=== PATIENT | female | born 1960 | race American Indian/Alaskan Native ===

== ENCOUNTER 2016-10-19 20:00 | Inpatient (IN) | payer MEDICAID ==
[2016-10-19 21:12] LABS: Hematocrit 32.4 % (30.3-42.9); Hemoglobin 10.6 gm/dl (10.1-14.3); Mean Corpuscular HGB Conc 33 % (30-34); Mean Corpuscular Hemoglobin 28 pg (28-32); Mean Corpuscular Volume 87 fl (79-97); Platelet Count 406 K/mm3 (140-440); Red Blood Count 3.72 M/mm3 (3.65-5.03); Red Cell Distribution Width 14.2 % (13.2-15.2)
[2016-10-19] MEDS ORDERED: ZOFRAN IV ONE (21:32)
[2016-10-19] MEDS ORDERED: NACL 0.9% 1000 ML 1,000 ML IV ONE (21:32)
[2016-10-19] MEDS ORDERED: TYLENOL PO ONE (21:32)
[2016-10-19 21:33] LABS: BUN/Creatinine Ratio 19.05; Calcium 9.1 mg/dL (8.4-10.2); Chloride 86.2 mmol/L (98-107); Potassium 3.5 mmol/L (3.6-5.0)
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
[2016-10-19 21:34] LABS: White Blood Count 26.1 K/mm3 (4.5-11.0)
[2016-10-19 22:26] LABS: Basophils % (Manual) 0 % (0.0-1.8); Blastocytes % (Manual) 0 %; Eosinophils % (Manual) 0 % (0.0-4.3)
[2016-10-19 22:27] LABS: Anisocytosis 1+; Hypochromasia 1+; Platelet Estimate Consistent w Auto; Poikilocytosis Few
[2016-10-19 22:28] LABS: Diff Status Complete; Giant Platelets Few
[2016-10-19] MEDS ORDERED: TYLENOL ONE (22:41)
[2016-10-19 23:11] LABS: Albumin 3.4 g/dL (3.9-5); Albumin/Globulin Ratio 0.7 %; Bilirubin,Direct 0.4 mg/dL (0-0.2); Bilirubin,Indirect 0.5 mg/dL; Bilirubin,Total 0.9 mg/dL (0.1-1.2); Total Protein 8.3 g/dL (6.3-8.2)
[2016-10-20] MEDS ORDERED: LASIX IV ONE (01:15)
[2016-10-20] MEDS ORDERED: DILAUDID IV ONE (01:15)
[2016-10-20] MEDS ORDERED: NACL 0.9% 1000 ML 1,000 ML IV ONE (01:15)
[2016-10-20] MEDS ORDERED: ZOFRAN IV ONE (01:15)
[2016-10-20 02:23] LABS: Bilirubin,Urine NEG (Negative); Blood,Urine NEG (Negative); Granular Casts,Urine 5 /LPF; Ketones,Urine NEG (Negative); Leukocyte Esterase,Urine NEG (Negative); Mucus,Urine FEW /HPF; Nitrite,Urine NEG (Negative); Urobilinogen,Urine < 2.0 mg/dL (<2.0); WBC,Urine < 1.0 /HPF (0.0-6.0)
[2016-10-20] MEDS ORDERED: TYLENOL PO PRN (03:11)
--- NOTE | 2016-10-20 03:19 | History and Physical Report ---
History of Present Illness Date of examination: 10/20/16 Chief complaint: Weakness History of present illness: Patient is a 56-year-old woman with a history of major depressive disorder, hepatitis C with cirrhosis and pancreatitis who presents with worsening constant fatigue x 2 weeks history of productive cough, body aches runny nose decrease appetite nausea without vomiting and abdominal discomfort. There is no aggravating or relieving factors. Chest x-ray is pending Medications and Allergies Allergies Allergy/AdvReac Type Severity Reaction Status Date / Time No Known Allergies Allergy Unverified 10/19/16 20:26 Home Medications Medication Instructions Recorded Confirmed Last Taken Type SEROquel 100 mg PO DAILY 10/19/16 10/19/16 Unknown History Seroquel 200 mg PO HS 10/19/16 10/19/16 Unknown History Zoloft 50 mg PO DAILY 10/19/16 10/19/16 Unknown History Active Meds: Active Medications Acetaminophen (Tylenol) 325 mg PO Q6H PRN PRN Reason: Pain, Mild (1-3) Heparin Sodium (Porcine) (Heparin) 5,000 unit SUB-Q Q12HR [facility] Sodium Chloride (Nacl 0.9% 1000 Ml) 1,000 mls @ 100 mls/hr IV DIRECT [facility] Lactulose (Cephulac) 20 gm PO Q6HR [facility] Miscellaneous Medication (Seroquel) 100 mg PO DAILY [facility] Miscellaneous Medication (Seroquel) 200 mg PO HS [facility] Miscellaneous Medication (Zoloft) 50 mg PO DAILY [facility] Ondansetron HCl (Zofran) 4 mg IV Q4H PRN PRN Reason: Nausea And Vomiting Pantoprazole Sodium (Protonix) 40 mg IV QDAY [facility] Review of Systems All systems: negative (as HPI and all other ROS reviewed and negative.) Exam - Physical Exam Narrative exam: GEN: Thin frail cachectic sick, NAD, AWAKE, ALERT, ORIENTATED 3 HEENT: NCAT, PERRL, EOMI, OP CLEAR NECK: SUPPLE, NO THYROMEGALY, NO JVD, NO LAD CVS: Tachycardia, NORMAL S1S2 LUNGS/CHEST: CTA B, NORMAL CHEST EXPANSION B, GOOD AIR ENTRY B ABD: SOFT, DISTENDED, NONTENDER GBS, NO REBOUND OR GUARDING EXT/SKIN: Bilateral SIGNIFICANT EDEMA MSK: FROM X 4 EXTREMITIES NEURO: CN 2-12 GROSSLY INTACT, NO new FOCAL DEFICITS PSY: CALM - Constitutional Vitals: Temp Pulse Resp BP Pulse Ox 98.7 F 99 H 20 106/86 99 10/19/16 20:15 10/19/16 20:15 10/19/16 20:37 10/19/16 20:15 10/19/16 20:37 Results - Labs CBC & Chem 7: 10/19/16 20:51 10/19/16 20:51 Labs: Abnormal lab results 10/19/16 10/19/16 10/19/16 Range/Units 20:51 20:51 20:51 WBC 26.1 H (4.5-11.0) K/mm3 Lymphocytes % (Manual) 6.5 L (13.4-35.0) % Monocytes % (Manual) 12.0 H (0.0-7.3) % Seg Neutrophils # Man 17.2 H (1.8-7.7) K/mm3 Monocytes # (Manual) 3.1 H (0.0-0.8) K/mm3 Sodium 126 L (137-145) mmol/L Potassium 3.5 L (3.6-5.0) mmol/L Chloride 86.2 L (98-107) mmol/L Carbon Dioxide 16 L (22-30) mmol/L BUN 101 H (7-17) mg/dL Creatinine 5.3 H (0.7-1.2) mg/dL Glucose 115 H (65-100) mg/dL Direct Bilirubin 0.4 H (0-0.2) mg/dL Ammonia (25-60) umol/L NT-Pro-B Natriuret Pep (0-900) pg/mL Total Protein 8.3 H (6.3-8.2) g/dL Albumin 3.4 L (3.9-5) g/dL 10/19/16 10/20/16 Range/Units 20:51 01:28 WBC (4.5-11.0) K/mm3 Lymphocytes % (Manual) (13.4-35.0) % Monocytes % (Manual) (0.0-7.3) % Seg Neutrophils # Man (1.8-7.7) K/mm3 Monocytes # (Manual) (0.0-0.8) K/mm3 Sodium (137-145) mmol/L Potassium (3.6-5.0) mmol/L Chloride (98-107) mmol/L Carbon Dioxide (22-30) mmol/L BUN (7-17) mg/dL Creatinine (0.7-1.2) mg/dL Glucose (65-100) mg/dL Direct Bilirubin (0-0.2) mg/dL Ammonia 68.0 H (25-60) umol/L NT-Pro-B Natriuret Pep 965.1 H (0-900) pg/mL Total Protein (6.3-8.2) g/dL Albumin (3.9-5) g/dL Assessment and Plan Patient is a 56-year-old woman with a history of major depressive disorder, hepatitis C with cirrhosis and pancreatitis who presents with worsening constant fatigue with a 2 weeks history of productive cough, body aches, runny nose, decrease appetite, nausea without vomiting and generalized abdominal discomfort. There is no aggravating or relieving factors. Chest x-ray is pending. -Acute renal failure, etiology to be evaluated: Get renal ultrasound & consult nephrology -Hyponatremia history of cirrhosis -Hypokalemia: Replace -Hyperammonemia: Treated with lactulose -Hepatorenal syndrome: Consult GI -SIRS: Get blood cultures and empirically treated with Rocephin -DVT prophylaxis: Subcutaneous heparin -Upper respiratory infection: Treat symptomatically
--- NOTE | 2016-10-20 04:33 | Ultrasound Report ---
FINAL REPORT EXAM: US RENAL BILAT HISTORY: ARF TECHNIQUE: Renal ultrasound PRIORS: None. FINDINGS: The kidneys are normal in size, contour and echogenicity. The right kidney measures 10.6 x 4.4 x 5.1 centimeter. Renal cortex measures 1.1 centimeter. There an extrarenal pelvis. The left kidney measures 11.1 x 5.8 x 5 centimeter. The renal cortex measures 1.5 centimeter. There is no evidence of hydronephrosis or nephrolithiasis. Luu catheter balloon is seen in the bladder. IMPRESSION: No hydronephrosis.
[2016-10-20] MEDS: CEPHULAC PO SCH ×3 (05:23→17:08)
[2016-10-20] MEDS: NACL 0.9% 1000 ML 1,000 ML IV SCH ×2 (05:46→17:08)
[2016-10-20] MEDS: PROTONIX IV SCH (09:31)
[2016-10-20] MEDS: ROCEPHIN/NS 1 GM/50 ML 1 GM/50 ML BAG IV SCH (09:31)
[2016-10-20] MEDS: ZOLOFT PO SCH (09:32)
--- NOTE | 2016-10-20 09:55 | XRay Report ---
AP CHEST: HISTORY: chest pain AP view of the chest demonstrates a normal mediastinal and cardiac contour with clear lungs and normal bony and soft tissue structures. Mild chronic interstitial changes are noted in the lower lung zones. IMPRESSION: No acute cardiopulmonary process.
[2016-10-20] MEDS: HEPARIN SUB-Q SCH ×2 (10:04→22:11)
[2016-10-20 10:41] LABS: Mean Corpuscular HGB Conc 32 % (30-34); Mean Corpuscular Hemoglobin 28 pg (28-32); Mean Corpuscular Volume 88 fl (79-97); Platelet Count 375 K/mm3 (140-440); Red Blood Count 3.19 M/mm3 (3.65-5.03); Red Cell Distribution Width 14.2 % (13.2-15.2)
[2016-10-20 10:42] LABS: White Blood Count 23.2 K/mm3 (4.5-11.0)
[2016-10-20 10:51] LABS: BUN/Creatinine Ratio 20.47; Calcium 8.4 mg/dL (8.4-10.2); Potassium 3.1 mmol/L (3.6-5.0)
[2016-10-20 11:18] LABS: Anisocytosis 1+; Basophils % (Manual) 0 % (0.0-1.8); Blastocytes % (Manual) 0 %; Eosinophils % (Manual) 0 % (0.0-4.3); Poikilocytosis Few
[2016-10-20 11:19] LABS: Diff Status Complete; Hypochromasia Few
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
[2016-10-20] MEDS ORDERED: K-DUR PO ONE (16:10)
--- NOTE | 2016-10-20 16:10 | Event Note ---
Date: 10/20/16 Patient seen and examined. Admitted this morning with acute renal failure. We' ll continue current management and plan as dictated in the HPI. -Acute renal failure, etiology to be evaluated: Get renal ultrasound & pending nephrology consult -Hyponatremia likely due to hepatitic cirrhosis -Hypokalemia: Continue to Replace -Hyperammonemia: Treated with lactulose -Hepatorenal syndrome: Consulted GI -SIRS: Get blood cultures and empirically treated with Rocephin -DVT prophylaxis: Subcutaneous heparin -Upper respiratory infection: Treat symptomatically and continue Rocephin
[2016-10-21] MEDS: CEPHULAC PO SCH ×4 (00:05→18:37)
[2016-10-21] MEDS: NACL 0.9% 1000 ML 1,000 ML IV SCH ×2 (02:17→13:12)
[2016-10-21 05:40] LABS: Hematocrit 26.2 % (30.3-42.9); Hemoglobin 8.6 gm/dl (10.1-14.3); Mean Corpuscular HGB Conc 33 % (30-34); Mean Corpuscular Hemoglobin 29 pg (28-32); Mean Corpuscular Volume 89 fl (79-97); Platelet Count 371 K/mm3 (140-440); Red Blood Count 2.94 M/mm3 (3.65-5.03); Red Cell Distribution Width 14.3 % (13.2-15.2)
[2016-10-21 05:42] LABS: White Blood Count 24.3 K/mm3 (4.5-11.0)
[2016-10-21 06:50] LABS: Albumin 2.4 g/dL (3.9-5); Albumin/Globulin Ratio 0.6 %; BUN/Creatinine Ratio 28.26; Bilirubin,Total 0.5 mg/dL (0.1-1.2); Chloride 110.2 mmol/L (98-107); Potassium 3.4 mmol/L (3.6-5.0); Total Protein 6.6 g/dL (6.3-8.2)
--- NOTE | 2016-10-21 09:22 | Progress Note ---
Assessment and Plan 1. NAI likely 2/2 prerenal azotemia UA + for protein suggesting Underlying CKD. No baseline CR available Renal U/S reviewed. No hydronephrosis seen. She has well preserved cortex. Her symptoms could be 2/2 uremia 2. Uremic symptoms 3. Hepatitis C infection-untreated 4. Liver cirrhosis 5. Hypovomeic hyponatremia 6. Hypokalemia 7. AG metabolic acidosis 2/2 likley uremia 8. Anemia, unspecified cause likely multifactorial including CKD 9. Leukocytosis Plan: -BUN/CR improving, f/u on urine studies-urine P/C, lytes -Work up for NAI/proteinuria including YURI panel, complements, ANCAs, U-lytes, SPEP -Continue D5W with sodium bicarb -Replete potassium, K improving -Check magnesium -Strict I/Os -Will consider renal replacement therapy if renal function remains same -Obtain records from [facility] ? baseline CR, GI notes etc.. -Has significant leukocytes. Infectious work up in progress Subjective Date of service: 10/21/16 Interval history: No new changes, No SOB/CP Objective - Vital Signs Vital signs: Vital Signs - 12hr 10/21/16 10/21/16 10/21/16 00:00 04:15 07:00 Temperature 98.1 F 98.2 F 982 F H Pulse Rate [ 88 84 81 Left] Respiratory 20 20 18 Rate Blood Pressure 112/78 110/70 113/75 [Left Arm] O2 Sat by Pulse 92 95 95 Oximetry - General Appearance General appearance: well-developed, well-nourished, appears stated age, fatigue , frail EENT: PERRL, mucous membranes moist Neck: no JVD, no thyromegaly, no carotid bruit, supple Respiratory: Present: Clear to Ascultation, Other (a) Cardiology: regular, normal heart rate, S1S2, no murmurs Gastrointestinal: normoactive bowel sounds, no tenderness Integumentary: no rash, warm and dry Neurologic: no focal deficit, alert and oriented x3, reflexes 2+ and symmetric, gait normal, strength 5/5 Musculoskeletal: no deformities, no erythema, no cyanosis, no clubbing Psychiatric: mood/affect appropriate, cooperative - Lab 10/21/16 04:59 10/21/16 04:59 Most recent lab results Calcium 8.0 mg/dL (8.4-10.2) L 10/21/16 04:59
[2016-10-21] MEDS: ROCEPHIN/NS 1 GM/50 ML 1 GM/50 ML BAG IV SCH (09:43)
[2016-10-21] MEDS: HEPARIN SUB-Q SCH ×2 (09:44→22:09)
[2016-10-21] MEDS: ZOLOFT PO SCH (09:45)
[2016-10-21] MEDS: PROTONIX IV SCH (09:45)
--- NOTE | 2016-10-21 15:03 | Progress Note ---
Assessment and Plan Assessment and plan: Patient is a 56-year-old woman with a history of major depressive disorder, hepatitis C with cirrhosis and pancreatitis who presents with worsening constant fatigue x 2 weeks, body aches, decrease appetite nausea without vomiting and abdominal discomfort. She also complained of upper respiratory symptoms. In the ER she had have white count of 26.1, sodium 126 and creatinine 5.3. Acute renal failure, - etiology to be evaluated: -renal ultrasound showed medical renal disease -Nephrology following Pulmonary edema -Likely from IV fluid hydration and hypoalbuminemia -We will reduce the rate of IV fluid, will get chest x-ray Hyponatremia likely due to hepatitic cirrhosis - Improved Hypokalemia: Continue to Replace Hyperammonemia: Treated with lactulose Hepatorenal syndrome: Consulted GI, will follow the recommendation SIRS: Follow blood cultures and empirically treated with Rocephin Upper respiratory infection: Treat symptomatically and continue Rocephin DVT prophylaxis: Subcutaneous heparin History Interval history: Patient seen and examined. Medical records and medication list reviewed. No acute event overnight noted by the RN. Patient complains of cough and exertional dyspnea. Discussed plan of care at bedside with patient and her family members. Hospitalist Physical - Physical exam Narrative exam: GENERAL: -[place] female Malnourished appearing older than her stated age, lying on bed appeared to be in no discomfort. HEENT: Normocephalic. Atraumatic. No conjunctival congestion or icterus. Patient has moist mucous membranes. NECK: Supple. Trachea midline. CHEST/LUNGS: Coarse breath sounds auscultated bilaterally, breathing nonlabored. No wheezes crackles or rhonchi. HEART/CARDIOVASCULAR: Regular in rate and rhythm. S1 and S2 positive. ABDOMEN: Abdomen is soft, nontender. Patient has normal bowel sounds. SKIN: There is no rash. Warm and dry. NEURO: No focal motor deficit. Follows command. MUSCULOSKELETAL: No joint effusion or tenderness. EXTRIMITY: No edema, no cyanosis or clubbing. PSYCH: Cooperative. - Constitutional Vitals: Temp Pulse Resp BP Pulse Ox 982 F H 81 18 113/75 95 10/21/16 07:00 10/21/16 07:00 10/21/16 07:00 10/21/16 07:00 10/21/16 07:00 Results - Labs CBC & Chem 7: 10/22/16 04:59 10/22/16 04:59 Labs: Laboratory Last Values WBC 24.3 K/mm3 (4.5-11.0) H 10/21/16 04:59 RBC 2.94 M/mm3 (3.65-5.03) L 10/21/16 04:59 Hgb 8.6 gm/dl (10.1-14.3) L 10/21/16 04:59 Hct 26.2 % (30.3-42.9) L 10/21/16 04:59 MCV 89 fl (79-97) 10/21/16 04:59 MCH 29 pg (28-32) 10/21/16 04:59 MCHC 33 % (30-34) 10/21/16 04:59 RDW 14.3 % (13.2-15.2) 10/21/16 04:59 Plt Count 371 K/mm3 (140-440) 10/21/16 04:59 Add Manual Diff Complete 10/20/16 10:00 Total Counted 100 10/20/16 10:00 Seg Neuts % (Manual) 77.0 % (40.0-70.0) H 10/20/16 10:00 Band Neutrophils % 7.0 % 10/20/16 10:00 Lymphocytes % (Manual) 8.0 % (13.4-35.0) L 10/20/16 10:00 Reactive Lymphs % (Man) 0 % 10/20/16 10:00 Monocytes % (Manual) 8.0 % (0.0-7.3) H 10/20/16 10:00 Eosinophils % (Manual) 0 % (0.0-4.3) 10/20/16 10:00 Basophils % (Manual) 0 % (0.0-1.8) 10/20/16 10:00 Metamyelocytes % 0 % 10/20/16 10:00 Myelocytes % 0 % 10/20/16 10:00 Promyelocytes % 0 % 10/20/16 10:00 Blast Cells % 0 % 10/20/16 10:00 Nucleated RBC % Not Reportable 10/20/16 10:00 Seg Neutrophils # Man 17.9 K/mm3 (1.8-7.7) H 10/20/16 10:00 Band Neutrophils # 1.6 K/mm3 10/20/16 10:00 Lymphocytes # (Manual) 1.9 K/mm3 (1.2-5.4) 10/20/16 10:00 Abs React Lymphs (Man) 0.0 K/mm3 10/20/16 10:00 Monocytes # (Manual) 1.9 K/mm3 (0.0-0.8) H 10/20/16 10:00 Eosinophils # (Manual) 0.0 K/mm3 (0.0-0.4) 10/20/16 10:00 Basophils # (Manual) 0.0 K/mm3 (0.0-0.1) 10/20/16 10:00 Metamyelocytes # 0.0 K/mm3 10/20/16 10:00 Myelocytes # 0.0 K/mm3 10/20/16 10:00 Promyelocytes # 0.0 K/mm3 10/20/16 10:00 Blast Cells # 0.0 K/mm3 10/20/16 10:00 WBC Morphology Not Reportable 10/20/16 10:00 Hypersegmented Neuts Not Reportable 10/20/16 10:00 Hyposegmented Neuts Not Reportable 10/20/16 10:00 Hypogranular Neuts Not Reportable 10/20/16 10:00 Smudge Cells Not Reportable 10/20/16 10:00 Toxic Granulation Not Reportable 10/20/16 10:00 Toxic Vacuolation Not Reportable 10/20/16 10:00 Dohle Bodies Not Reportable 10/20/16 10:00 Pelger-Huet Anomaly Not Reportable 10/20/16 10:00 Mariana Rods Not Reportable 10/20/16 10:00 Platelet Estimate Not Reportable 10/20/16 10:00 Clumped Platelets Not Reportable 10/20/16 10:00 Plt Clumps, EDTA Not Reportable 10/20/16 10:00 Large Platelets Not Reportable 10/20/16 10:00 Giant Platelets Not Reportable 10/20/16 10:00 Platelet Satelliting Not Reportable 10/20/16 10:00 Plt Morphology Comment Not Reportable 10/20/16 10:00 RBC Morphology Not Reportable 10/20/16 10:00 Dimorphic RBCs Not Reportable 10/20/16 10:00 Polychromasia Not Reportable 10/20/16 10:00 Hypochromasia Few 10/20/16 10:00 Poikilocytosis Few 10/20/16 10:00 Anisocytosis 1+ 10/20/16 10:00 Microcytosis Not Reportable 10/20/16 10:00 Macrocytosis Not Reportable 10/20/16 10:00 Spherocytes Not Reportable 10/20/16 10:00 Pappenheimer Bodies Not Reportable 10/20/16 10:00 Sickle Cells Not Reportable 10/20/16 10:00 Target Cells Not Reportable 10/20/16 10:00 Tear Drop Cells Not Reportable 10/20/16 10:00 Ovalocytes Not Reportable 10/20/16 10:00 Helmet Cells Not Reportable 10/20/16 10:00 [place] Bodies Not Reportable 10/20/16 10:00 [place] Rings Not Reportable 10/20/16 10:00 [place] Cells Not Reportable 10/20/16 10:00 Bite Cells Not Reportable 10/20/16 10:00 Crenated Cell Not Reportable 10/20/16 10:00 Elliptocytes Not Reportable 10/20/16 10:00 Acanthocytes (Spur) Not Reportable 10/20/16 10:00 Rouleaux Not Reportable 10/20/16 10:00 Hemoglobin C Crystals Not Reportable 10/20/16 10:00 Schistocytes Not Reportable 10/20/16 10:00 Malaria parasites Not Reportable 10/20/16 10:00 [place] Bodies Not Reportable 10/20/16 10:00 Hem Pathologist Commnt No 10/20/16 10:00 Sodium 140 mmol/L (137-145) D 10/21/16 04:59 Potassium 3.4 mmol/L (3.6-5.0) L 10/21/16 04:59 Chloride 110.2 mmol/L (98-107) H 10/21/16 04:59 Carbon Dioxide 16 mmol/L (22-30) L 10/21/16 04:59 Anion Gap 17 mmol/L 10/21/16 04:59 BUN 65 mg/dL (7-17) H 10/21/16 04:59 Creatinine 2.3 mg/dL (0.7-1.2) H 10/21/16 04:59 Estimated GFR 26 ml/min 10/21/16 04:59 BUN/Creatinine Ratio 28.26 % 10/21/16 04:59 Glucose 92 mg/dL (65-100) 10/21/16 04:59 Calcium 8.0 mg/dL (8.4-10.2) L 10/21/16 04:59 Total Bilirubin 0.5 mg/dL (0.1-1.2) 10/21/16 04:59 Direct Bilirubin 0.4 mg/dL (0-0.2) H 10/19/16 20:51 Indirect Bilirubin 0.5 mg/dL 10/19/16 20:51 AST 21 units/L (5-40) 10/21/16 04:59 ALT 7 units/L (7-56) 10/21/16 04:59 Alkaline Phosphatase 85 units/L (35-129) 10/21/16 04:59 Ammonia 68.0 umol/L (25-60) H 10/20/16 01:28 NT-Pro-B Natriuret Pep 965.1 pg/mL (0-900) H 10/19/16 20:51 Total Protein 6.6 g/dL (6.3-8.2) D 10/21/16 04:59 Albumin 2.4 g/dL (3.9-5) L 10/21/16 04:59 Albumin/Globulin Ratio 0.6 % 10/21/16 04:59 Lipase 37 units/L (13-60) 10/19/16 20:51 Urine Color Yellow (Yellow) 10/20/16 01:18 Urine Turbidity Clear (Clear) 10/20/16 01:18 Urine pH 5.0 (5.0-7.0) 10/20/16 01:18 Ur Specific [place] 1.017 (1.003-1.030) 10/20/16 01:18 Urine Protein 30 mg/dl mg/dL (Negative) 10/20/16 01:18 Urine Glucose (UA) Neg mg/dL (Negative) 10/20/16 01:18 Urine Ketones Neg mg/dL (Negative) 10/20/16 01:18 Urine Blood Neg (Negative) 10/20/16 01:18 Urine Nitrite Neg (Negative) 10/20/16 01:18 Urine Bilirubin Neg (Negative) 10/20/16 01:18 Urine Urobilinogen < 2.0 mg/dL (<2.0) 10/20/16 01:18 Ur Leukocyte Esterase Neg (Negative) 10/20/16 01:18 Urine WBC (Auto) < 1.0 /HPF (0.0-6.0) 10/20/16 01:18 Urine RBC (Auto) 4.0 /HPF (0.0-6.0) 10/20/16 01:18 U Epithel Cells (Auto) 1.0 /HPF (0-13.0) 10/20/16 01:18 Amorphous Crystals 2+ 10/20/16 01:18 Hyaline Casts 3 /LPF 10/20/16 01:18 Granular Casts 5 /LPF 10/20/16 01:18 Urine Mucus Few /HPF 10/20/16 01:18 Urine Osmolality 462 Mosm/kg 10/21/16 07:50 Hepatitis A IgM Ab Non-reactive (NonReactive) 10/20/16 21:48 Hep Bs Antigen Non-reactive (Negative) 10/20/16 21:48 Hep B Core IgM Ab Non-reactive (NonReactive) 10/20/16 21:48 Hepatitis C Antibody Reactive (NonReactive) 10/20/16 21:48 - Imaging and Cardiology Chest x-ray: report reviewed
--- NOTE | 2016-10-21 16:11 | Gastroenterology Consultation ---
History of Present Illness - Reason for Consult Consult date: 10/21/16 cirrhosis, hepatitis C Requesting physician: SCOTTIE BRADLEY - History of Present Illness The patient is a 56 year old female followed normally at [facility] for cirrhosis and hepatitis C now brought to the hospital by her family for progressive weakness. She was found to be in renal failure with electrolyte derrangements. She is a poor historian, but also report being treated for psychotic depression. The patient has known of her hepatitis C for several years and there has been apparent discussion of therapy. She is actively drinking 4 large beers ("tall boys") on a daily basis. She has had ascites in the past according to the family but no episodes of GI bleeding. Past History Past Medical History: other (hepatitis C, liver cirrhosis, kidney disease ) Past Surgical History: No surgical history Social history: denies: smoking, alcohol abuse, IV drug use Family history: other (No FH Kidney disease ) Medications and Allergies Allergies Allergy/AdvReac Type Severity Reaction Status Date / Time No Known Allergies Allergy Unverified 10/19/16 20:26 Home Medications Medication Instructions Recorded Confirmed Last Taken Type SEROquel 100 mg PO DAILY 10/19/16 10/19/16 Unknown History Seroquel 200 mg PO HS 10/19/16 10/19/16 Unknown History Zoloft 50 mg PO DAILY 10/19/16 10/19/16 Unknown History Active Meds: Active Medications Acetaminophen (Tylenol) 325 mg PO Q6H PRN PRN Reason: Pain, Mild (1-3) Last Admin: 10/21/16 09:45 Dose: 325 mg Albuterol/Ipratropium (Duoneb 0.5 Mg-3 Mg/3 Ml Soln) 1 ampul IH Q6HRT [facility] Heparin Sodium (Porcine) (Heparin) 5,000 unit SUB-Q Q12HR AMELIA Last Admin: 10/21/16 09:44 Dose: 5,000 unit Sodium Chloride (Nacl 0.9% 1000 Ml) 1,000 mls @ 50 mls/hr IV DIRECT AMELIA Last Admin: 10/21/16 13:12 Dose: 100 mls/hr Ceftriaxone Sodium (Rocephin/Ns 1 Gm/50 Ml) 1 gm in 50 mls @ 100 mls/hr IV Q24HR AMELIA PRN Reason: Protocol Last Admin: 10/21/16 09:43 Dose: 100 mls/hr Sodium Bicarbonate 150 meq/ (Dextrose) 1,150 mls @ 125 mls/hr IV DIRECT [facility] Lactulose (Cephulac) 20 gm PO Q6HR [facility] Last Admin: 10/21/16 12:32 Dose: 20 gm Ondansetron HCl (Zofran) 4 mg IV Q4H PRN PRN Reason: Nausea And Vomiting Pantoprazole Sodium (Protonix) 40 mg PO DAILY [facility] Quetiapine Fumarate (Seroquel) 100 mg PO DAILY [facility] Last Admin: 10/21/16 09:45 Dose: 100 mg Quetiapine Fumarate (Seroquel) 200 mg PO HS [facility] Last Admin: 10/20/16 22:10 Dose: 200 mg Sertraline HCl (Zoloft) 50 mg PO DAILY [facility] Last Admin: 10/21/16 09:45 Dose: 50 mg Review of Systems - Review of Systems Constitutional: no weight loss, no weight gain Eyes: no change in vision Ears, Nose, Throat: no decreased hearing, no difficulty swallowing, no epistaxis Breasts: deferred Cardiovascular: no chest pain, no shortness of breath Respiratory: no cough, no shortness of breath, no wheezing Gastrointestinal: no abdominal pain, no nausea, no vomiting, no diarrhea, no constipation, no change in bowel habits, no hematemesis, no coffee ground emesis Rectal: no pain Female Genitourinary: deferred Musculoskeletal: no gait dysfunction Integumentary: no rash, no pruritis, no jaundice Neurological: weakness, memory loss, no head injury, no paralysis Psychiatric: memory loss, no anxiety Endocrine: no cold intolerance, no heat intolerance Hematologic/Lymphatic: no easy bruising, no easy bleeding Allergic/Immunologic: no wheezing Exam - Constitutional Vital Signs: Temp Pulse Resp BP Pulse Ox 982 F H 81 18 113/75 95 10/21/16 07:00 10/21/16 07:00 10/21/16 07:00 10/21/16 07:00 10/21/16 07:00 General appearance: no acute distress, well-nourished, disheveled - EENT Eyes: PERRL ENT: hearing intact, clear oral mucosa, poor dentition - Neck Neck: supple, normal ROM, no masses or JVD - Respiratory Respiratory effort: normal Respiratory: bilateral: CTA - Breasts Breasts: deferred - Cardiovascular Rhythm: regular Heart Sounds: Present: S1 & S2. Absent: gallop, rub Extremities: pulses intact, No edema, normal color, Full ROM - Gastrointestinal General gastrointestinal: Present: soft, non-tender, non-distended, normal bowel sounds. Absent: hepatomegaly, splenomegaly, mass Rectal Exam: deferred - Genitourinary Female Genitourinary: deferred - Integumentary Integumentary: Present: clear, warm, dry - Neurologic Neurological: oriented to person, oriented to time, strength equal bilaterally, other (knows the president, year, but not the month) - Psychiatric Psychiatric: appropriate mood/affect, no intact judgment & insight, memory intact - Labs CBC & Chem 7: 10/21/16 04:59 10/21/16 04:59 Lab Results: Laboratory Results - last 24 hr 10/20/16 10/21/16 10/21/16 21:48 04:59 04:59 WBC 24.3 H RBC 2.94 L Hgb 8.6 L Hct 26.2 L MCV 89 MCH 29 MCHC 33 RDW 14.3 Plt Count 371 Sodium 140 D Potassium 3.4 L Chloride 110.2 H Carbon Dioxide 16 L Anion Gap 17 BUN 65 H Creatinine 2.3 H Estimated GFR 26 BUN/Creatinine Ratio 28.26 Glucose 92 Calcium 8.0 L Total Bilirubin 0.5 AST 21 ALT 7 Alkaline Phosphatase 85 Total Protein 6.6 D Albumin 2.4 L Albumin/Globulin Ratio 0.6 Urine Osmolality Hepatitis A IgM Ab Non-reactive Hep Bs Antigen Non-reactive Hep B Core IgM Ab Non-reactive Hepatitis C Antibody Reactive 10/21/16 07:50 WBC RBC Hgb Hct MCV MCH MCHC RDW Plt Count Sodium Potassium Chloride Carbon Dioxide Anion Gap BUN Creatinine Estimated GFR BUN/Creatinine Ratio Glucose Calcium Total Bilirubin AST ALT Alkaline Phosphatase Total Protein Albumin Albumin/Globulin Ratio Urine Osmolality 462 Hepatitis A IgM Ab Hep Bs Antigen Hep B Core IgM Ab Hepatitis C Antibody Assessment and Plan - Patient Problems (1) Cirrhosis Current Visit: Yes Status: Acute Qualifiers: Hepatic cirrhosis type: H Ascites presence: A Plan to address problem: Stable. Will order u/s of abdomen to assess for focal hepatic lesions, ascites. (2) Hepatitis C Current Visit: Yes Status: Acute Qualifiers: Viral hepatitis chronicity: V Hepatic coma status: H Plan to address problem: Stable hepatitis C. Not an ideal candidate presently for therapy due to alcoholism and potential compliance issues. She will continue f/u at [facility] on discharge for this. (3) Leukocytosis Current Visit: Yes Status: Acute Qualifiers: Leukocytosis type: L Plan to address problem: Uncertain origin
[2016-10-21] MEDS: DUONEB 0.5 MG-3 MG/3 ML SOLN IH SCH ×2 (16:40→20:45)
[2016-10-22] MEDS: CEPHULAC PO SCH ×5 (01:17→18:59)
[2016-10-22] MEDS: NACL 0.9% 1000 ML 1,000 ML IV SCH (01:58)
[2016-10-22] MEDS: DUONEB 0.5 MG-3 MG/3 ML SOLN IH SCH ×4 (02:42→19:37)
[2016-10-22 05:39] LABS: Hematocrit 23.8 % (30.3-42.9); Hemoglobin 7.4 gm/dl (10.1-14.3); Mean Corpuscular HGB Conc 31 % (30-34); Mean Corpuscular Hemoglobin 28 pg (28-32); Mean Corpuscular Volume 90 fl (79-97); Platelet Count 395 K/mm3 (140-440); Red Blood Count 2.64 M/mm3 (3.65-5.03); Red Cell Distribution Width 14.8 % (13.2-15.2)
[2016-10-22 05:51] LABS: White Blood Count 25.8 K/mm3 (4.5-11.0)
[2016-10-22 06:16] LABS: BUN/Creatinine Ratio 26.92; Calcium 7.3 mg/dL (8.4-10.2); Chloride 116.3 mmol/L (98-107)
[2016-10-22 06:40] LABS: Potassium 2.9 mmol/L (3.6-5.0)
[2016-10-22] MEDS ORDERED: K-DUR PO ONE ×2 (06:44→09:00)
--- NOTE | 2016-10-22 07:39 | XRay Report ---
AP CHEST: HISTORY: Short of breath AP view of the chest demonstrates a normal mediastinal and cardiac contour with clear lungs and normal bony and soft tissue structures. IMPRESSION: No acute cardiopulmonary process is appreciated. No significant change since 10/19/16.
--- NOTE | 2016-10-22 07:59 | Admit Criteria Form ---
Admission Criteria Documentation: RENAL FAILURE, ACUTE Clinical Indications for Admission to Inpatient Care ( Place 'X' for any and all applicable criteria): Admission is indicated for ALL (if I & II) or III of the following [A](2)(3)(4)( 5)(6)(7): [X]I. Acute renal failure as indicated by ANY ONE of the following: [X]a) A 3-fold rise in serum creatinine from baseline [X]b) Serum creatinine greater than 4 mg/dL (354 micromoles/L) with an acute rise greater than 0.5 mg/dL (44.2 micromoles/L) [ ]c) Reduction of more than 75% in estimated glomerular filtration rate from baseline [ ]d) Estimated glomerular filtration rate less than 35 mL/min/1.73m2 (0.59mL/sec/1.73m2)in a child up to 18 years of age [ ]e) Anuria indicated by ALL of the following: [ ]i) Adequate volume status [ ]ii) Cessation of urine output indicated by ANY ONE of the following: [ ]1) Urine output less than 0.3 mL/kg/hr for 24 hours [ ]2) Anuria (urine output less than 0.1 mL/kg/ hr) for 12 hours [ ] II. Renal failure cannot be managed in an outpatient setting or observational care setting as indicating by ANY ONE of the following: [ ]a) Altered mental status that is severe or persistent [ ]b) Volume overload or Respiratory distress (eg, clinically significant pulmonary edema) that is severe or persistent [ ]c) Cardiac arrhythmias of immediate concern [ ]d) Hemodynamic instability [ ]e) Clinically significant electrolyte abnormality that requires inpatient care (eg, hyperkalemia with severe ECG findings)[B] [ ]f) Clinically significant metabolic abnormality (eg, acidosis) that is severe or persistent [ ]g) Acute treatment of renal failure (eg, renal replacement therapy) not feasible or appropriate in observational care setting [ ]h) Clinical situation too unstable or uncertain (eg, inadequate urine output, ongoing decline in renal function, etiology unclear) [ ]i) Necessary support and caregiver ability to comply with outpatient treatment cannot be arranged in observation care timeframe (eg, within 24 hours) [ ]j) Other significant finding or clinical condition judged not to be within scope of observation care [ ]III.General contraindications and/or Inappropriate clinical situations for Observational Care in patients with Acute Renal Failure, when ANY ONE of the following is required: [ ]a) Prediction of prolongation of LOS based on ANY ONE of the following may be considered as a contraindication for observational care 2, 3, 4, 5, 6, 7, 8 , 9, 10, 11 [ ]i) Age > 65 yrs. [ ]ii) Patient arriving by ambulance [ ]iii) Patient with high acuity [ ]iv) Patient requiring vital sign monitoring [ ]v) Patient on IV medication [ ]b) Systolic blood pressures 180mmHg 3,12 [ ]c) Patient with altered mental status including delirium and other alteration of consciousness, (3) [ ]d) Patient whose discharge disposition will be to a intermediate home or rehabilitation home should not be managed in Emergency Department Observation Unit. CMS rule requires 3 days hospital stay before such placement.3,13 [ ]e) Patient with failure to thrive due to broad array of etiologies 3, 16,17 [ ]f) Inability to ambulate 3,14 Extended stay beyond goal length of stay may be needed for(13) [ ]a) Continuing uremic complications [ ]b) Care for comorbidities [ ]c) acute renal failure [ ]d) Need for dialysis The original [email or web address] content created by [email or web address] has been revised. The portions of the content which have been revised are identified through the use of italic text or in bold, and [facility] has neither reviewed nor approved the modified material. All other unmodified content is copyright [email or web address]. Please see references footnoted in the original [email or web address] edition 2016 Admission Criteria Met: Yes
[2016-10-22 08:50] LABS: Basophils % (Manual) 0 % (0.0-1.8); Blastocytes % (Manual) 0 %; Eosinophils % (Manual) 0 % (0.0-4.3)
[2016-10-22 08:51] LABS: Anisocytosis 1+; Diff Status Complete; Poikilocytosis 1+
--- NOTE | 2016-10-22 09:40 | Ultrasound Report ---
ULTRASOUND ABDOMEN COMPLETE: Technique: Transabdominal ultrasound with color Doppler interrogation. History: Cirrhosis, ascites, hepatoma. Findings: The liver is normal size, contour and echotexture. There are no convincing cirrhotic changes in the liver on ultrasound. No liver mass is identified. The gallbladder dimensions are within normal limits without intraluminal stone, wall thickening, or pericholecystic fluid. The CBD is normal caliber. The visualized portions of the pancreas including the head and proximal body are within normal limits. The kidneys demonstrate no hydronephrosis or mass. The renal parenchyma is slightly echogenic consistent with renal parenchymal disease. The spleen and aorta are within normal limits. No aneurysmal dilatation is noted. No ascites. IMPRESSION: Slightly echogenic kidneys consistent with mild renal parenchymal disease. Otherwise, unremarkable exam of the abdomen.
--- NOTE | 2016-10-22 09:45 | Progress Note ---
Assessment and Plan 1. NAI likely 2/2 prerenal azotemia 2. Uremic symptoms 3. Hepatitis C infection-untreated 4. Liver cirrhosis 5. Hypovomeic hyponatremia 6. Hypokalemia 7. AG metabolic acidosis 2/2 likley uremia 8. Anemia, unspecified cause likely multifactorial including CKD 9. Leukocytosis Plan: -BUN/CR significantly improved from her admission( 103/5.4 to the current level of 35/1.3) - UA + for protein suggesting Underlying CKD. No baseline CR available Renal U/S reviewed. No hydronephrosis seen. She has well preserved cortex. -Follow up on the remaining work up for proteinuria -Hyponatremia resolved -She has worsening acidosis despite bicarb drip. Obtain lactic acid level, ketones, ABG for further evaluation. She has tachypenia likley to compensate for her metabolic acidosis. CxR with no acute findings. -Replete potassium IV/PO.Check magesium level -F/u on work up for leukocytes Subjective Date of service: 10/22/16 Interval history: No new changes. SOB improving Objective - Vital Signs Vital signs: Vital Signs - 12hr 10/22/16 10/22/16 10/22/16 00:05 02:35 02:47 Temperature 99.2 F Pulse Rate [ 99 H 101 H Anterior Bilateral Throughout] Pulse Rate [ 121 H Left] Respiratory 20 Rate Respiratory 16 10 L Rate [Anterior Bilateral Throughout] Blood Pressure 131/81 [Left Arm] O2 Sat by Pulse 98 Oximetry 10/22/16 10/22/16 04:30 07:00 Temperature 99.0 F 97.1 F L Pulse Rate [ Anterior Bilateral Throughout] Pulse Rate [ 116 H 113 H Left] Respiratory 20 20 Rate Respiratory Rate [Anterior Bilateral Throughout] Blood Pressure 131/80 119/82 [Left Arm] O2 Sat by Pulse 97 97 Oximetry - General Appearance General appearance: well-developed, well-nourished, appears stated age, fatigue , frail EENT: PERRL, mucous membranes moist Neck: no JVD, no thyromegaly, no carotid bruit, supple Respiratory: Present: Clear to Ascultation, Other (no wheezing ) Cardiology: regular, normal heart rate, S1S2, no murmurs Gastrointestinal: normoactive bowel sounds, no tenderness Integumentary: no rash, warm and dry Neurologic: no focal deficit, alert and oriented x3, reflexes 2+ and symmetric, gait normal, strength 5/5 Musculoskeletal: no deformities, no erythema, no cyanosis, no clubbing Psychiatric: mood/affect appropriate, cooperative - Lab 10/22/16 04:59 10/22/16 04:59 Most recent lab results Calcium 7.3 mg/dL (8.4-10.2) L 10/22/16 04:59 Urine Creatinine 105.8 mg/dL (0.1-20.0) H 10/21/16 07:50 Urine Sodium 19 mEq/L 10/21/16 07:50
--- NOTE | 2016-10-22 10:57 | Gastroenterology Progress Note ---
Assessment and Plan - Patient Problems (1) Cirrhosis Current Visit: Yes Status: Acute Qualifiers: Hepatic cirrhosis type: H Ascites presence: A Plan to address problem: Probable cirrhosis, but no convincing evidence on u/s. No focal hepatic lesions or ascites on u/s. Stable GI isabel. OK to send home when renal ftn stabilizes. She does not have HRS. Patient has been followed at [facility]. (2) Hepatitis C Current Visit: Yes Status: Acute Qualifiers: Viral hepatitis chronicity: V Hepatic coma status: H (3) Leukocytosis Current Visit: Yes Status: Acute Qualifiers: Leukocytosis type: L Subjective Date of service: 10/22/16 Principal diagnosis: Cirrhosis Interval history: The patient reports feeling well today. No discomfort Objective - Constitutional Vitals: Temp Pulse Resp BP Pulse Ox 97.1 F L 113 H 20 119/82 97 10/22/16 07:00 10/22/16 07:00 10/22/16 07:00 10/22/16 07:00 10/22/16 07:00 General appearance: no acute distress - EENT ENT: hearing intact, clear oral mucosa, dentition normal - Respiratory Respiratory effort: normal Respiratory: bilateral: CTA - Cardiovascular Rhythm: regular - Gastrointestinal General gastrointestinal: Present: soft, non-tender, non-distended, normal bowel sounds - Neurologic Neurological: alert and oriented x3 - Labs CBC & Chem 7: 10/22/16 04:59 10/22/16 04:59 Labs: Laboratory Results - last 24 hr 10/21/16 10/22/16 10/22/16 07:50 04:59 04:59 WBC 25.8 H RBC 2.64 L Hgb 7.4 L Hct 23.8 L MCV 90 MCH 28 MCHC 31 RDW 14.8 Plt Count 395 Add Manual Diff Complete Total Counted 100 Seg Neuts % (Manual) 79.0 H Band Neutrophils % 6.0 Lymphocytes % (Manual) 6.0 L Reactive Lymphs % (Man) 0 Monocytes % (Manual) 9.0 H Eosinophils % (Manual) 0 Basophils % (Manual) 0 Metamyelocytes % 0 Myelocytes % 0 Promyelocytes % 0 Blast Cells % 0 Nucleated RBC % Not Reportable Seg Neutrophils # Man 20.4 H Band Neutrophils # 1.5 Lymphocytes # (Manual) 1.5 Abs React Lymphs (Man) 0.0 Monocytes # (Manual) 2.3 H Eosinophils # (Manual) 0.0 Basophils # (Manual) 0.0 Metamyelocytes # 0.0 Myelocytes # 0.0 Promyelocytes # 0.0 Blast Cells # 0.0 WBC Morphology Not Reportable Hypersegmented Neuts Not Reportable Hyposegmented Neuts Not Reportable Hypogranular Neuts Not Reportable Smudge Cells Not Reportable Toxic Granulation Not Reportable Toxic Vacuolation Not Reportable Dohle Bodies Not Reportable Pelger-Huet Anomaly Not Reportable Mariana Rods Not Reportable Platelet Estimate Not Reportable Clumped Platelets Not Reportable Plt Clumps, EDTA Not Reportable Large Platelets Not Reportable Giant Platelets Not Reportable Platelet Satelliting Not Reportable Plt Morphology Comment Not Reportable RBC Morphology Not Reportable Dimorphic RBCs Not Reportable Polychromasia Not Reportable Hypochromasia Not Reportable Poikilocytosis 1+ Anisocytosis 1+ Microcytosis Not Reportable Macrocytosis Not Reportable Spherocytes Not Reportable Pappenheimer Bodies Not Reportable Sickle Cells Not Reportable Target Cells Not Reportable Tear Drop Cells Not Reportable Ovalocytes Not Reportable Helmet Cells Not Reportable Steen-[place] Bodies Not Reportable [place] Rings Not Reportable [place] Cells Not Reportable Bite Cells Not Reportable Crenated Cell Not Reportable Elliptocytes Not Reportable Acanthocytes (Spur) Not Reportable Rouleaux Not Reportable Hemoglobin C Crystals Not Reportable Schistocytes Not Reportable Malaria parasites Not Reportable Hakan Bodies Not Reportable Hem Pathologist Commnt No Sodium 145 Potassium 2.9 L* Chloride 116.3 H Carbon Dioxide 12 L Anion Gap 20 BUN 35 H Creatinine 1.3 H Estimated GFR 51 BUN/Creatinine Ratio 26.92 Glucose 100 Calcium 7.3 L Urine Creatinine 105.8 H Urine Sodium 19 Urine Chloride 39.4 L
[2016-10-22] MEDS: PROTONIX PO SCH (11:37)
[2016-10-22] MEDS: ZOLOFT PO SCH (11:37)
[2016-10-22] MEDS: SODIUM BICARBONATE 150 MEQ in D5W 1,000 ML IV SCH (11:38)
[2016-10-22] MEDS: HEPARIN SUB-Q SCH (11:40)
[2016-10-22] MEDS ORDERED: NORMODYNE IV PRN (11:52)
[2016-10-22] MEDS ORDERED: LASIX IV ONE (11:56)
[2016-10-22] MEDS: ROCEPHIN/NS 1 GM/50 ML 1 GM/50 ML BAG IV SCH (12:06)
[2016-10-22 12:34] LABS: ISTAT Base Excess -15; ISTAT DEVICE 0; ISTAT HCO3 11.7; ISTAT PCO2 24.1 (35-45); ISTAT PH 7.294 (7.35-7.45); ISTAT PO2 36 (80-105); ISTAT SO2 65; ISTAT TCO2 12
[2016-10-22 12:34] LABS: ISTAT Base Excess -14; ISTAT DEVICE 0; ISTAT HCO3 11.5; ISTAT PCO2 21.8 (35-45); ISTAT PO2 48 (80-105); ISTAT SO2 82; ISTAT TCO2 12
[2016-10-22] MEDS: SODIUM BICARBONATE PO SCH ×3 (13:21→21:21)
[2016-10-22] MEDS: KCL 10MEQ/100ML 10 MEQ/100 ML BAG IV SCH ×3 (13:22→19:00)
[2016-10-22] MEDS: MORPHINE IV PRN ×2 (13:33→17:47)
[2016-10-22] MEDS ORDERED: DUONEB 0.5 MG-3 MG/3 ML SOLN IH SCH (14:00)
[2016-10-22] MEDS ORDERED: PROVENTIL IH PRN (14:13)
--- NOTE | 2016-10-22 15:17 | Nuclear Medicine Report ---
LUNG SCAN, VENTILATION AND PERFUSION: History: Shortness of breath. Technique: 5mci of Tc99m MAA was infused for the perfusion images. 15mci XE 133 gas was inhaled for the ventilatory images. Correlation is made with a chest x-ray dated 10/22/16. Findings: Inhalation of Xenon gas demonstrates a normal distribution of the activity throughout both lungs. The wash out phases show no focal retention of activity. After injection of Technetium 99m macroaggregated albumin gamma camera imaging of the lungs in multiple projections demonstrates normal pulmonary contours with a homogeneous distribution of activity. No focal areas of perfusion deficiency are identified. IMPRESSION: Low probability for pulmonary embolus.
--- NOTE | 2016-10-22 15:26 | Progress Note ---
Assessment and Plan Assessment and plan: Patient is a 56-year-old woman with a history of major depressive disorder, hepatitis C with cirrhosis and pancreatitis who presents with worsening constant fatigue x 2 weeks, body aches, decrease appetite nausea without vomiting and abdominal discomfort. She also complained of upper respiratory symptoms. In the ER she had have white count of 26.1, sodium 126 and creatinine 5.3. Acute renal failure, (ATN vs vasomotor nephropathy) -renal ultrasound showed medical renal disease -Nephrology following - renal function significantly improved with IV fluid - avoid nephrotoxins Acute hypoxi respiratory failure - suspected Pulmonary edema, CXR clear, VQ scan did not show any PE -Likely from IV fluid hydration and hypoalbuminemia -We will reduce the rate of IV fluid - cont supplimental O2 and nebulizer breathing treatment Hyponatremia likely due to dehydration - Improved Hypokalemia: Continue to Replace, ckeck Mg level (if low, will replace) Metabolic acidosis; - likely from renal failure, on NaHCO3 fluid Hyperammonemia: Treated with lactulose, cont to trend h/o Hepatitis C: GI following, abdominal US did not show any sign of cirrhosis Alcohol abuse: will place her on CIWA protocol SIRS: blood cultures negative and empirically treat with Rocephin, will consult ID Upper respiratory infection: Treat symptomatically and continue Rocephin Anemia, Normocytic ; likely due to chronic disease, will check for occult blood in stool, iron pannel, B12, folate Moderate to severe malnutrition; dietary consult DVT prophylaxis: will place on SCD, no heparin as H and H dropping History Interval history: Patient seen and examined. Medical records and medication list reviewed. No acute event overnight noted by the RN. Patient cont to complains of cough and exertional dyspnea. ABG showed PO2 of 48, placed on supplimental O2 Discussed plan of care at bedside with patient Hospitalist Physical - Physical exam Narrative exam: GENERAL: -[place] female Malnourished appearing older than her stated age, lying on bed appeared to be in mild discomfort. HEENT: Normocephalic. Atraumatic. No conjunctival congestion or icterus. Patient has moist mucous membranes. NECK: Supple. Trachea midline. CHEST/LUNGS: Coarse breath sounds auscultated bilaterally, breathing nonlabored. No wheezes crackles or rhonchi. HEART/CARDIOVASCULAR: Regular in rate and rhythm. S1 and S2 positive. ABDOMEN: Abdomen is soft, nontender. Patient has normal bowel sounds. SKIN: There is no rash. Warm and dry. NEURO: No focal motor deficit. Follows command. MUSCULOSKELETAL: No joint effusion or tenderness. EXTRIMITY: No edema, no cyanosis or clubbing. PSYCH: Cooperative. - Constitutional Vitals: Temp Pulse Resp BP Pulse Ox 98.9 F 92 H 16 184/109 100 10/22/16 11:35 10/22/16 13:25 10/22/16 13:25 10/22/16 11:35 10/22/16 13:28 Results - Labs CBC & Chem 7: 10/22/16 04:59 10/22/16 04:59 Labs: Laboratory Last Values WBC 25.8 K/mm3 (4.5-11.0) H 10/22/16 04:59 RBC 2.64 M/mm3 (3.65-5.03) L 10/22/16 04:59 Hgb 7.4 gm/dl (10.1-14.3) L 10/22/16 04:59 Hct 23.8 % (30.3-42.9) L 10/22/16 04:59 MCV 90 fl (79-97) 10/22/16 04:59 MCH 28 pg (28-32) 10/22/16 04:59 MCHC 31 % (30-34) 10/22/16 04:59 RDW 14.8 % (13.2-15.2) 10/22/16 04:59 Plt Count 395 K/mm3 (140-440) 10/22/16 04:59 Add Manual Diff Complete 10/22/16 04:59 Total Counted 100 10/22/16 04:59 Seg Neuts % (Manual) 79.0 % (40.0-70.0) H 10/22/16 04:59 Band Neutrophils % 6.0 % 10/22/16 04:59 Lymphocytes % (Manual) 6.0 % (13.4-35.0) L 10/22/16 04:59 Reactive Lymphs % (Man) 0 % 10/22/16 04:59 Monocytes % (Manual) 9.0 % (0.0-7.3) H 10/22/16 04:59 Eosinophils % (Manual) 0 % (0.0-4.3) 10/22/16 04:59 Basophils % (Manual) 0 % (0.0-1.8) 10/22/16 04:59 Metamyelocytes % 0 % 10/22/16 04:59 Myelocytes % 0 % 10/22/16 04:59 Promyelocytes % 0 % 10/22/16 04:59 Blast Cells % 0 % 10/22/16 04:59 Nucleated RBC % Not Reportable 10/22/16 04:59 Seg Neutrophils # Man 20.4 K/mm3 (1.8-7.7) H 10/22/16 04:59 Band Neutrophils # 1.5 K/mm3 10/22/16 04:59 Lymphocytes # (Manual) 1.5 K/mm3 (1.2-5.4) 10/22/16 04:59 Abs React Lymphs (Man) 0.0 K/mm3 10/22/16 04:59 Monocytes # (Manual) 2.3 K/mm3 (0.0-0.8) H 10/22/16 04:59 Eosinophils # (Manual) 0.0 K/mm3 (0.0-0.4) 10/22/16 04:59 Basophils # (Manual) 0.0 K/mm3 (0.0-0.1) 10/22/16 04:59 Metamyelocytes # 0.0 K/mm3 10/22/16 04:59 Myelocytes # 0.0 K/mm3 10/22/16 04:59 Promyelocytes # 0.0 K/mm3 10/22/16 04:59 Blast Cells # 0.0 K/mm3 10/22/16 04:59 WBC Morphology Not Reportable 10/22/16 04:59 Hypersegmented Neuts Not Reportable 10/22/16 04:59 Hyposegmented Neuts Not Reportable 10/22/16 04:59 Hypogranular Neuts Not Reportable 10/22/16 04:59 Smudge Cells Not Reportable 10/22/16 04:59 Toxic Granulation Not Reportable 10/22/16 04:59 Toxic Vacuolation Not Reportable 10/22/16 04:59 Dohle Bodies Not Reportable 10/22/16 04:59 Pelger-Huet Anomaly Not Reportable 10/22/16 04:59 Mariana Rods Not Reportable 10/22/16 04:59 Platelet Estimate Not Reportable 10/22/16 04:59 Clumped Platelets Not Reportable 10/22/16 04:59 Plt Clumps, EDTA Not Reportable 10/22/16 04:59 Large Platelets Not Reportable 10/22/16 04:59 Giant Platelets Not Reportable 10/22/16 04:59 Platelet Satelliting Not Reportable 10/22/16 04:59 Plt Morphology Comment Not Reportable 10/22/16 04:59 RBC Morphology Not Reportable 10/22/16 04:59 Dimorphic RBCs Not Reportable 10/22/16 04:59 Polychromasia Not Reportable 10/22/16 04:59 Hypochromasia Not Reportable 10/22/16 04:59 Poikilocytosis 1+ 10/22/16 04:59 Anisocytosis 1+ 10/22/16 04:59 Microcytosis Not Reportable 10/22/16 04:59 Macrocytosis Not Reportable 10/22/16 04:59 Spherocytes Not Reportable 10/22/16 04:59 Pappenheimer Bodies Not Reportable 10/22/16 04:59 Sickle Cells Not Reportable 10/22/16 04:59 Target Cells Not Reportable 10/22/16 04:59 Tear Drop Cells Not Reportable 10/22/16 04:59 Ovalocytes Not Reportable 10/22/16 04:59 Helmet Cells Not Reportable 10/22/16 04:59 Steen-[place] Bodies Not Reportable 10/22/16 04:59 [place] Rings Not Reportable 10/22/16 04:59 Radha Cells Not Reportable 10/22/16 04:59 Bite Cells Not Reportable 10/22/16 04:59 Crenated Cell Not Reportable 10/22/16 04:59 Elliptocytes Not Reportable 10/22/16 04:59 Acanthocytes (Spur) Not Reportable 10/22/16 04:59 Rouleaux Not Reportable 10/22/16 04:59 Hemoglobin C Crystals Not Reportable 10/22/16 04:59 Schistocytes Not Reportable 10/22/16 04:59 Malaria parasites Not Reportable 10/22/16 04:59 [place]akan Bodies Not Reportable 10/22/16 04:59 Hem Pathologist Commnt No 10/22/16 04:59 POC ABG pH 7.330 (7.35-7.45) L 10/22/16 12:24 POC ABG pCO2 21.8 (35-45) L 10/22/16 12:24 POC ABG pO2 48 (80-105) L 10/22/16 12:24 POC ABG HCO3 11.5 10/22/16 12:24 POC ABG Total CO2 12 10/22/16 12:24 POC ABG O2 Sat 82 10/22/16 12:24 POC ABG Base Excess -14 10/22/16 12:24 FiO2 21 % 10/22/16 12:24 Sodium 145 mmol/L (137-145) 10/22/16 04:59 Potassium 2.9 mmol/L (3.6-5.0) L* 10/22/16 04:59 Chloride 116.3 mmol/L (98-107) H 10/22/16 04:59 Carbon Dioxide 12 mmol/L (22-30) L 10/22/16 04:59 Anion Gap 20 mmol/L 10/22/16 04:59 BUN 35 mg/dL (7-17) H 10/22/16 04:59 Creatinine 1.3 mg/dL (0.7-1.2) H 10/22/16 04:59 Estimated GFR 51 ml/min 10/22/16 04:59 BUN/Creatinine Ratio 26.92 % 10/22/16 04:59 Glucose 100 mg/dL (65-100) 10/22/16 04:59 Lactic Acid 2.6 mmol/L (0.7-2.0) H* 10/22/16 10:39 Calcium 7.3 mg/dL (8.4-10.2) L 10/22/16 04:59 Magnesium 1.0 mg/dL (1.7-2.3) L 10/22/16 10:39 Total Bilirubin 0.5 mg/dL (0.1-1.2) 10/21/16 04:59 Direct Bilirubin 0.4 mg/dL (0-0.2) H 10/19/16 20:51 Indirect Bilirubin 0.5 mg/dL 10/19/16 20:51 AST 21 units/L (5-40) 10/21/16 04:59 ALT 7 units/L (7-56) 10/21/16 04:59 Alkaline Phosphatase 85 units/L (35-129) 10/21/16 04:59 Ammonia 68.0 umol/L (25-60) H 10/20/16 01:28 NT-Pro-B Natriuret Pep 965.1 pg/mL (0-900) H 10/19/16 20:51 Total Protein 6.6 g/dL (6.3-8.2) D 10/21/16 04:59 Albumin 2.4 g/dL (3.9-5) L 10/21/16 04:59 Albumin/Globulin Ratio 0.6 % 10/21/16 04:59 Lipase 37 units/L (13-60) 10/19/16 20:51 Urine Color Yellow (Yellow) 10/20/16 01:18 Urine Turbidity Clear (Clear) 10/20/16 01:18 Urine pH 5.0 (5.0-7.0) 10/20/16 01:18 Ur Specific [place] 1.017 (1.003-1.030) 10/20/16 01:18 Urine Protein 30 mg/dl mg/dL (Negative) 10/20/16 01:18 Urine Glucose (UA) Neg mg/dL (Negative) 10/20/16 01:18 Urine Ketones Neg mg/dL (Negative) 10/20/16 01:18 Urine Blood Neg (Negative) 10/20/16 01:18 Urine Nitrite Neg (Negative) 10/20/16 01:18 Urine Bilirubin Neg (Negative) 10/20/16 01:18 Urine Urobilinogen < 2.0 mg/dL (<2.0) 10/20/16 01:18 Ur Leukocyte Esterase Neg (Negative) 10/20/16 01:18 Urine WBC (Auto) < 1.0 /HPF (0.0-6.0) 10/20/16 01:18 Urine RBC (Auto) 4.0 /HPF (0.0-6.0) 10/20/16 01:18 U Epithel Cells (Auto) 1.0 /HPF (0-13.0) 10/20/16 01:18 Amorphous Crystals 2+ 10/20/16 01:18 Hyaline Casts 3 /LPF 10/20/16 01:18 Granular Casts 5 /LPF 10/20/16 01:18 Urine Mucus Few /HPF 10/20/16 01:18 Urine Osmolality 462 Mosm/kg 10/21/16 07:50 Urine Creatinine 105.8 mg/dL (0.1-20.0) H 10/21/16 07:50 Protein/Creatinin Ratio 0.46 10/21/16 07:50 Urine Sodium 19 mEq/L 10/21/16 07:50 Urine Chloride 39.4 mEq/L (110-250) L 10/21/16 07:50 Urine Total Protein 48 mg/dL (5-11.8) H 10/21/16 07:50 Hepatitis A IgM Ab Non-reactive (NonReactive) 10/20/16 21:48 Hep Bs Antigen Non-reactive (Negative) 10/20/16 21:48 Hep B Core IgM Ab Non-reactive (NonReactive) 10/20/16 21:48 Hepatitis C Antibody Reactive (NonReactive) 10/20/16 21:48 - Imaging and Cardiology Chest x-ray: report reviewed US - abdomen: report reviewed
[2016-10-22 17:25] LABS: Iron 19 ug/dL (37-170); Total Iron Binding Capacity 119 mcg/dL (250-450)
[2016-10-22] MEDS ORDERED: MAGNESIUM SULFATE IV ONE (20:54)
[2016-10-22] MEDS ORDERED: HALDOL IV PRN (20:59)
[2016-10-22] MEDS ORDERED: ATIVAN IV PRN ×2 (20:59)
[2016-10-22] MEDS ORDERED: MAGNESIUM SULFATE 1 GM in NACL 0.9% 50 ML IV ONE (22:30)
[2016-10-23] MEDS: CEPHULAC PO SCH ×4 (00:01→17:01)
[2016-10-23 05:39] LABS: Hematocrit 25.6 % (30.3-42.9); Hemoglobin 8.4 gm/dl (10.1-14.3); Mean Corpuscular HGB Conc 33 % (30-34); Mean Corpuscular Hemoglobin 28 pg (28-32); Platelet Count 457 K/mm3 (140-440); Red Blood Count 2.95 M/mm3 (3.65-5.03); Red Cell Distribution Width 14.5 % (13.2-15.2)
[2016-10-23 05:54] LABS: Blood Urea Nitrogen 21 mg/dL (7-17); Calcium 7.2 mg/dL (8.4-10.2); Carbon Dioxide 22 mmol/L (22-30); Chloride 100.6 mmol/L (98-107); Glucose 122 mg/dL (65-100); Sodium 138 mmol/L (137-145)
[2016-10-23 05:59] LABS: Anion Gap 18 mmol/L; Potassium 2.9 mmol/L (3.6-5.0)
[2016-10-23 06:07] LABS: Mean Corpuscular Volume 88 fl (79-97); White Blood Count 25.2 K/mm3 (4.5-11.0)
[2016-10-23] MEDS ORDERED: K-DUR PO ONE ×2 (06:30→08:00)
[2016-10-23] MEDS: DUONEB 0.5 MG-3 MG/3 ML SOLN IH SCH ×3 (08:05→20:04)
[2016-10-23 08:50] LABS: Anisocytosis 1+; Blastocytes % (Manual) 0 %
[2016-10-23 08:51] LABS: Diff Status Complete; Poikilocytosis Few
[2016-10-23] MEDS: SODIUM BICARBONATE PO SCH ×3 (09:10→21:00)
[2016-10-23] MEDS: PROTONIX PO SCH (09:10)
[2016-10-23] MEDS: MORPHINE IV PRN ×2 (09:11→21:52)
[2016-10-23] MEDS: ROCEPHIN/NS 1 GM/50 ML 1 GM/50 ML BAG IV SCH (09:11)
[2016-10-23] MEDS: ZOLOFT PO SCH (09:11)
[2016-10-23] MEDS: SODIUM BICARBONATE 150 MEQ in D5W 1,000 ML IV SCH (09:12)
--- NOTE | 2016-10-23 11:22 | Gastroenterology Progress Note ---
Assessment and Plan (1) Cirrhosis : ? cirrhosis,unclear if the patient has definite cirrhosis. U/S not c/w cirrhotic picture, Platelets are not decreased. No focal hepatic lesions or ascites on u/s. Stable GI isabel. AST/ALT WNL. OK to send home when renal ftn stabilizes. She does not have HRS. Patient has been followed at [facility] and will need to follow up at discharge with [facility]- D/W pateint regarding follow up. (2) Hepatitis C (3) Leukocytosis -unclear etiology, per primary. Subjective Date of service: 10/23/16 Principal diagnosis: Cirrhosis Interval history: No acute changes overnight. Objective - Constitutional Vitals: Temp Pulse Resp BP Pulse Ox 97.4 F L 103 H 18 97/74 98 10/23/16 08:00 10/23/16 08:15 10/23/16 08:15 10/23/16 08:00 10/23/16 08:05 General appearance: no acute distress - EENT Eyes: EOM intact ENT: hearing intact - Neck Neck: supple - Respiratory Respiratory: bilateral: CTA - Cardiovascular Rhythm: regular Heart Sounds: Present: S1 & S2 - Gastrointestinal General gastrointestinal: Present: soft, non-tender, normal bowel sounds - Neurologic Neurological: alert and oriented x3 - Labs CBC & Chem 7: 10/23/16 05:18 10/23/16 05:18 Labs: Laboratory Results - last 24 hr 10/21/16 10/22/16 10/22/16 07:50 10:39 12:09 WBC RBC Hgb Hct MCV MCH MCHC RDW Plt Count Add Manual Diff Total Counted Seg Neuts % (Manual) Band Neutrophils % Lymphocytes % (Manual) Reactive Lymphs % (Man) Monocytes % (Manual) Metamyelocytes % Myelocytes % Promyelocytes % Blast Cells % Nucleated RBC % Seg Neutrophils # Man Band Neutrophils # Lymphocytes # (Manual) Abs React Lymphs (Man) Monocytes # (Manual) Eosinophils # (Manual) Basophils # (Manual) Metamyelocytes # Myelocytes # Promyelocytes # Blast Cells # WBC Morphology Hypersegmented Neuts Hyposegmented Neuts Hypogranular Neuts Smudge Cells Toxic Granulation Toxic Vacuolation Dohle Bodies Pelger-Huet Anomaly Mar[place] Rods Platelet Estimate Clumped Platelets Plt Clumps, EDTA Large Platelets Giant Platelets Platelet Satelliting Plt Morphology Comment RBC Morphology Dimorphic RBCs Polychromasia Hypochromasia Poikilocytosis Anisocytosis Microcytosis Macrocytosis Spherocytes Pappenheimer Bodies Sickle Cells Target Cells Tear Drop Cells Ovalocytes Helmet Cells Steen-[place] Bodies Ruth Rings Radha Cells Bite Cells Crenated Cell Elliptocytes Acanthocytes (Spur) Rouleaux Hemoglobin C Crystals Schistocytes Malaria parasites [place] Bodies Hem Pathologist Commnt POC ABG pH 7.294 L POC ABG pCO2 24.1 L POC ABG pO2 36 L POC ABG HCO3 11.7 POC ABG Total CO2 12 POC ABG O2 Sat 65 POC ABG Base Excess -15 FiO2 21 Sodium Potassium Chloride Carbon Dioxide Anion Gap BUN Creatinine Estimated GFR BUN/Creatinine Ratio Glucose Lactic Acid 2.6 H* Calcium Magnesium Iron TIBC Ferritin Ammonia Vitamin B12 Protein/Creatinin Ratio 0.46 Urine Total Protein 48 H 10/22/16 10/22/16 10/22/16 12:24 16:37 16:37 WBC RBC Hgb Hct MCV MCH MCHC RDW Plt Count Add Manual Diff Total Counted Seg Neuts % (Manual) Band Neutrophils % Lymphocytes % (Manual) Reactive Lymphs % (Man) Monocytes % (Manual) Metamyelocytes % Myelocytes % Promyelocytes % Blast Cells % Nucleated RBC % Seg Neutrophils # Man Band Neutrophils # Lymphocytes # (Manual) Abs React Lymphs (Man) Monocytes # (Manual) Eosinophils # (Manual) Basophils # (Manual) Metamyelocytes # Myelocytes # Promyelocytes # Blast Cells # WBC Morphology Hypersegmented Neuts Hyposegmented Neuts Hypogranular Neuts Smudge Cells Toxic Granulation Toxic Vacuolation Dohle Bodies Pelger-Huet Anomaly Mariana Rods Platelet Estimate Clumped Platelets Plt Clumps, EDTA Large Platelets Giant Platelets Platelet Satelliting Plt Morphology Comment RBC Morphology Dimorphic RBCs Polychromasia Hypochromasia Poikilocytosis Anisocytosis Microcytosis Macrocytosis Spherocytes Pappenheimer Bodies Sickle Cells Target Cells Tear Drop Cells Ovalocytes Helmet Cells Ste[place] Bodies Ruth Rings Radha Cells Bite Cells Crenated Cell Elliptocytes Acanthocytes (Spur) Rouleaux Hemoglobin C Crystals Schistocytes Malaria parasites [place] Bodies Hem Pathologist Commnt POC ABG pH 7.330 L POC ABG pCO2 21.8 L POC ABG pO2 48 L POC ABG HCO3 11.5 POC ABG Total CO2 12 POC ABG O2 Sat 82 POC ABG Base Excess -14 FiO2 21 Sodium Potassium Chloride Carbon Dioxide Anion Gap BUN Creatinine Estimated GFR BUN/Creatinine Ratio Glucose Lactic Acid Calcium Magnesium Iron 19 L TIBC 119 L Ferritin 664.4 H Ammonia Vitamin B12 Protein/Creatinin Ratio Urine Total Protein 10/22/16 10/22/16 10/23/16 16:37 21:10 05:18 WBC 25.2 H RBC 2.95 L Hgb 8.4 L Hct 25.6 L MCV 88 MCH 28 MCHC 33 RDW 14.5 Plt Count 457 H Add Manual Diff Complete Total Counted 100 Seg Neuts % (Manual) 76.0 H Band Neutrophils % 3.0 Lymphocytes % (Manual) 15.0 Reactive Lymphs % (Man) 0 Monocytes % (Manual) 6.0 Metamyelocytes % 0 Myelocytes % 0 Promyelocytes % 0 Blast Cells % 0 Nucleated RBC % Not Reportable Seg Neutrophils # Man 19.2 H Band Neutrophils # 0.8 Lymphocytes # (Manual) 3.8 Abs React Lymphs (Man) 0.0 Monocytes # (Manual) 1.5 H Eosinophils # (Manual) 0.0 Basophils # (Manual) 0.0 Metamyelocytes # 0.0 Myelocytes # 0.0 Promyelocytes # 0.0 Blast Cells # 0.0 WBC Morphology Not Reportable Hypersegmented Neuts Not Reportable Hyposegmented Neuts Not Reportable Hypogranular Neuts Not Reportable Smudge Cells Not Reportable Toxic Granulation Not Reportable Toxic Vacuolation Not Reportable Dohle Bodies Not Reportable Pelger-Huet Anomaly Not Reportable Mariana Rods Not Reportable Platelet Estimate Not Reportable Clumped Platelets Not Reportable Plt Clumps, EDTA Not Reportable Large Platelets Not Reportable Giant Platelets Not Reportable Platelet Satelliting Not Reportable Plt Morphology Comment Not Reportable RBC Morphology Not Reportable Dimorphic RBCs Not Reportable Polychromasia Not Reportable Hypochromasia Not Reportable Poikilocytosis Few Anisocytosis 1+ Microcytosis Not Reportable Macrocytosis Not Reportable Spherocytes Not Reportable Pappenheimer Bodies Not Reportable Sickle Cells Not Reportable Target Cells Not Reportable Tear Drop Cells Not Reportable Ovalocytes Not Reportable Helmet Cells Not Reportable Ste[place] Bodies Not Reportable [place] Rings Not Reportable Radha Cells Not Reportable Bite Cells Not Reportable Crenated Cell Not Reportable Elliptocytes Not Reportable Acanthocytes (Spur) Not Reportable Rouleaux Not Reportable Hemoglobin C Crystals Not Reportable Schistocytes Not Reportable Malaria parasites Not Reportable [place] Bodies Not Reportable Hem Pathologist Commnt No POC ABG pH POC ABG pCO2 POC ABG pO2 POC ABG HCO3 POC ABG Total CO2 POC ABG O2 Sat POC ABG Base Excess FiO2 Sodium Potassium Chloride Carbon Dioxide Anion Gap BUN Creatinine Estimated GFR BUN/Creatinine Ratio Glucose Lactic Acid Calcium Magnesium Iron TIBC Ferritin Ammonia 46.0 Vitamin B12 941.5 H Protein/Creatinin Ratio Urine Total Protein 10/23/16 05:18 WBC RBC Hgb Hct MCV MCH MCHC RDW Plt Count Add Manual Diff Total Counted Seg Neuts % (Manual) Band Neutrophils % Lymphocytes % (Manual) Reactive Lymphs % (Man) Monocytes % (Manual) Metamyelocytes % Myelocytes % Promyelocytes % Blast Cells % Nucleated RBC % Seg Neutrophils # Man Band Neutrophils # Lymphocytes # (Manual) Abs React Lymphs (Man) Monocytes # (Manual) Eosinophils # (Manual) Basophils # (Manual) Metamyelocytes # Myelocytes # Promyelocytes # Blast Cells # WBC Morphology Hypersegmented Neuts Hyposegmented Neuts Hypogranular Neuts Smudge Cells Toxic Granulation Toxic Vacuolation Dohle Bodies Pelger-Huet Anomaly [place] Rods Platelet Estimate Clumped Platelets Plt Clumps, EDTA Large Platelets Giant Platelets Platelet Satelliting Plt Morphology Comment RBC Morphology Dimorphic RBCs Polychromasia Hypochromasia Poikilocytosis Anisocytosis Microcytosis Macrocytosis Spherocytes Pappenheimer Bodies Sickle Cells Target Cells Tear Drop Cells Ovalocytes Helmet Cells Steen-[place] Bodies Ruth Rings Radha Cells Bite Cells Crenated Cell Elliptocytes Acanthocytes (Spur) Rouleaux Hemoglobin C Crystals Schistocytes Malaria parasites [place] Bodies Hem Pathologist Commnt POC ABG pH POC ABG pCO2 POC ABG pO2 POC ABG HCO3 POC ABG Total CO2 POC ABG O2 Sat POC ABG Base Excess FiO2 Sodium 138 Potassium 2.9 L* Chloride 100.6 Carbon Dioxide 22 D Anion Gap 18 BUN 21 H Creatinine 1.0 Estimated GFR > 60 BUN/Creatinine Ratio 21.00 Glucose 122 H Lactic Acid Calcium 7.2 L Magnesium 1.0 L Iron TIBC Ferritin Ammonia Vitamin B12 Protein/Creatinin Ratio Urine Total Protein
--- NOTE | 2016-10-23 13:26 | Progress Note ---
Assessment and Plan 1. NAI likely 2/2 prerenal azotemia 2. Uremic symptoms 3. Hepatitis C infection-untreated 4. Liver cirrhosis 5. Hypovomeic hyponatremia 6. Hypokalemia 7. AG metabolic acidosis 2/2 likley uremia 8. Anemia, unspecified cause likely multifactorial including CKD 9. Leukocytosis Plan: -BUN/CR back doen to normal from a peak of 103/5.4 on admission - UA + for protein suggesting Underlying CKD. No baseline CR available Renal U/S reviewed. No hydronephrosis seen. She has well preserved cortex. -D/c IVF -D/c Luu catheter -Hyponatremia resolved -Potassium level remained very low. Replete potassium IV/PO.Check magnesium level Subjective Date of service: 10/23/16 Principal diagnosis: Cirrhosis Interval history: Feels better. No N/V/ SOB improved. Objective - Vital Signs Vital signs: Vital Signs - 12hr 10/23/16 10/23/16 10/23/16 01:29 02:51 04:00 Temperature 98.4 F Pulse Rate 100 H Pulse Rate [ Anterior Bilateral Throughout] Pulse Rate [ 88 Left Radial] Pulse Rate [ 101 H Radial] Respiratory 22 20 Rate Respiratory Rate [Anterior Bilateral Throughout] Blood Pressure 147/101 Blood Pressure 130/92 [Left Arm] O2 Sat by Pulse 100 Oximetry 10/23/16 10/23/16 10/23/16 08:00 08:05 08:15 Temperature 97.4 F L Pulse Rate Pulse Rate [ 85 103 H Anterior Bilateral Throughout] Pulse Rate [ 98 H Left Radial] Pulse Rate [ Radial] Respiratory 20 Rate Respiratory 18 18 Rate [Anterior Bilateral Throughout] Blood Pressure Blood Pressure 97/74 [Left Arm] O2 Sat by Pulse 96 98 Oximetry 10/23/16 11:00 Temperature 98 F Pulse Rate Pulse Rate [ Anterior Bilateral Throughout] Pulse Rate [ 90 Left Radial] Pulse Rate [ Radial] Respiratory 16 Rate Respiratory Rate [Anterior Bilateral Throughout] Blood Pressure Blood Pressure 111/82 [Left Arm] O2 Sat by Pulse Oximetry - General Appearance General appearance: well-developed, well-nourished, appears stated age, frail EENT: PERRL, mucous membranes moist Neck: no JVD, no thyromegaly, no carotid bruit, supple Respiratory: Present: Clear to Ascultation Cardiology: regular, normal heart rate, S1S2, no murmurs Gastrointestinal: normoactive bowel sounds, no tenderness Integumentary: no rash, warm and dry Neurologic: no focal deficit, alert and oriented x3, reflexes 2+ and symmetric, gait normal, strength 5/5 Musculoskeletal: no deformities, no erythema, no cyanosis, no clubbing Psychiatric: mood/affect appropriate, cooperative - Lab 10/23/16 05:18 10/23/16 05:18 Most recent lab results Calcium 7.2 mg/dL (8.4-10.2) L 10/23/16 05:18 Magnesium 1.0 mg/dL (1.7-2.3) L 10/23/16 05:18 Urine Creatinine 105.8 mg/dL (0.1-20.0) H 10/21/16 07:50 Urine Sodium 19 mEq/L 10/21/16 07:50 Urine Total Protein 48 mg/dL (5-11.8) H 10/21/16 07:50
[2016-10-23 16:36] LABS: Myeloperoxidase Antibody <1.0 AI (<1.0)
--- NOTE | 2016-10-23 16:37 | Consultation ---
History of Present Illness - Reason for Consult Consult date: 10/23/16 leukocytosis Requesting physician: SCOTTIE BRADLEY - History of Present Illness Patient is a 56-year-old woman with a history of major depressive disorder, hepatitis C with cirrhosis and pancreatitis who presents with worsening constant fatigue x 2 weeks history of productive cough, body aches runny nose decrease appetite nausea without vomiting and abdominal discomfort. There is no aggravating or relieving factors. Chest x-ray showed no infilterates. Patient has been treated with ceftriaxone but continues to have leukocytosis hence infectious disease consult. Patient seen at bedside. She could not provide further history. PHYSICAL EXAM VS - Afebrile chest - good air entry cvs - s1s2 abd - bs + LABS - Reviewed. See lab section ASSESSMENT 1. Leukocytosis 2. hepatitis c 3. hypokalemia 4. acute kidney failure. RECOMMENDATION 1.CT CHEST AND ABDOMEN/PELVIS 2. ESR/CRP. 3. REPEAT BCX2 Past History Past Medical History: other (hepatitis C, liver cirrhosis, kidney disease ) Past Surgical History: No surgical history Social history: denies: smoking, alcohol abuse, IV drug use Family history: other (No FH Kidney disease ) Medications and Allergies Allergies Allergy/AdvReac Type Severity Reaction Status Date / Time No Known Allergies Allergy Unverified 10/19/16 20:26 Home Medications Medication Instructions Recorded Confirmed Last Taken Type SEROquel 100 mg PO DAILY 10/19/16 10/19/16 Unknown History Seroquel 200 mg PO HS 10/19/16 10/19/16 Unknown History Zoloft 50 mg PO DAILY 10/19/16 10/19/16 Unknown History Active Meds: Active Medications Acetaminophen (Tylenol) 325 mg PO Q6H PRN PRN Reason: Pain, Mild (1-3) Last Admin: 10/21/16 09:45 Dose: 325 mg Albuterol (Proventil) 2.5 mg IH Q4HRT PRN PRN Reason: Shortness Of Breath Albuterol/Ipratropium (Duoneb 0.5 Mg-3 Mg/3 Ml Soln) 1 ampul IH TIDRT AMELIA Last Admin: 10/23/16 13:50 Dose: 1 ampul Haloperidol Lactate (Haldol) 5 mg IV Q1HR PRN PRN Reason: Unrespon. to mult. doses BZD's Ceftriaxone Sodium (Rocephin/Ns 1 Gm/50 Ml) 1 gm in 50 mls @ 100 mls/hr IV Q24HR AMELIA PRN Reason: Protocol Last Admin: 10/23/16 09:11 Dose: 100 mls/hr Labetalol HCl (Normodyne) 10 mg IV PRN PRN PRN Reason: Hypertension Last Admin: 10/23/16 01:29 Dose: 10 mg Lactulose (Cephulac) 20 gm PO Q6HR [facility] [place] Last Admin: 10/23/16 13:22 Dose: Not Given Lorazepam (Ativan) 2 mg IV Q1HR PRN PRN Reason: CIWA-Ar 8-15 Lorazepam (Ativan) 4 mg IV Q1HR PRN PRN Reason: CIWA-Ar 16-25 Lorazepam (Ativan) 4 mg IV Q15MIN PRN PRN Reason: CIWA-Ar >25 Morphine Sulfate (Morphine) 1 mg IV Q4H PRN PRN Reason: Pain, Moderate (4-6) Last Admin: 10/23/16 09:11 Dose: 1 mg Ondansetron HCl (Zofran) 4 mg IV Q4H PRN PRN Reason: Nausea And Vomiting Pantoprazole Sodium (Protonix) 40 mg PO DAILY [facility] [place] Last Admin: 10/23/16 09:10 Dose: 40 mg Quetiapine Fumarate (Seroquel) 100 mg PO DAILY [facility] [place] Last Admin: 10/23/16 09:10 Dose: 100 mg Quetiapine Fumarate (Seroquel) 200 mg PO HS [facility] [place] Last Admin: 10/22/16 21:24 Dose: 200 mg Sertraline HCl (Zoloft) 50 mg PO DAILY [facility] [place] Last Admin: 10/23/16 09:11 Dose: 50 mg Sodium Bicarbonate (Sodium Bicarbonate) 650 mg PO TID [facility] [place] Last Admin: 10/23/16 09:10 Dose: 650 mg Physical Examination - Constitutional Vitals: Vital Signs Temp Pulse Resp BP Pulse Ox 98 F 93 H 18 111/82 98 10/23/16 11:00 10/23/16 14:00 10/23/16 14:00 10/23/16 11:00 10/23/16 08:05 Temperature -Last 24 Hours Temperature 98 F Temperature 97.4 F Temperature 98.4 F Temperature 98.6 F Temperature 97.9 F Results - Labs CBC & Chem 7: 10/23/16 05:18 10/23/16 05:18 Labs: Abnormal lab results 10/22/16 10/22/16 10/22/16 Range/Units 16:37 16:37 16:37 WBC (4.5-11.0) K/mm3 RBC (3.65-5.03) M/mm3 Hgb (10.1-14.3) gm/dl Hct (30.3-42.9) % Plt Count (140-440) K/mm3 Seg Neuts % (Manual) (40.0-70.0) % Seg Neutrophils # Man (1.8-7.7) K/mm3 Monocytes # (Manual) (0.0-0.8) K/mm3 Potassium (3.6-5.0) mmol/L BUN (7-17) mg/dL Glucose (65-100) mg/dL Calcium (8.4-10.2) mg/dL Magnesium (1.7-2.3) mg/dL Iron 19 L (37-170) ug/dL TIBC 119 L (250-450) mcg/dL Ferritin 664.4 H (13.0-400.0) ng/mL Vitamin B12 941.5 H (211-911) pg/mL 10/23/16 10/23/16 Range/Units 05:18 05:18 WBC 25.2 H (4.5-11.0) K/mm3 RBC 2.95 L (3.65-5.03) M/mm3 Hgb 8.4 L (10.1-14.3) gm/dl Hct 25.6 L (30.3-42.9) % Plt Count 457 H (140-440) K/mm3 Seg Neuts % (Manual) 76.0 H (40.0-70.0) % Seg Neutrophils # Man 19.2 H (1.8-7.7) K/mm3 Monocytes # (Manual) 1.5 H (0.0-0.8) K/mm3 Potassium 2.9 L* (3.6-5.0) mmol/L BUN 21 H (7-17) mg/dL Glucose 122 H (65-100) mg/dL Calcium 7.2 L (8.4-10.2) mg/dL Magnesium 1.0 L (1.7-2.3) mg/dL Iron (37-170) ug/dL TIBC (250-450) mcg/dL Ferritin (13.0-400.0) ng/mL Vitamin B12 (211-911) pg/mL
--- NOTE | 2016-10-23 20:58 | Cat Scan Report ---
FINAL REPORT EXAM: CT CHEST WO CON HISTORY: leukocytosis TECHNIQUE: CT imaging obtained through the chest without contrast. Transaxial, Coronal and sagittal reformats are provided. PRIORS: None. FINDINGS: Coronary artery disease. Mediastinum is otherwise within normal limits for noncontrast technique. Thoracic aorta is normal in course and caliber. Bilateral pleural effusions are small with associated compressive atelectasis. Diffuse patchy areas of subpleural sub-solid nodularity and airspace disease. Lower lung predominant tree-in-bud nodularity is suggested. Centrilobular emphysema. Additional small cystic lung disease is present in the perihilar regions of the upper lungs best demonstrated on axial series 3, image 52. Please see CT abdomen and pelvis of the same date. The superficial soft tissues are remarkable for asymmetric skin thickening within the left breast. There is left upper chest subcutaneous emphysema. No acute bony abnormality or worrisome osseous lesions identified. IMPRESSION: Patchy nodularity throughout the lungs is suggestive of atypical infectious or inflammatory etiology. There is suggested upper lung predominant perihilar cystic disease. Lipoid pneumonia, lymphocytic interstitial pneumonitis and sequela of smoking are all differential considerations. Pneumocystis pneumonia could also appear similar. Correlation with history and immune status is requested. Pulmonology consultation is recommended. Centrilobular emphysema. Asymmetric skin thickening within the left breast. Correlation with mammography is requested. Subcutaneous emphysema in the left upper chest wall is likely secondary to vascular access attempt.
--- NOTE | 2016-10-23 21:33 | Cat Scan Report ---
FINAL REPORT EXAM: CT ABDOMEN PELVIS WO CON HISTORY: leukocytosis TECHNIQUE: Standard unenhanced CT of the abdomen and pelvis. Coronal and sagittal reconstruction was also performed. Contrast: 450 cc Readi-Cat given as oral. PRIORS: None. FINDINGS: There is mild generalized wall thickening of the distal duodenum and proximal jejunum without surrounding inflammatory change. Findings can be seen with mild duodenitis/jejunitis or viral enteritis. Given the length of segment involve, small-bowel lymphoma is felt to be unlikely. Within the abdomen, the liver, spleen, pancreas, gallbladder, adrenal glands, and kidneys are unremarkable. No evidence for retroperitoneal or pelvic lymphadenopathy is seen. The small bowel loops have normal caliber. No fluid collection, inflammatory change, or free air is seen within the abdomen or pelvis. The appendix is normal. A few diverticuli are seen in the descending colon without active diverticulitis. Within the pelvis, the bladder is unremarkable. The uterus is normal. No evidence for mass or lymphadenopathy is seen in the pelvis. Images through the upper abdomen include the lung bases which demonstrates bibasilar consolidation posteriorly. Centrilobular emphysema is noted. Patchy alveolar airspace disease is noted in each lung base. Bony structures show no focal abnormalities and are intact. IMPRESSION: 1. mild concentric wall thickening of the distal duodenum and proximal jejunum. These findings are most likely associated with viral enteritis or jejunitis/duodenitis. 2. Mild diverticulosis
[2016-10-23] MEDS: ATIVAN IV PRN (21:52)
--- NOTE | 2016-10-23 22:14 | Progress Note ---
Assessment and Plan Assessment and plan: Assessment and plan: 56-year-old woman with hepatitis C with cirrhosis and pancreatitis, major depressive disorder, presenting with worsening fatigue, body aches, decrease appetite, nausea without vomiting and abdominal discomfort, found to have acute renal failure 1. Acute renal failure Likely due to ATN versus vasomotor nephropathy Renal ultrasound showing medical disease Renal function significantly improved with IV fluids Avoiding nephrotoxins and medications renally dosed Nephrology following 2. Metabolic acidosis Due to renal failure On bicarbonate drip Nephrology following 3. Electrolyte abnormalities Hyponatremia - NaHCO3; improving Hypokalemia - replete and recheck Hypomagnesemia - replete and recheck 4. Acute respiratory failure Likely secondary to fluid overload secondary to renal failure/hypoalbuminemia/ IV hydration Chest x-ray clear, VQ scan with low probability for PE, CT chest pending Improving On supplemental oxygen as needed 5. Upper respiratory infection Symptomatic treatment 6. SIRS Started on Rocephin empirically ID consulted Workup negative to date 7. Acute toxic metabolic encephalopathy Multifactorial - uemia/hyperammonemia/electrolytes abnormalities/? infection Treat underlying condition 8. Hyperammonemia Treated with lactulose, resolved 9. Hepatitis C/cirrhosis Per GI unclear if she has definitive cirrhosis (labs/imaging tests not consistent with cirrhosis) Followed at [place] 10. Alcohol abuse Placed on CIWA protocol 11. Normocytic anemia Likely secondary to combination of anemia of chronic disease and iron efficiency ; stool occult blood negative B12 and folate within normal limits Even though stool occult blood negative, she may benefit from outpatient GI evaluation with possible EGD/colonoscopy given her status and age 12. Malnutrition Diet supplementation per lead javascript engineer 13. DVT/GI prophylaxis History Interval history: no specific complaints Hospitalist Physical - Constitutional Vitals: Temp Pulse Resp BP Pulse Ox 98 F 87 20 107/70 98 10/23/16 15:00 10/23/16 20:00 10/23/16 20:00 10/23/16 15:00 10/23/16 08:05 General appearance: Present: no acute distress - EENT Eyes: Present: PERRL, EOM intact. Absent: scleral icterus, conjunctival injection - Neck Neck: Present: supple, normal ROM. Absent: masses or JVD - Respiratory Respiratory effort: normal Respiratory: bilateral: CTA, negative: rales, rhonchi, wheezing - Cardiovascular Rhythm: regular Heart Sounds: Present: S1 & S2. Absent: systolic murmur - Extremities Extremities: no ischemia - Abdominal General gastrointestinal: soft, non-tender, non-distended, normal bowel sounds - Psychiatric Psychiatric: cooperative - Neurologic Neurologic: CNII-XII intact, no focal deficits Results - Labs CBC & Chem 7: 10/26/16 06:40 10/25/16 05:18 Labs: Laboratory Last Values WBC 25.2 K/mm3 (4.5-11.0) H 10/23/16 05:18 RBC 2.95 M/mm3 (3.65-5.03) L 10/23/16 05:18 Hgb 8.4 gm/dl (10.1-14.3) L 10/23/16 05:18 Hct 25.6 % (30.3-42.9) L 10/23/16 05:18 MCV 88 fl (79-97) 10/23/16 05:18 MCH 28 pg (28-32) 10/23/16 05:18 MCHC 33 % (30-34) 10/23/16 05:18 RDW 14.5 % (13.2-15.2) 10/23/16 05:18 Plt Count 457 K/mm3 (140-440) H 10/23/16 05:18 Add Manual Diff Complete 10/23/16 05:18 Total Counted 100 10/23/16 05:18 Seg Neuts % (Manual) 76.0 % (40.0-70.0) H 10/23/16 05:18 Band Neutrophils % 3.0 % 10/23/16 05:18 Lymphocytes % (Manual) 15.0 % (13.4-35.0) 10/23/16 05:18 Reactive Lymphs % (Man) 0 % 10/23/16 05:18 Monocytes % (Manual) 6.0 % (0.0-7.3) 10/23/16 05:18 Eosinophils % (Manual) 0 % (0.0-4.3) 10/22/16 04:59 Basophils % (Manual) 0 % (0.0-1.8) 10/22/16 04:59 Metamyelocytes % 0 % 10/23/16 05:18 Myelocytes % 0 % 10/23/16 05:18 Promyelocytes % 0 % 10/23/16 05:18 Blast Cells % 0 % 10/23/16 05:18 Nucleated RBC % Not Reportable 10/23/16 05:18 Seg Neutrophils # Man 19.2 K/mm3 (1.8-7.7) H 10/23/16 05:18 Band Neutrophils # 0.8 K/mm3 10/23/16 05:18 Lymphocytes # (Manual) 3.8 K/mm3 (1.2-5.4) 10/23/16 05:18 Abs React Lymphs (Man) 0.0 K/mm3 10/23/16 05:18 Monocytes # (Manual) 1.5 K/mm3 (0.0-0.8) H 10/23/16 05:18 Eosinophils # (Manual) 0.0 K/mm3 (0.0-0.4) 10/23/16 05:18 Basophils # (Manual) 0.0 K/mm3 (0.0-0.1) 10/23/16 05:18 Metamyelocytes # 0.0 K/mm3 10/23/16 05:18 Myelocytes # 0.0 K/mm3 10/23/16 05:18 Promyelocytes # 0.0 K/mm3 10/23/16 05:18 Blast Cells # 0.0 K/mm3 10/23/16 05:18 WBC Morphology Not Reportable 10/23/16 05:18 Hypersegmented Neuts Not Reportable 10/23/16 05:18 Hyposegmented Neuts Not Reportable 10/23/16 05:18 Hypogranular Neuts Not Reportable 10/23/16 05:18 Smudge Cells Not Reportable 10/23/16 05:18 Toxic Granulation Not Reportable 10/23/16 05:18 Toxic Vacuolation Not Reportable 10/23/16 05:18 Dohle Bodies Not Reportable 10/23/16 05:18 Pelger-Huet Anomaly Not Reportable 10/23/16 05:18 Mariana Rods Not Reportable 10/23/16 05:18 Platelet Estimate Not Reportable 10/23/16 05:18 Clumped Platelets Not Reportable 10/23/16 05:18 Plt Clumps, EDTA Not Reportable 10/23/16 05:18 Large Platelets Not Reportable 10/23/16 05:18 Giant Platelets Not Reportable 10/23/16 05:18 Platelet Satelliting Not Reportable 10/23/16 05:18 Plt Morphology Comment Not Reportable 10/23/16 05:18 RBC Morphology Not Reportable 10/23/16 05:18 Dimorphic RBCs Not Reportable 10/23/16 05:18 Polychromasia Not Reportable 10/23/16 05:18 Hypochromasia Not Reportable 10/23/16 05:18 Poikilocytosis Few 10/23/16 05:18 Anisocytosis 1+ 10/23/16 05:18 Microcytosis Not Reportable 10/23/16 05:18 Macrocytosis Not Reportable 10/23/16 05:18 Spherocytes Not Reportable 10/23/16 05:18 Pappenheimer Bodies Not Reportable 10/23/16 05:18 Sickle Cells Not Reportable 10/23/16 05:18 Target Cells Not Reportable 10/23/16 05:18 Tear Drop Cells Not Reportable 10/23/16 05:18 Ovalocytes Not Reportable 10/23/16 05:18 Helmet Cells Not Reportable 10/23/16 05:18 Steen-Clementon Bodies Not Reportable 10/23/16 05:18 Rohwer Rings Not Reportable 10/23/16 05:18 Radha Cells Not Reportable 10/23/16 05:18 Bite Cells Not Reportable 10/23/16 05:18 Crenated Cell Not Reportable 10/23/16 05:18 Elliptocytes Not Reportable 10/23/16 05:18 Acanthocytes (Spur) Not Reportable 10/23/16 05:18 Rouleaux Not Reportable 10/23/16 05:18 Hemoglobin C Crystals Not Reportable 10/23/16 05:18 Schistocytes Not Reportable 10/23/16 05:18 Malaria parasites Not Reportable 10/23/16 05:18 ESR > 140.0 mm/Hr (0-20) 10/23/16 16:55 Hakan Bodies Not Reportable 10/23/16 05:18 Hem Pathologist Commnt No 10/23/16 05:18 POC ABG pH 7.330 (7.35-7.45) L 10/22/16 12:24 POC ABG pCO2 21.8 (35-45) L 10/22/16 12:24 POC ABG pO2 48 (80-105) L 10/22/16 12:24 POC ABG HCO3 11.5 10/22/16 12:24 POC ABG Total CO2 12 10/22/16 12:24 POC ABG O2 Sat 82 10/22/16 12:24 POC ABG Base Excess -14 10/22/16 12:24 FiO2 21 % 10/22/16 12:24 Sodium 138 mmol/L (137-145) 10/23/16 05:18 Potassium 2.9 mmol/L (3.6-5.0) L* 10/23/16 05:18 Chloride 100.6 mmol/L (98-107) 10/23/16 05:18 Carbon Dioxide 22 mmol/L (22-30) D 10/23/16 05:18 Anion Gap 18 mmol/L 10/23/16 05:18 BUN 21 mg/dL (7-17) H 10/23/16 05:18 Creatinine 1.0 mg/dL (0.7-1.2) 10/23/16 05:18 Estimated GFR > 60 ml/min 10/23/16 05:18 BUN/Creatinine Ratio 21.00 % 10/23/16 05:18 Glucose 122 mg/dL (65-100) H 10/23/16 05:18 Lactic Acid 2.6 mmol/L (0.7-2.0) H* 10/22/16 10:39 Calcium 7.2 mg/dL (8.4-10.2) L 10/23/16 05:18 Magnesium 1.0 mg/dL (1.7-2.3) L 10/23/16 05:18 Iron 19 ug/dL (37-170) L 10/22/16 16:37 TIBC 119 mcg/dL (250-450) L 10/22/16 16:37 Ferritin 664.4 ng/mL (13.0-400.0) H 10/22/16 16:37 Total Bilirubin 0.5 mg/dL (0.1-1.2) 10/21/16 04:59 Direct Bilirubin 0.4 mg/dL (0-0.2) H 10/19/16 20:51 Indirect Bilirubin 0.5 mg/dL 10/19/16 20:51 AST 21 units/L (5-40) 10/21/16 04:59 ALT 7 units/L (7-56) 10/21/16 04:59 Alkaline Phosphatase 85 units/L (35-129) 10/21/16 04:59 Ammonia 46.0 umol/L (25-60) 10/22/16 21:10 C-Reactive Protein 20.20 mg/dL (0.00-1.30) H 10/23/16 16:55 NT-Pro-B Natriuret Pep 965.1 pg/mL (0-900) H 10/19/16 20:51 Total Protein 6.6 g/dL (6.3-8.2) D 10/21/16 04:59 Albumin 2.4 g/dL (3.9-5) L 10/21/16 04:59 Albumin/Globulin Ratio 0.6 % 10/21/16 04:59 Lipase 37 units/L (13-60) 10/19/16 20:51 Vitamin B12 941.5 pg/mL (211-911) H 10/22/16 16:37 Urine Color Yellow (Yellow) 10/20/16 01:18 Urine Turbidity Clear (Clear) 10/20/16 01:18 Urine pH 5.0 (5.0-7.0) 10/20/16 01:18 Ur Specific [place] 1.017 (1.003-1.030) 10/20/16 01:18 Urine Protein 30 mg/dl mg/dL (Negative) 10/20/16 01:18 Urine Glucose (UA) Neg mg/dL (Negative) 10/20/16 01:18 Urine Ketones Neg mg/dL (Negative) 10/20/16 01:18 Urine Blood Neg (Negative) 10/20/16 01:18 Urine Nitrite Neg (Negative) 10/20/16 01:18 Urine Bilirubin Neg (Negative) 10/20/16 01:18 Urine Urobilinogen < 2.0 mg/dL (<2.0) 10/20/16 01:18 Ur Leukocyte Esterase Neg (Negative) 10/20/16 01:18 Urine WBC (Auto) < 1.0 /HPF (0.0-6.0) 10/20/16 01:18 Urine RBC (Auto) 4.0 /HPF (0.0-6.0) 10/20/16 01:18 U Epithel Cells (Auto) 1.0 /HPF (0-13.0) 10/20/16 01:18 Amorphous Crystals 2+ 10/20/16 01:18 Hyaline Casts 3 /LPF 10/20/16 01:18 Granular Casts 5 /LPF 10/20/16 01:18 Urine Mucus Few /HPF 10/20/16 01:18 Urine Osmolality 462 Mosm/kg 10/21/16 07:50 Urine Creatinine 105.8 mg/dL (0.1-20.0) H 10/21/16 07:50 Protein/Creatinin Ratio 0.46 10/21/16 07:50 Urine Sodium 19 mEq/L 10/21/16 07:50 Urine Chloride 39.4 mEq/L (110-250) L 10/21/16 07:50 Urine Total Protein 48 mg/dL (5-11.8) H 10/21/16 07:50 Proteinase 3 (PR3) Ab <1.0 AI (<1.0) 10/20/16 21:48 Myeloperoxidase Ab <1.0 AI (<1.0) 10/20/16 21:48 Complement C3 123 mg/dL (90-180) 10/20/16 21:48 Complement C4 37 mg/dL (16-47) 10/20/16 21:48 Hepatitis A IgM Ab Non-reactive (NonReactive) 10/20/16 21:48 Hep Bs Antigen Non-reactive (Negative) 10/20/16 21:48 Hep B Core IgM Ab Non-reactive (NonReactive) 10/20/16 21:48 Hepatitis C Antibody Reactive (NonReactive) 10/20/16 21:48
[2016-10-23 23:06] LABS: Albumin 2.4 g/dL (3.8-4.8); Gamma Globulin 1.6 g/dL (0.8-1.7)
[2016-10-24 05:45] LABS: Hematocrit 21.2 % (30.3-42.9); Hemoglobin 6.8 gm/dl (10.1-14.3); Mean Corpuscular HGB Conc 32 % (30-34); Mean Corpuscular Hemoglobin 29 pg (28-32); Mean Corpuscular Volume 89 fl (79-97); Platelet Count 390 K/mm3 (140-440); Red Blood Count 2.39 M/mm3 (3.65-5.03); Red Cell Distribution Width 14.3 % (13.2-15.2)
[2016-10-24 05:49] LABS: White Blood Count 20.3 K/mm3 (4.5-11.0)
[2016-10-24] MEDS: CEPHULAC PO SCH ×4 (05:52→20:57)
[2016-10-24 06:04] LABS: Anion Gap 18 mmol/L; BUN/Creatinine Ratio 19.09; Blood Urea Nitrogen 21 mg/dL (7-17); Calcium 6.8 mg/dL (8.4-10.2); Carbon Dioxide 22 mmol/L (22-30); Chloride 104.1 mmol/L (98-107); Glucose 85 mg/dL (65-100); Magnesium 1.2 mg/dL (1.7-2.3); Potassium 3.7 mmol/L (3.6-5.0); Sodium 140 mmol/L (137-145)
[2016-10-24 06:51] LABS: Basophils % (Manual) 0 % (0.0-1.8); Blastocytes % (Manual) 0 %
[2016-10-24 06:52] LABS: Anisocytosis 1+
[2016-10-24 06:53] LABS: Diff Status Complete
[2016-10-24] MEDS: DUONEB 0.5 MG-3 MG/3 ML SOLN IH SCH ×4 (08:37→20:45)
[2016-10-24] MEDS: SODIUM BICARBONATE PO SCH ×3 (09:16→21:00)
[2016-10-24] MEDS: PROTONIX PO SCH (10:15)
[2016-10-24] MEDS: ROCEPHIN/NS 1 GM/50 ML 1 GM/50 ML BAG IV SCH (10:15)
[2016-10-24] MEDS: MORPHINE IV PRN ×3 (10:16→21:53)
[2016-10-24] MEDS: ZOLOFT PO SCH (10:16)
[2016-10-24] MEDS ORDERED: MAGNESIUM SULFATE 2GM/50ML 2 GM/50 ML BAG IV ONE (11:00)
[2016-10-24] MEDS ORDERED: NACL 0.9% 500 ML 500 ML IV ONE (12:00)
--- NOTE | 2016-10-24 15:21 | Progress Note ---
Assessment and Plan 1. NAI likely 2/2 prerenal azotemia 2. Uremic symptoms 3. Hepatitis C infection-untreated 4. Liver cirrhosis 5. Hypovomeic hyponatremia 6. Hypokalemia 7. AG metabolic acidosis 2/2 likley uremia 8. Anemia, unspecified cause likely multifactorial including CKD 9. Leukocytosis Plan: -BUN/CR back to normal from a peak of 103/5.4 on admission - UA + for protein suggesting Underlying CKD. No baseline CR available Renal U/S reviewed. No hydronephrosis seen. She has well preserved cortex. -Hyponatremia resolved -Potassium improved. -Work up for leukocytosis in progress -ID/GI notes reviewed. Subjective Date of service: 10/24/16 Principal diagnosis: Cirrhosis Interval history: No CP,SOB, N/V/D Objective - Vital Signs Vital signs: Vital Signs - 12hr 10/24/16 10/24/16 10/24/16 07:00 08:37 08:38 Temperature 98.6 F Pulse Rate [ 71 Posterior Bilateral Throughout] Pulse Rate [ 65 Right Dorsalis Pedis] Respiratory 18 Rate Respiratory 16 Rate [Posterior Bilateral Throughout] Blood Pressure 134/84 [Left Arm] O2 Sat by Pulse 100 99 Oximetry 10/24/16 10/24/16 10/24/16 08:47 12:52 13:01 Temperature Pulse Rate [ 85 71 77 Posterior Bilateral Throughout] Pulse Rate [ Right Dorsalis Pedis] Respiratory Rate Respiratory 16 16 16 Rate [Posterior Bilateral Throughout] Blood Pressure [Left Arm] O2 Sat by Pulse Oximetry - General Appearance General appearance: well-developed, well-nourished, appears stated age, fatigue , frail EENT: PERRL, mucous membranes moist Neck: no JVD, no thyromegaly, no carotid bruit, supple Respiratory: Present: Clear to Ascultation. Absent: Ronchi, Wheezes Cardiology: regular, normal heart rate, S1S2, no murmurs Gastrointestinal: normoactive bowel sounds, no tenderness Integumentary: no rash, warm and dry Neurologic: no focal deficit, alert and oriented x3, reflexes 2+ and symmetric, gait normal, strength 5/5 Musculoskeletal: no deformities, no erythema, no cyanosis, no clubbing Psychiatric: mood/affect appropriate, cooperative - Lab 10/24/16 05:08 10/24/16 05:08 Most recent lab results Calcium 6.8 mg/dL (8.4-10.2) L 10/24/16 05:08 Magnesium 1.2 mg/dL (1.7-2.3) L 10/24/16 05:08 Urine Creatinine 105.8 mg/dL (0.1-20.0) H 10/21/16 07:50 Urine Sodium 19 mEq/L 10/21/16 07:50 Urine Total Protein 48 mg/dL (5-11.8) H 10/21/16 07:50
--- NOTE | 2016-10-24 23:44 | Progress Note ---
Assessment and Plan Assessment and plan: 56-year-old woman with hepatitis C with cirrhosis and pancreatitis, major depressive disorder, presenting with worsening fatigue, body aches, decrease appetite, nausea without vomiting and abdominal discomfort, found to have acute renal failure 1. Acute renal failure Likely due to ATN versus vasomotor nephropathy Renal ultrasound showing medical disease Resolved with IV fluids Avoiding nephrotoxins and medications renally dosed Nephrology following 2. Metabolic acidosis Due to renal failure Was on bicarbonate drip Resolved 3. Electrolyte abnormalities Hyponatremia - resolved Hypokalemia - replete and recheck (2.9 today) Hypomagnesemia - replete and recheck (1.2 today) 4. Acute respiratory failure Likely secondary to fluid overload secondary to renal failure/hypoalbuminemia/ IV hydration Chest x-ray clear, VQ scan with low probability for PE, CT chest also obtained ( see discussion below) 5. Upper respiratory infection Symptomatic treatment 6. SIRS CT chest with patchy infiltrates bilat; check HIV status to r/o PCP pneumonia On Rocephin empirically (started on admission) ID consulted and following 7. Acute toxic metabolic encephalopathy Multifactorial - uemia/hyperammonemia/electrolytes abnormalities/? infection Treat underlying conditions Improved 8. Hyperammonemia Treated with lactulose, resolved 9. Hepatitis C/cirrhosis Per GI unclear if she has definitive cirrhosis (labs/imaging tests not consistent with cirrhosis) Followed at [place] 10. Alcohol abuse Placed on CIWA protocol 11. Normocytic anemia Likely secondary to combination of anemia of chronic disease and iron efficiency ; stool occult blood negative B12 and folate within normal limits Even though stool occult blood negative, she may benefit from outpatient GI evaluation with possible EGD/colonoscopy given her status and age Hgb drop overnight with no bleeding; will transfuse 1 unit PRBC and monitor 12. Malnutrition Diet supplementation per public health nutritionist 13. DVT/GI prophylaxis History Interval history: slightly confused, but following commands and answering questions; has no specific complaints; hgb drop, but with no obvious bleeding Hospitalist Physical - Constitutional Vitals: Temp Pulse Resp BP Pulse Ox 98.1 F 92 H 16 142/85 96 10/24/16 20:32 10/24/16 20:53 10/24/16 20:53 10/24/16 20:32 10/24/16 20:32 General appearance: Present: no acute distress - EENT Eyes: Present: PERRL, EOM intact. Absent: scleral icterus, conjunctival injection - Neck Neck: Present: supple, normal ROM. Absent: masses or JVD - Respiratory Respiratory effort: normal Respiratory: bilateral: CTA, negative: rhonchi, wheezing - Cardiovascular Rhythm: regular Heart Sounds: Present: S1 & S2. Absent: systolic murmur - Extremities Extremities: no ischemia - Abdominal General gastrointestinal: soft, non-tender, non-distended, normal bowel sounds - Integumentary Integumentary: Present: warm, dry. Absent: jaundice, rash - Neurologic Neurologic: CNII-XII intact, no focal deficits Results - Labs CBC & Chem 7: 10/26/16 06:40 10/25/16 05:18 Labs: Laboratory Last Values WBC 20.3 K/mm3 (4.5-11.0) H 10/24/16 05:08 RBC 2.39 M/mm3 (3.65-5.03) L 10/24/16 05:08 Hgb 6.8 gm/dl (10.1-14.3) L 10/24/16 05:08 Hct 21.2 % (30.3-42.9) L 10/24/16 05:08 MCV 89 fl (79-97) 10/24/16 05:08 MCH 29 pg (28-32) 10/24/16 05:08 MCHC 32 % (30-34) 10/24/16 05:08 RDW 14.3 % (13.2-15.2) 10/24/16 05:08 Plt Count 390 K/mm3 (140-440) 10/24/16 05:08 Add Manual Diff Complete 10/24/16 05:08 Total Counted 100 10/24/16 05:08 Seg Neuts % (Manual) 79.0 % (40.0-70.0) H 10/24/16 05:08 Band Neutrophils % 0 % 10/24/16 05:08 Lymphocytes % (Manual) 12.0 % (13.4-35.0) L 10/24/16 05:08 Reactive Lymphs % (Man) 0 % 10/24/16 05:08 Monocytes % (Manual) 6.0 % (0.0-7.3) 10/24/16 05:08 Eosinophils % (Manual) 1.0 % (0.0-4.3) 10/24/16 05:08 Basophils % (Manual) 0 % (0.0-1.8) 10/24/16 05:08 Metamyelocytes % 0 % 10/24/16 05:08 Myelocytes % 1.0 % 10/24/16 05:08 Promyelocytes % 1.0 % 10/24/16 05:08 Blast Cells % 0 % 10/24/16 05:08 Nucleated RBC % Not Reportable 10/24/16 05:08 Seg Neutrophils # Man 16.0 K/mm3 (1.8-7.7) H 10/24/16 05:08 Band Neutrophils # 0.0 K/mm3 10/24/16 05:08 Lymphocytes # (Manual) 2.4 K/mm3 (1.2-5.4) 10/24/16 05:08 Abs React Lymphs (Man) 0.0 K/mm3 10/24/16 05:08 Monocytes # (Manual) 1.2 K/mm3 (0.0-0.8) H 10/24/16 05:08 Eosinophils # (Manual) 0.2 K/mm3 (0.0-0.4) 10/24/16 05:08 Basophils # (Manual) 0.0 K/mm3 (0.0-0.1) 10/24/16 05:08 Metamyelocytes # 0.0 K/mm3 10/24/16 05:08 Myelocytes # 0.2 K/mm3 10/24/16 05:08 Promyelocytes # 0.2 K/mm3 10/24/16 05:08 Blast Cells # 0.0 K/mm3 10/24/16 05:08 Pathologist Review 10/24/16 05:08 WBC Morphology Not Reportable 10/24/16 05:08 Hypersegmented Neuts Not Reportable 10/24/16 05:08 Hyposegmented Neuts Not Reportable 10/24/16 05:08 Hypogranular Neuts Not Reportable 10/24/16 05:08 Smudge Cells Not Reportable 10/24/16 05:08 Toxic Granulation Not Reportable 10/24/16 05:08 Toxic Vacuolation Not Reportable 10/24/16 05:08 Dohle Bodies Not Reportable 10/24/16 05:08 Pelger-Huet Anomaly Not Reportable 10/24/16 05:08 Mariana Rods Not Reportable 10/24/16 05:08 Platelet Estimate Appears normal 10/24/16 05:08 Clumped Platelets Not Reportable 10/24/16 05:08 Plt Clumps, EDTA Not Reportable 10/24/16 05:08 Large Platelets Not Reportable 10/24/16 05:08 Giant Platelets Not Reportable 10/24/16 05:08 Platelet Satelliting Not Reportable 10/24/16 05:08 Plt Morphology Comment Not Reportable 10/24/16 05:08 RBC Morphology Not Reportable 10/24/16 05:08 Dimorphic RBCs Not Reportable 10/24/16 05:08 Polychromasia Not Reportable 10/24/16 05:08 Hypochromasia Not Reportable 10/24/16 05:08 Poikilocytosis Not Reportable 10/24/16 05:08 Anisocytosis 1+ 10/24/16 05:08 Microcytosis Not Reportable 10/24/16 05:08 Macrocytosis Not Reportable 10/24/16 05:08 Spherocytes Not Reportable 10/24/16 05:08 Pappenheimer Bodies Not Reportable 10/24/16 05:08 Sickle Cells Not Reportable 10/24/16 05:08 Target Cells Not Reportable 10/24/16 05:08 Tear Drop Cells Not Reportable 10/24/16 05:08 Ovalocytes Not Reportable 10/24/16 05:08 Helmet Cells Not Reportable 10/24/16 05:08 [place] Bodies Not Reportable 10/24/16 05:08 [place] Rings Not Reportable 10/24/16 05:08 Radha Cells Not Reportable 10/24/16 05:08 Bite Cells Not Reportable 10/24/16 05:08 Crenated Cell Not Reportable 10/24/16 05:08 Elliptocytes Not Reportable 10/24/16 05:08 Acanthocytes (Spur) Not Reportable 10/24/16 05:08 Rouleaux Not Reportable 10/24/16 05:08 Hemoglobin C Crystals Not Reportable 10/24/16 05:08 Schistocytes Not Reportable 10/24/16 05:08 Malaria parasites Not Reportable 10/24/16 05:08 ESR > 140.0 mm/Hr (0-20) 10/23/16 16:55 [place] Bodies Not Reportable 10/24/16 05:08 Hem Pathologist Commnt Sent to pathology 10/24/16 05:08 POC ABG pH 7.330 (7.35-7.45) L 10/22/16 12:24 POC ABG pCO2 21.8 (35-45) L 10/22/16 12:24 POC ABG pO2 48 (80-105) L 10/22/16 12:24 POC ABG HCO3 11.5 10/22/16 12:24 POC ABG Total CO2 12 10/22/16 12:24 POC ABG O2 Sat 82 10/22/16 12:24 POC ABG Base Excess -14 10/22/16 12:24 FiO2 21 % 10/22/16 12:24 Sodium 140 mmol/L (137-145) 10/24/16 05:08 Potassium 3.7 mmol/L (3.6-5.0) D 10/24/16 05:08 Chloride 104.1 mmol/L (98-107) 10/24/16 05:08 Carbon Dioxide 22 mmol/L (22-30) 10/24/16 05:08 Anion Gap 18 mmol/L 10/24/16 05:08 BUN 21 mg/dL (7-17) H 10/24/16 05:08 Creatinine 1.1 mg/dL (0.7-1.2) 10/24/16 05:08 Estimated GFR > 60 ml/min 10/24/16 05:08 BUN/Creatinine Ratio 19.09 % 10/24/16 05:08 Glucose 85 mg/dL (65-100) 10/24/16 05:08 Lactic Acid 2.6 mmol/L (0.7-2.0) H* 10/22/16 10:39 Calcium 6.8 mg/dL (8.4-10.2) L 10/24/16 05:08 Magnesium 1.2 mg/dL (1.7-2.3) L 10/24/16 05:08 Iron 19 ug/dL (37-170) L 10/22/16 16:37 TIBC 119 mcg/dL (250-450) L 10/22/16 16:37 Ferritin 664.4 ng/mL (13.0-400.0) H 10/22/16 16:37 Total Bilirubin 0.5 mg/dL (0.1-1.2) 10/21/16 04:59 Direct Bilirubin 0.4 mg/dL (0-0.2) H 10/19/16 20:51 Indirect Bilirubin 0.5 mg/dL 10/19/16 20:51 AST 21 units/L (5-40) 10/21/16 04:59 ALT 7 units/L (7-56) 10/21/16 04:59 Alkaline Phosphatase 85 units/L (35-129) 10/21/16 04:59 Ammonia 46.0 umol/L (25-60) 10/22/16 21:10 C-Reactive Protein 20.20 mg/dL (0.00-1.30) H 10/23/16 16:55 NT-Pro-B Natriuret Pep 965.1 pg/mL (0-900) H 10/19/16 20:51 Serum Total Protein 6.5 g/dL (6.1-8.1) 10/20/16 21:48 Total Protein 6.6 g/dL (6.3-8.2) D 10/21/16 04:59 Albumin 2.4 g/dL (3.9-5) L 10/21/16 04:59 Albumin/Globulin Ratio 0.6 % 10/21/16 04:59 Rgcee-2-Mjymmjaqq 0.6 g/dL (0.2-0.3) H 10/20/16 21:48 Ycjth-2-Pwuksyzak 1.1 g/dL (0.5-0.9) H 10/20/16 21:48 Beta Globulins 0.4 g/dL (0.2-0.5) 10/20/16 21:48 Gamma Globulins 1.6 g/dL (0.8-1.7) 10/20/16 21:48 Abnorm Protein Band 1 see below 10/20/16 21:48 PEP Interpretation see below H 10/20/16 21:48 Lipase 37 units/L (13-60) 10/19/16 20:51 Vitamin B12 941.5 pg/mL (211-911) H 10/22/16 16:37 Urine Color Yellow (Yellow) 10/20/16 01:18 Urine Turbidity Clear (Clear) 10/20/16 01:18 Urine pH 5.0 (5.0-7.0) 10/20/16 01:18 Ur Specific [place] 1.017 (1.003-1.030) 10/20/16 01:18 Urine Protein 30 mg/dl mg/dL (Negative) 10/20/16 01:18 Urine Glucose (UA) Neg mg/dL (Negative) 10/20/16 01:18 Urine Ketones Neg mg/dL (Negative) 10/20/16 01:18 Urine Blood Neg (Negative) 10/20/16 01:18 Urine Nitrite Neg (Negative) 10/20/16 01:18 Urine Bilirubin Neg (Negative) 10/20/16 01:18 Urine Urobilinogen < 2.0 mg/dL (<2.0) 10/20/16 01:18 Ur Leukocyte Esterase Neg (Negative) 10/20/16 01:18 Urine WBC (Auto) < 1.0 /HPF (0.0-6.0) 10/20/16 01:18 Urine RBC (Auto) 4.0 /HPF (0.0-6.0) 10/20/16 01:18 U Epithel Cells (Auto) 1.0 /HPF (0-13.0) 10/20/16 01:18 Amorphous Crystals 2+ 10/20/16 01:18 Hyaline Casts 3 /LPF 10/20/16 01:18 Granular Casts 5 /LPF 10/20/16 01:18 Urine Mucus Few /HPF 10/20/16 01:18 Urine Osmolality 462 Mosm/kg 10/21/16 07:50 Urine Creatinine 105.8 mg/dL (0.1-20.0) H 10/21/16 07:50 Protein/Creatinin Ratio 0.46 10/21/16 07:50 Urine Sodium 19 mEq/L 10/21/16 07:50 Urine Chloride 39.4 mEq/L (110-250) L 10/21/16 07:50 Urine Total Protein 48 mg/dL (5-11.8) H 10/21/16 07:50 YURI Screen Negative (Negative) 10/20/16 21:48 Proteinase 3 (PR3) Ab <1.0 AI (<1.0) 10/20/16 21:48 Myeloperoxidase Ab <1.0 AI (<1.0) 10/20/16 21:48 Complement C3 123 mg/dL (90-180) 10/20/16 21:48 Complement C4 37 mg/dL (16-47) 10/20/16 21:48 Hepatitis A IgM Ab Non-reactive (NonReactive) 10/20/16 21:48 Hep Bs Antigen Non-reactive (Negative) 10/20/16 21:48 Hep B Core IgM Ab Non-reactive (NonReactive) 10/20/16 21:48 Hepatitis C Antibody Reactive (NonReactive) 10/20/16 21:48 Hepatitis C Genotype 1a 10/20/16 21:48 Blood Type B POSITIVE 10/24/16 09:06 Antibody Screen Negative 10/24/16 09:06 Crossmatch See Detail 10/24/16 09:06
[2016-10-25] MEDS: MORPHINE IV PRN ×3 (01:58→20:24)
[2016-10-25] MEDS: ATIVAN IV PRN (01:58)
[2016-10-25] MEDS: CEPHULAC PO SCH ×3 (04:47→18:42)
[2016-10-25 06:01] LABS: Basophils % (Auto) 0.2 % (0.0-1.8); Eosinophils % (Auto) 1.8 % (0.0-4.3); Hematocrit 27.6 % (30.3-42.9); Hemoglobin 9.1 gm/dl (10.1-14.3); Mean Corpuscular HGB Conc 33 % (30-34); Mean Corpuscular Hemoglobin 29 pg (28-32); Mean Corpuscular Volume 88 fl (79-97); Platelet Count 397 K/mm3 (140-440); Red Blood Count 3.14 M/mm3 (3.65-5.03); Red Cell Distribution Width 14.3 % (13.2-15.2); White Blood Count 16.1 K/mm3 (4.5-11.0)
[2016-10-25 06:22] LABS: Anion Gap 15 mmol/L; Blood Urea Nitrogen 18 mg/dL (7-17); Calcium 7.3 mg/dL (8.4-10.2); Carbon Dioxide 25 mmol/L (22-30); Chloride 102.4 mmol/L (98-107); Glucose 83 mg/dL (65-100); Magnesium 1.4 mg/dL (1.7-2.3); Potassium 4.1 mmol/L (3.6-5.0); Sodium 138 mmol/L (137-145)
[2016-10-25] MEDS: DUONEB 0.5 MG-3 MG/3 ML SOLN IH SCH ×3 (08:49→20:29)
[2016-10-25] MEDS ORDERED: MAGNESIUM SULFATE 2GM/50ML 2 GM/50 ML BAG IV ONE (09:30)
[2016-10-25] MEDS: ROCEPHIN/NS 1 GM/50 ML 1 GM/50 ML BAG IV SCH (11:27)
[2016-10-25] MEDS: PROTONIX PO SCH (11:28)
[2016-10-25] MEDS: SODIUM BICARBONATE PO SCH ×3 (11:29→20:24)
[2016-10-25] MEDS: ZOLOFT PO SCH (11:30)
--- NOTE | 2016-10-25 13:26 | Progress Note ---
Assessment and Plan 1. NAI likely 2/2 prerenal azotemia, now resolved 2. Uremic symptoms, resolved 3. Hepatitis C infection-untreated 4. Hypomagnesemia 5. Hypovomeic hyponatremia, resolved 6. Hypokalemia, resolved 7. AG metabolic acidosis 2/2 likely uremia, resolved 8. Anemia, unspecified cause likely multifactorial including CKD 9. Leukocytosis, improving Plan: -BUN/CR back to normal from a peak of 103/5.4 on admission - UA + for protein suggesting Underlying CKD. No baseline CR available Renal U/S reviewed. No hydronephrosis seen. She has well preserved cortex. -Hyponatremia resolved -Potassium improved. Has low magnesium-replete PO/IV -Will follow as needed, please call with questions. Subjective Date of service: 10/25/16 Principal diagnosis: Cirrhosis Interval history: No new events. Objective - Vital Signs Vital signs: Vital Signs - 12hr 10/25/16 10/25/16 10/25/16 04:23 08:49 08:50 Temperature 98.7 F Pulse Rate [ 116 H Anterior Bilateral Throughout] Pulse Rate [ 96 H Left Radial] Pulse Rate [ Right Dorsalis Pedis] Respiratory 16 Rate Respiratory 22 Rate [Anterior Bilateral Throughout] Blood Pressure 159/97 [Left Arm] O2 Sat by Pulse 95 95 Oximetry 10/25/16 10/25/16 09:00 09:19 Temperature 97.8 F Pulse Rate [ 102 H Anterior Bilateral Throughout] Pulse Rate [ Left Radial] Pulse Rate [ 92 H Right Dorsalis Pedis] Respiratory 16 Rate Respiratory 22 Rate [Anterior Bilateral Throughout] Blood Pressure 146/92 [Left Arm] O2 Sat by Pulse 96 Oximetry - General Appearance General appearance: well-developed, well-nourished, appears stated age, fatigue , frail EENT: PERRL, mucous membranes moist Neck: no JVD, no thyromegaly, no carotid bruit, supple Respiratory: Present: Clear to Ascultation. Absent: Wheezes Cardiology: regular, normal heart rate, S1S2, no murmurs Gastrointestinal: normoactive bowel sounds, no tenderness Integumentary: no rash, warm and dry Neurologic: no focal deficit, alert and oriented x3, reflexes 2+ and symmetric, strength 5/5 Musculoskeletal: no deformities, no erythema, no cyanosis, no clubbing Psychiatric: mood/affect appropriate, cooperative - Lab 10/25/16 05:18 10/25/16 05:18 Most recent lab results Calcium 7.3 mg/dL (8.4-10.2) L 10/25/16 05:18 Magnesium 1.4 mg/dL (1.7-2.3) L 10/25/16 05:18 Urine Creatinine 105.8 mg/dL (0.1-20.0) H 10/21/16 07:50 Urine Sodium 19 mEq/L 10/21/16 07:50 Urine Total Protein 48 mg/dL (5-11.8) H 10/21/16 07:50
--- NOTE | 2016-10-25 20:50 | Progress Note ---
Subjective Date of service: 10/25/16 Principal diagnosis: Cirrhosis Interval history: Patient has no new complaints. PHYSICAL EXAM VS - Afebrile chest - good air entry cvs - s1s2 abd - bs + LABS - Reviewed. See lab section CT chest - showed multiple nodularities. CT abd - thicken portion of the colon ASSESSMENT 1. Pneumonia 2. hepatitis c 3. hypokalemia 4. acute kidney failure. 5. Leukocytosis - resolving RECOMMENDATION 1. hiv test 2. pulmonary evaluation for possible bronchoscopy. 4. GI evaluation for colonoscopy and evaluation of thickened portion of colon. 3. cbc in am 4. continue abx Objective - Constitutional Vitals: Vital Signs Temp Pulse Resp BP Pulse Ox 97.8 F 115 H 20 146/92 98 10/25/16 09:19 10/25/16 20:31 10/25/16 20:31 10/25/16 09:19 10/25/16 20:31 Temperature -Last 24 Hours Temperature 97.8 F Temperature 98.7 F Temperature 98.0 F - Labs CBC & Chem 7: 10/25/16 05:18 10/25/16 05:18 Labs: Abnormal lab results 10/25/16 10/25/16 Range/Units 05:18 05:18 WBC 16.1 H (4.5-11.0) K/mm3 RBC 3.14 L (3.65-5.03) M/mm3 Hgb 9.1 L (10.1-14.3) gm/dl Hct 27.6 L D (30.3-42.9) % [place] # 1.1 H (0.0-0.8) K/mm3 Seg Neutrophils % 76.6 H (40.0-70.0) % Seg Neutrophils # 12.3 H (1.8-7.7) K/mm3 BUN 18 H (7-17) mg/dL Calcium 7.3 L (8.4-10.2) mg/dL Magnesium 1.4 L (1.7-2.3) mg/dL
--- NOTE | 2016-10-25 21:27 | Progress Note ---
Assessment and Plan Assessment and plan: 56-year-old woman with hepatitis C with cirrhosis and pancreatitis, major depressive disorder, presenting with worsening fatigue, body aches, decrease appetite, nausea without vomiting and abdominal discomfort, found to have acute renal failure 1. Acute renal failure Likely due to ATN versus vasomotor nephropathy Renal ultrasound showing medical disease Resolved with IV fluids Avoiding nephrotoxins Nephrology following 2. Metabolic acidosis Due to renal failure Was on bicarbonate drip Resolved 3. Electrolyte abnormalities Hyponatremia - resolved Hypokalemia - resolved Hypomagnesemia - continue to replete and recheck daily 4. Acute respiratory failure Likely secondary to fluid overload secondary to renal failure/hypoalbuminemia/ IV hydration Chest x-ray clear, VQ scan with low probability for PE, CT chest also obtained ( see discussion below) 5. Upper respiratory infection Symptomatic treatment 6. SIRS CT chest with patchy infiltrates bilat; HIV status checked to r/o PCP pneumonia (negative) On admission started on Rocephin empirically and ID continued it WBC trended down, but still elevated, inflam markers elevated Will consult Pulmonary 7. Acute toxic metabolic encephalopathy Multifactorial - uemia/hyperammonemia/electrolytes abnormalities/? infection Treat underlying conditions Improved 8. Hyperammonemia Treated with lactulose, resolved 9. Hepatitis C/cirrhosis Per GI unclear if she has definitive cirrhosis (labs/imaging tests not consistent with cirrhosis) Followed at [facility] 10. Alcohol abuse Placed on CIWA protocol 11. Normocytic anemia Likely secondary to combination of anemia of chronic disease and iron efficiency ; stool occult blood negative B12 and folate within normal limits Even though stool occult blood negative, she may benefit from outpatient GI evaluation with possible EGD/colonoscopy given her status and age S/p 1 unit PRBC Start iron supplem Monitor H&H 12. Malnutrition Diet supplementation per tire fixer 13. DVT/GI prophylaxis History Interval history: no events overnight, no change in her mental status (seems confused, but answers questions appropriately) Hospitalist Physical - Constitutional Vitals: Temp Pulse Resp BP Pulse Ox 98.1 F 115 H 20 124/84 98 10/25/16 17:00 10/25/16 20:40 10/25/16 20:40 10/25/16 17:00 10/25/16 20:31 General appearance: Present: no acute distress - EENT Eyes: Present: PERRL, EOM intact. Absent: scleral icterus, conjunctival injection - Neck Neck: Present: supple, normal ROM. Absent: masses or JVD - Respiratory Respiratory effort: normal Respiratory: bilateral: CTA, negative: rales, rhonchi, wheezing - Cardiovascular Rhythm: regular Heart Sounds: Present: S1 & S2. Absent: systolic murmur - Extremities Extremities: no ischemia - Abdominal General gastrointestinal: soft, non-tender, non-distended, normal bowel sounds - Integumentary Integumentary: Present: warm, dry. Absent: jaundice, rash - Neurologic Neurologic: CNII-XII intact, no focal deficits Results - Labs CBC & Chem 7: 10/26/16 06:40 10/25/16 05:18 Labs: Laboratory Last Values WBC 16.1 K/mm3 (4.5-11.0) H 10/25/16 05:18 RBC 3.14 M/mm3 (3.65-5.03) L 10/25/16 05:18 Hgb 9.1 gm/dl (10.1-14.3) L 10/25/16 05:18 Hct 27.6 % (30.3-42.9) L D 10/25/16 05:18 MCV 88 fl (79-97) 10/25/16 05:18 MCH 29 pg (28-32) 10/25/16 05:18 MCHC 33 % (30-34) 10/25/16 05:18 RDW 14.3 % (13.2-15.2) 10/25/16 05:18 Plt Count 397 K/mm3 (140-440) 10/25/16 05:18 Lymph % (Auto) 14.3 % (13.4-35.0) 10/25/16 05:18 [place] % (Auto) 7.1 % (0.0-7.3) 10/25/16 05:18 Eos % (Auto) 1.8 % (0.0-4.3) 10/25/16 05:18 Baso % (Auto) 0.2 % (0.0-1.8) 10/25/16 05:18 Lymph # 2.3 K/mm3 (1.2-5.4) 10/25/16 05:18 [place] # 1.1 K/mm3 (0.0-0.8) H 10/25/16 05:18 Eos # 0.3 K/mm3 (0.0-0.4) 10/25/16 05:18 Baso # 0.0 K/mm3 (0.0-0.1) 10/25/16 05:18 Add Manual Diff Complete 10/24/16 05:08 Total Counted 100 10/24/16 05:08 Seg Neutrophils % 76.6 % (40.0-70.0) H 10/25/16 05:18 Seg Neuts % (Manual) 79.0 % (40.0-70.0) H 10/24/16 05:08 Band Neutrophils % 0 % 10/24/16 05:08 Lymphocytes % (Manual) 12.0 % (13.4-35.0) L 10/24/16 05:08 Reactive Lymphs % (Man) 0 % 10/24/16 05:08 Monocytes % (Manual) 6.0 % (0.0-7.3) 10/24/16 05:08 Eosinophils % (Manual) 1.0 % (0.0-4.3) 10/24/16 05:08 Basophils % (Manual) 0 % (0.0-1.8) 10/24/16 05:08 Metamyelocytes % 0 % 10/24/16 05:08 Myelocytes % 1.0 % 10/24/16 05:08 Promyelocytes % 1.0 % 10/24/16 05:08 Blast Cells % 0 % 10/24/16 05:08 Nucleated RBC % Not Reportable 10/24/16 05:08 Seg Neutrophils # 12.3 K/mm3 (1.8-7.7) H 10/25/16 05:18 Seg Neutrophils # Man 16.0 K/mm3 (1.8-7.7) H 10/24/16 05:08 Band Neutrophils # 0.0 K/mm3 10/24/16 05:08 Lymphocytes # (Manual) 2.4 K/mm3 (1.2-5.4) 10/24/16 05:08 Abs React Lymphs (Man) 0.0 K/mm3 10/24/16 05:08 Monocytes # (Manual) 1.2 K/mm3 (0.0-0.8) H 10/24/16 05:08 Eosinophils # (Manual) 0.2 K/mm3 (0.0-0.4) 10/24/16 05:08 Basophils # (Manual) 0.0 K/mm3 (0.0-0.1) 10/24/16 05:08 Metamyelocytes # 0.0 K/mm3 10/24/16 05:08 Myelocytes # 0.2 K/mm3 10/24/16 05:08 Promyelocytes # 0.2 K/mm3 10/24/16 05:08 Blast Cells # 0.0 K/mm3 10/24/16 05:08 Pathologist Review 10/24/16 05:08 WBC Morphology Not Reportable 10/24/16 05:08 Hypersegmented Neuts Not Reportable 10/24/16 05:08 Hyposegmented Neuts Not Reportable 10/24/16 05:08 Hypogranular Neuts Not Reportable 10/24/16 05:08 Smudge Cells Not Reportable 10/24/16 05:08 Toxic Granulation Not Reportable 10/24/16 05:08 Toxic Vacuolation Not Reportable 10/24/16 05:08 Dohle Bodies Not Reportable 10/24/16 05:08 Pelger-Huet Anomaly Not Reportable 10/24/16 05:08 Mariana Rods Not Reportable 10/24/16 05:08 Platelet Estimate Appears normal 10/24/16 05:08 Clumped Platelets Not Reportable 10/24/16 05:08 Plt Clumps, EDTA Not Reportable 10/24/16 05:08 Large Platelets Not Reportable 10/24/16 05:08 Giant Platelets Not Reportable 10/24/16 05:08 Platelet Satelliting Not Reportable 10/24/16 05:08 Plt Morphology Comment Not Reportable 10/24/16 05:08 RBC Morphology Not Reportable 10/24/16 05:08 Dimorphic RBCs Not Reportable 10/24/16 05:08 Polychromasia Not Reportable 10/24/16 05:08 Hypochromasia Not Reportable 10/24/16 05:08 Poikilocytosis Not Reportable 10/24/16 05:08 Anisocytosis 1+ 10/24/16 05:08 Microcytosis Not Reportable 10/24/16 05:08 Macrocytosis Not Reportable 10/24/16 05:08 Spherocytes Not Reportable 10/24/16 05:08 Pappenheimer Bodies Not Reportable 10/24/16 05:08 Sickle Cells Not Reportable 10/24/16 05:08 Target Cells Not Reportable 10/24/16 05:08 Tear Drop Cells Not Reportable 10/24/16 05:08 Ovalocytes Not Reportable 10/24/16 05:08 Helmet Cells Not Reportable 10/24/16 05:08 [place] Bodies Not Reportable 10/24/16 05:08 [place] Rings Not Reportable 10/24/16 05:08 Radha Cells Not Reportable 10/24/16 05:08 Bite Cells Not Reportable 10/24/16 05:08 Crenated Cell Not Reportable 10/24/16 05:08 Elliptocytes Not Reportable 10/24/16 05:08 Acanthocytes (Spur) Not Reportable 10/24/16 05:08 Rouleaux Not Reportable 10/24/16 05:08 Hemoglobin C Crystals Not Reportable 10/24/16 05:08 Schistocytes Not Reportable 10/24/16 05:08 Malaria parasites Not Reportable 10/24/16 05:08 ESR > 140.0 mm/Hr (0-20) 10/23/16 16:55 [place] Bodies Not Reportable 10/24/16 05:08 Hem Pathologist Commnt Sent to pathology 10/24/16 05:08 POC ABG pH 7.330 (7.35-7.45) L 10/22/16 12:24 POC ABG pCO2 21.8 (35-45) L 10/22/16 12:24 POC ABG pO2 48 (80-105) L 10/22/16 12:24 POC ABG HCO3 11.5 10/22/16 12:24 POC ABG Total CO2 12 10/22/16 12:24 POC ABG O2 Sat 82 10/22/16 12:24 POC ABG Base Excess -14 10/22/16 12:24 FiO2 21 % 10/22/16 12:24 Sodium 138 mmol/L (137-145) 10/25/16 05:18 Potassium 4.1 mmol/L (3.6-5.0) 10/25/16 05:18 Chloride 102.4 mmol/L (98-107) 10/25/16 05:18 Carbon Dioxide 25 mmol/L (22-30) 10/25/16 05:18 Anion Gap 15 mmol/L 10/25/16 05:18 BUN 18 mg/dL (7-17) H 10/25/16 05:18 Creatinine 0.8 mg/dL (0.7-1.2) 10/25/16 05:18 Estimated GFR > 60 ml/min 10/25/16 05:18 BUN/Creatinine Ratio 22.50 % 10/25/16 05:18 Glucose 83 mg/dL (65-100) 10/25/16 05:18 Lactic Acid 2.6 mmol/L (0.7-2.0) H* 10/22/16 10:39 Calcium 7.3 mg/dL (8.4-10.2) L 10/25/16 05:18 Magnesium 1.4 mg/dL (1.7-2.3) L 10/25/16 05:18 Iron 19 ug/dL (37-170) L 10/22/16 16:37 TIBC 119 mcg/dL (250-450) L 10/22/16 16:37 Ferritin 664.4 ng/mL (13.0-400.0) H 10/22/16 16:37 Total Bilirubin 0.5 mg/dL (0.1-1.2) 10/21/16 04:59 Direct Bilirubin 0.4 mg/dL (0-0.2) H 10/19/16 20:51 Indirect Bilirubin 0.5 mg/dL 10/19/16 20:51 AST 21 units/L (5-40) 10/21/16 04:59 ALT 7 units/L (7-56) 10/21/16 04:59 Alkaline Phosphatase 85 units/L (35-129) 10/21/16 04:59 Ammonia 46.0 umol/L (25-60) 10/22/16 21:10 C-Reactive Protein 20.20 mg/dL (0.00-1.30) H 10/23/16 16:55 NT-Pro-B Natriuret Pep 965.1 pg/mL (0-900) H 10/19/16 20:51 Serum Total Protein 6.5 g/dL (6.1-8.1) 10/20/16 21:48 Total Protein 6.6 g/dL (6.3-8.2) D 10/21/16 04:59 Albumin 2.4 g/dL (3.9-5) L 10/21/16 04:59 Albumin/Globulin Ratio 0.6 % 10/21/16 04:59 Brsvn-7-Yyxiirfmf 0.6 g/dL (0.2-0.3) H 10/20/16 21:48 Xubui-0-Oskegndjx 1.1 g/dL (0.5-0.9) H 10/20/16 21:48 Beta Globulins 0.4 g/dL (0.2-0.5) 10/20/16 21:48 Gamma Globulins 1.6 g/dL (0.8-1.7) 10/20/16 21:48 Abnorm Protein Band 1 see below 10/20/16 21:48 PEP Interpretation see below H 10/20/16 21:48 Lipase 37 units/L (13-60) 10/19/16 20:51 Vitamin B12 941.5 pg/mL (211-911) H 10/22/16 16:37 RBC Folic Acid 848 ng/mL (>280) 10/22/16 16:37 Urine Color Yellow (Yellow) 10/20/16 01:18 Urine Turbidity Clear (Clear) 10/20/16 01:18 Urine pH 5.0 (5.0-7.0) 10/20/16 01:18 Ur Specific [place] 1.017 (1.003-1.030) 10/20/16 01:18 Urine Protein 30 mg/dl mg/dL (Negative) 10/20/16 01:18 Urine Glucose (UA) Neg mg/dL (Negative) 10/20/16 01:18 Urine Ketones Neg mg/dL (Negative) 10/20/16 01:18 Urine Blood Neg (Negative) 10/20/16 01:18 Urine Nitrite Neg (Negative) 10/20/16 01:18 Urine Bilirubin Neg (Negative) 10/20/16 01:18 Urine Urobilinogen < 2.0 mg/dL (<2.0) 10/20/16 01:18 Ur Leukocyte Esterase Neg (Negative) 10/20/16 01:18 Urine WBC (Auto) < 1.0 /HPF (0.0-6.0) 10/20/16 01:18 Urine RBC (Auto) 4.0 /HPF (0.0-6.0) 10/20/16 01:18 U Epithel Cells (Auto) 1.0 /HPF (0-13.0) 10/20/16 01:18 Amorphous Crystals 2+ 10/20/16 01:18 Hyaline Casts 3 /LPF 10/20/16 01:18 Granular Casts 5 /LPF 10/20/16 01:18 Urine Mucus Few /HPF 10/20/16 01:18 Urine Osmolality 462 Mosm/kg 10/21/16 07:50 Urine Creatinine 105.8 mg/dL (0.1-20.0) H 10/21/16 07:50 Protein/Creatinin Ratio 0.46 10/21/16 07:50 Urine Sodium 19 mEq/L 10/21/16 07:50 Urine Chloride 39.4 mEq/L (110-250) L 10/21/16 07:50 Urine Total Protein 48 mg/dL (5-11.8) H 10/21/16 07:50 YURI Screen Negative (Negative) 10/20/16 21:48 Proteinase 3 (PR3) Ab <1.0 AI (<1.0) 10/20/16 21:48 Myeloperoxidase Ab <1.0 AI (<1.0) 10/20/16 21:48 Complement C3 123 mg/dL (90-180) 10/20/16 21:48 Complement C4 37 mg/dL (16-47) 10/20/16 21:48 Hepatitis A IgM Ab Non-reactive (NonReactive) 10/20/16 21:48 Hep Bs Antigen Non-reactive (Negative) 10/20/16 21:48 Hep B Core IgM Ab Non-reactive (NonReactive) 10/20/16 21:48 Hepatitis C Antibody Reactive (NonReactive) 10/20/16 21:48 Hepatitis C Genotype 1a 10/20/16 21:48 Blood Type B POSITIVE 10/24/16 09:06 Antibody Screen Negative 10/24/16 09:06 Crossmatch See Detail 10/24/16 09:06
[2016-10-25 22:52] LABS: HIV-1 Antigen p24 Non React (Non React); HIVR-1/2 Ab Non React (Non React)
[2016-10-26] MEDS: MORPHINE IV PRN ×4 (04:11→19:03)
[2016-10-26 07:38] LABS: Basophils % (Auto) 0.5 % (0.0-1.8); Eosinophils % (Auto) 1.5 % (0.0-4.3); Hematocrit 26.7 % (30.3-42.9); Hemoglobin 8.7 gm/dl (10.1-14.3); Mean Corpuscular HGB Conc 33 % (30-34); Mean Corpuscular Hemoglobin 29 pg (28-32); Mean Corpuscular Volume 89 fl (79-97); Platelet Count 375 K/mm3 (140-440); Red Blood Count 3.01 M/mm3 (3.65-5.03); Red Cell Distribution Width 14.3 % (13.2-15.2); White Blood Count 17.2 K/mm3 (4.5-11.0)
[2016-10-26] MEDS: SODIUM BICARBONATE PO SCH ×3 (08:19→22:21)
[2016-10-26] MEDS: DUONEB 0.5 MG-3 MG/3 ML SOLN IH SCH ×3 (08:37→22:05)
[2016-10-26] MEDS ORDERED: MAGNESIUM SULFATE 2GM/50ML 2 GM/50 ML BAG IV ONE (09:00)
[2016-10-26] MEDS: PROTONIX PO SCH (10:16)
[2016-10-26] MEDS: ZOLOFT PO SCH (10:17)
[2016-10-26] MEDS: ROCEPHIN/NS 1 GM/50 ML 1 GM/50 ML BAG IV SCH (10:21)
--- NOTE | 2016-10-26 14:39 | Consultation ---
History of Present Illness Consult date: 10/26/16 Requesting physician: JT PRIEST Reason for consult: abnormal CXR/CT History of present illness: 56 y/o female, admitted with fatigue and malaise. Had CT of chest done that was abnormal, hence this pulmonary consult. Per patient she has been short of breath for over a year. she has never seen a lung specialist. She did smoke for several years but quit. no exposure to birds or other environmental exposures. complains of chest pain with deep breaths. Does not wear oxygen at home. Past History Past Medical History: other (hepatitis C, liver cirrhosis, kidney disease ) Past Surgical History: No surgical history Social history: denies: smoking, alcohol abuse, IV drug use Family history: other (No FH Kidney disease ) Medications and Allergies Allergies Allergy/AdvReac Type Severity Reaction Status Date / Time No Known Allergies Allergy Unverified 10/19/16 20:26 Home Medications Medication Instructions Recorded Confirmed Last Taken Type SEROquel 100 mg PO DAILY 10/19/16 10/19/16 Unknown History Seroquel 200 mg PO HS 10/19/16 10/19/16 Unknown History Zoloft 50 mg PO DAILY 10/19/16 10/19/16 Unknown History Active Meds: Active Medications Acetaminophen (Tylenol) 325 mg PO Q6H PRN PRN Reason: Pain, Mild (1-3) Last Admin: 10/21/16 09:45 Dose: 325 mg Albuterol (Proventil) 2.5 mg IH Q4HRT PRN PRN Reason: Shortness Of Breath Albuterol/Ipratropium (Duoneb 0.5 Mg-3 Mg/3 Ml Soln) 1 ampul IH TIDRT [facility] Last Admin: 10/26/16 08:37 Dose: 1 ampul Haloperidol Lactate (Haldol) 5 mg IV Q1HR PRN PRN Reason: Unrespon. to mult. doses BZD's Ceftriaxone Sodium (Rocephin/Ns 1 Gm/50 Ml) 1 gm in 50 mls @ 100 mls/hr IV Q24HR AMELIA PRN Reason: Protocol Last Admin: 10/26/16 10:21 Dose: 100 mls/hr Labetalol HCl (Normodyne) 10 mg IV PRN PRN PRN Reason: Hypertension Last Admin: 10/23/16 01:29 Dose: 10 mg Lorazepam (Ativan) 2 mg IV Q1HR PRN PRN Reason: CIWA-Ar 8-15 Last Admin: 10/25/16 01:58 Dose: 2 mg Lorazepam (Ativan) 4 mg IV Q1HR PRN PRN Reason: CIWA-Ar 16-25 Lorazepam (Ativan) 4 mg IV Q15MIN PRN PRN Reason: CIWA-Ar >25 Morphine Sulfate (Morphine) 1 mg IV Q4H PRN PRN Reason: Pain, Moderate (4-6) Last Admin: 10/26/16 14:02 Dose: 1 mg Ondansetron HCl (Zofran) 4 mg IV Q4H PRN PRN Reason: Nausea And Vomiting Pantoprazole Sodium (Protonix) 40 mg PO DAILY [facility] Last Admin: 10/26/16 10:16 Dose: 40 mg Quetiapine Fumarate (Seroquel) 100 mg PO DAILY [facility] Last Admin: 10/26/16 10:16 Dose: 100 mg Quetiapine Fumarate (Seroquel) 200 mg PO HS [facility] Last Admin: 10/25/16 21:53 Dose: 200 mg Sertraline HCl (Zoloft) 50 mg PO DAILY [facility] Last Admin: 10/26/16 10:17 Dose: 50 mg Sodium Bicarbonate (Sodium Bicarbonate) 650 mg PO TID [facility] Last Admin: 10/26/16 14:02 Dose: 650 mg Physical Examination Vital signs: Vital Signs Temp Pulse Resp BP Pulse Ox 98.7 F 99 H 24 106/86 99 10/19/16 20:15 10/19/16 20:15 10/19/16 20:15 10/19/16 20:15 10/19/16 20:15 General appearance: no acute distress, alert, other (ill appearing female) Eyes: icteric ENT: oropharynx dry Neck: supple Effort: normal Ascultation: Bilateral: diminished breath sounds, rhonchi Percussion: Bilateral: not dull Results - Laboratory Findings CBC and BMP: 10/26/16 06:40 10/25/16 05:18 ABG POC ABG pH 7.330 (7.35-7.45) L 10/22/16 12:24 POC ABG pCO2 21.8 (35-45) L 10/22/16 12:24 POC ABG pO2 48 (80-105) L 10/22/16 12:24 POC ABG HCO3 11.5 10/22/16 12:24 POC ABG Total CO2 12 10/22/16 12:24 POC ABG O2 Sat 82 10/22/16 12:24 Abnormal lab findings: Abnormal Labs 10/20/16 10/20/16 10/20/16 10:00 10:00 21:48 WBC 23.2 H RBC 3.19 L Hgb 9.0 L Hct 28.0 L Plt Count [place] # Seg Neutrophils % Seg Neuts % (Manual) 77.0 H Lymphocytes % (Manual) 8.0 L Monocytes % (Manual) 8.0 H Seg Neutrophils # Seg Neutrophils # Man 17.9 H Monocytes # (Manual) 1.9 H POC ABG pH POC ABG pCO2 POC ABG pO2 Sodium 133 L D Potassium 3.1 L Chloride Carbon Dioxide 17 L BUN 86 H Creatinine 4.2 H Glucose 105 H Lactic Acid Calcium Magnesium Iron TIBC Ferritin C-Reactive Protein Albumin 2.4 L Tgqbk-6-Yooavwhzo 0.6 H Hbxke-5-Mkejaqrfq 1.1 H PEP Interpretation see below H Vitamin B12 Urine Creatinine Urine Chloride Urine Total Protein Crossmatch 10/21/16 10/21/16 10/21/16 04:59 04:59 07:50 WBC 24.3 H RBC 2.94 L Hgb 8.6 L Hct 26.2 L Plt Count [place] # Seg Neutrophils % Seg Neuts % (Manual) Lymphocytes % (Manual) Monocytes % (Manual) Seg Neutrophils # Seg Neutrophils # Man Monocytes # (Manual) POC ABG pH POC ABG pCO2 POC ABG pO2 Sodium Potassium 3.4 L Chloride 110.2 H Carbon Dioxide 16 L BUN 65 H Creatinine 2.3 H Glucose Lactic Acid Calcium 8.0 L Magnesium Iron TIBC Ferritin C-Reactive Protein Albumin 2.4 L Hprqc-6-Rxuwmjsal Qxrux-6-Azklzvpcm PEP Interpretation Vitamin B12 Urine Creatinine 105.8 H Urine Chloride 39.4 L Urine Total Protein 48 H Crossmatch 10/22/16 10/22/16 10/22/16 04:59 04:59 10:39 WBC 25.8 H RBC 2.64 L Hgb 7.4 L Hct 23.8 L Plt Count [place] # Seg Neutrophils % Seg Neuts % (Manual) 79.0 H Lymphocytes % (Manual) 6.0 L Monocytes % (Manual) 9.0 H Seg Neutrophils # Seg Neutrophils # Man 20.4 H Monocytes # (Manual) 2.3 H POC ABG pH POC ABG pCO2 POC ABG pO2 Sodium Potassium 2.9 L* Chloride 116.3 H Carbon Dioxide 12 L BUN 35 H Creatinine 1.3 H Glucose Lactic Acid 2.6 H* Calcium 7.3 L Magnesium Iron TIBC Ferritin C-Reactive Protein Albumin Wgdjp-1-Nyrnovbgm Dsugb-6-Lbqgnguid PEP Interpretation Vitamin B12 Urine Creatinine Urine Chloride Urine Total Protein Crossmatch 10/22/16 10/22/16 10/22/16 10:39 12:09 12:24 WBC RBC Hgb Hct Plt Count [place] # Seg Neutrophils % Seg Neuts % (Manual) Lymphocytes % (Manual) Monocytes % (Manual) Seg Neutrophils # Seg Neutrophils # Man Monocytes # (Manual) POC ABG pH 7.294 L 7.330 L POC ABG pCO2 24.1 L 21.8 L POC ABG pO2 36 L 48 L Sodium Potassium Chloride Carbon Dioxide BUN Creatinine Glucose Lactic Acid Calcium Magnesium 1.0 L Iron TIBC Ferritin C-Reactive Protein Albumin Tnjhy-9-Qdvhhmmue Gtpir-7-Rgcqgmhri PEP Interpretation Vitamin B12 Urine Creatinine Urine Chloride Urine Total Protein Crossmatch 10/22/16 10/22/16 10/22/16 16:37 16:37 16:37 WBC RBC Hgb Hct Plt Count [place] # Seg Neutrophils % Seg Neuts % (Manual) Lymphocytes % (Manual) Monocytes % (Manual) Seg Neutrophils # Seg Neutrophils # Man Monocytes # (Manual) POC ABG pH POC ABG pCO2 POC ABG pO2 Sodium Potassium Chloride Carbon Dioxide BUN Creatinine Glucose Lactic Acid Calcium Magnesium Iron 19 L TIBC 119 L Ferritin 664.4 H C-Reactive Protein Albumin Tupzg-8-Waswyzjhd Fpjsi-3-Mlvngtfld PEP Interpretation Vitamin B12 941.5 H Urine Creatinine Urine Chloride Urine Total Protein Crossmatch 10/23/16 10/23/16 10/23/16 05:18 05:18 16:55 WBC 25.2 H RBC 2.95 L Hgb 8.4 L Hct 25.6 L Plt Count 457 H [place] # Seg Neutrophils % Seg Neuts % (Manual) 76.0 H Lymphocytes % (Manual) Monocytes % (Manual) Seg Neutrophils # Seg Neutrophils # Man 19.2 H Monocytes # (Manual) 1.5 H POC ABG pH POC ABG pCO2 POC ABG pO2 Sodium Potassium 2.9 L* Chloride Carbon Dioxide BUN 21 H Creatinine Glucose 122 H Lactic Acid Calcium 7.2 L Magnesium 1.0 L Iron TIBC Ferritin C-Reactive Protein 20.20 H Albumin Etowq-7-Qvnyqvxun Korby-8-Muwomavxv PEP Interpretation Vitamin B12 Urine Creatinine Urine Chloride Urine Total Protein Crossmatch 10/24/16 10/24/16 10/24/16 05:08 05:08 09:06 WBC 20.3 H RBC 2.39 L Hgb 6.8 L Hct 21.2 L Plt Count [place] # Seg Neutrophils % Seg Neuts % (Manual) 79.0 H Lymphocytes % (Manual) 12.0 L Monocytes % (Manual) Seg Neutrophils # Seg Neutrophils # Man 16.0 H Monocytes # (Manual) 1.2 H POC ABG pH POC ABG pCO2 POC ABG pO2 Sodium Potassium Chloride Carbon Dioxide BUN 21 H Creatinine Glucose Lactic Acid Calcium 6.8 L Magnesium 1.2 L Iron TIBC Ferritin C-Reactive Protein Albumin Ndfwp-9-Hrdbnpvhq Qdgxn-3-Tpztedgfy PEP Interpretation Vitamin B12 Urine Creatinine Urine Chloride Urine Total Protein Crossmatch See Detail 10/25/16 10/25/16 10/26/16 05:18 05:18 06:40 WBC 16.1 H 17.2 H RBC 3.14 L 3.01 L Hgb 9.1 L 8.7 L Hct 27.6 L D 26.7 L Plt Count [place] # 1.1 H 1.1 H Seg Neutrophils % 76.6 H 76.9 H Seg Neuts % (Manual) Lymphocytes % (Manual) Monocytes % (Manual) Seg Neutrophils # 12.3 H 13.2 H Seg Neutrophils # Man Monocytes # (Manual) POC ABG pH POC ABG pCO2 POC ABG pO2 Sodium Potassium Chloride Carbon Dioxide BUN 18 H Creatinine Glucose Lactic Acid Calcium 7.3 L Magnesium 1.4 L Iron TIBC Ferritin C-Reactive Protein Albumin Srpqb-3-Ydthkiqtv Tumsm-6-Riuqsnnmt PEP Interpretation Vitamin B12 Urine Creatinine Urine Chloride Urine Total Protein Crossmatch 10/26/16 06:40 WBC RBC Hgb Hct Plt Count [place] # Seg Neutrophils % Seg Neuts % (Manual) Lymphocytes % (Manual) Monocytes % (Manual) Seg Neutrophils # Seg Neutrophils # Man Monocytes # (Manual) POC ABG pH POC ABG pCO2 POC ABG pO2 Sodium Potassium Chloride Carbon Dioxide BUN Creatinine Glucose Lactic Acid Calcium Magnesium 1.5 L Iron TIBC Ferritin C-Reactive Protein Albumin Nlhwd-9-Xfxusehnj Rttlw-0-Beuqkkdtn PEP Interpretation Vitamin B12 Urine Creatinine Urine Chloride Urine Total Protein Crossmatch - Diagnostic Findings CT scan - chest: image reviewed Assessment and Plan 56 y/o female with abnormal CT of chest 1. Agree, patient would benefit from bronch. Biopsy would be difficult blindly as she is high risk for pneumo with cystic lung disease and lack of disease seen on the periphery. 2. Earliest could bronch would be Saturday. Discussed with patient and she agrees.
--- NOTE | 2016-10-26 16:40 | Progress Note ---
Assessment and Plan Assessment and plan: 56-year-old woman with hepatitis C with cirrhosis and pancreatitis, major depressive disorder, presenting with worsening fatigue, body aches, decrease appetite, nausea without vomiting and abdominal discomfort, found to have acute renal failure 1. Acute renal failure Likely due to ATN versus vasomotor nephropathy Renal ultrasound showing medical disease Resolved with IV fluids Avoiding nephrotoxins Nephrology following 2. Metabolic acidosis Due to renal failure Was on bicarbonate drip Resolved 3. Electrolyte abnormalities Hyponatremia - resolved Hypokalemia - resolved Hypomagnesemia - continue to replete and recheck daily 4. Acute respiratory failure Likely secondary to fluid overload secondary to renal failure/hypoalbuminemia/ IV hydration Chest x-ray clear, VQ scan with low probability for PE, CT chest also obtained ( see discussion below) 5. Upper respiratory infection Symptomatic treatment 6. SIRS CT chest with patchy infiltrates bilat; HIV status checked to r/o PCP pneumonia (negative) On admission started on Rocephin empirically and ID continued it WBC trended down, but still elevated, inflam markers elevated Pulmonary consulted and plans bronchoscopy on Saturday 7. Acute toxic metabolic encephalopathy Multifactorial - uemia/hyperammonemia/electrolytes abnormalities/? infection Treat underlying conditions Improved 8. Hyperammonemia Treated with lactulose, resolved 9. Hepatitis C/cirrhosis Per GI unclear if she has definitive cirrhosis (labs/imaging tests not consistent with cirrhosis) Followed at [facility] 10. Alcohol abuse Placed on CIWA protocol 11. Normocytic anemia Likely secondary to combination of anemia of chronic disease and iron efficiency ; stool occult blood negative B12 and folate within normal limits Even though stool occult blood negative, she may benefit from outpatient GI evaluation with possible EGD/colonoscopy given her status and age S/p 1 unit PRBC Start iron supplem Monitor H&H 12. Malnutrition Diet supplementation per auto body repairer 13. Depression On Seroquel and Zoloft 14. DVT/GI prophylaxis History Interval history: no events overnight, c/o some chest discomfort/back pain Hospitalist Physical - Constitutional Vitals: Temp Pulse Resp BP Pulse Ox 97.6 F 97 H 20 136/91 99 10/26/16 08:43 10/26/16 15:05 10/26/16 15:05 10/26/16 08:43 10/26/16 08:43 General appearance: Present: no acute distress - EENT Eyes: Present: PERRL, EOM intact. Absent: scleral icterus, conjunctival injection - Neck Neck: Present: supple, normal ROM. Absent: masses or JVD - Respiratory Respiratory effort: normal Respiratory: bilateral: diminished, negative: rhonchi, wheezing - Cardiovascular Rhythm: regular Heart Sounds: Present: S1 & S2. Absent: systolic murmur - Extremities Extremities: no ischemia - Abdominal General gastrointestinal: soft, non-tender, non-distended, normal bowel sounds - Integumentary Integumentary: Present: warm, dry. Absent: jaundice, rash - Neurologic Neurologic: CNII-XII intact, no focal deficits Results - Labs CBC & Chem 7: 10/26/16 06:40 10/25/16 05:18 Labs: Laboratory Last Values WBC 17.2 K/mm3 (4.5-11.0) H 10/26/16 06:40 RBC 3.01 M/mm3 (3.65-5.03) L 10/26/16 06:40 Hgb 8.7 gm/dl (10.1-14.3) L 10/26/16 06:40 Hct 26.7 % (30.3-42.9) L 10/26/16 06:40 MCV 89 fl (79-97) 10/26/16 06:40 MCH 29 pg (28-32) 10/26/16 06:40 MCHC 33 % (30-34) 10/26/16 06:40 RDW 14.3 % (13.2-15.2) 10/26/16 06:40 Plt Count 375 K/mm3 (140-440) 10/26/16 06:40 Lymph % (Auto) 14.4 % (13.4-35.0) 10/26/16 06:40 [place] % (Auto) 6.7 % (0.0-7.3) 10/26/16 06:40 Eos % (Auto) 1.5 % (0.0-4.3) 10/26/16 06:40 Baso % (Auto) 0.5 % (0.0-1.8) 10/26/16 06:40 Lymph # 2.5 K/mm3 (1.2-5.4) 10/26/16 06:40 [place] # 1.1 K/mm3 (0.0-0.8) H 10/26/16 06:40 Eos # 0.2 K/mm3 (0.0-0.4) 10/26/16 06:40 Baso # 0.1 K/mm3 (0.0-0.1) 10/26/16 06:40 Add Manual Diff Complete 10/24/16 05:08 Total Counted 100 10/24/16 05:08 Seg Neutrophils % 76.9 % (40.0-70.0) H 10/26/16 06:40 Seg Neuts % (Manual) 79.0 % (40.0-70.0) H 10/24/16 05:08 Band Neutrophils % 0 % 10/24/16 05:08 Lymphocytes % (Manual) 12.0 % (13.4-35.0) L 10/24/16 05:08 Reactive Lymphs % (Man) 0 % 10/24/16 05:08 Monocytes % (Manual) 6.0 % (0.0-7.3) 10/24/16 05:08 Eosinophils % (Manual) 1.0 % (0.0-4.3) 10/24/16 05:08 Basophils % (Manual) 0 % (0.0-1.8) 10/24/16 05:08 Metamyelocytes % 0 % 10/24/16 05:08 Myelocytes % 1.0 % 10/24/16 05:08 Promyelocytes % 1.0 % 10/24/16 05:08 Blast Cells % 0 % 10/24/16 05:08 Nucleated RBC % Not Reportable 10/24/16 05:08 Seg Neutrophils # 13.2 K/mm3 (1.8-7.7) H 10/26/16 06:40 Seg Neutrophils # Man 16.0 K/mm3 (1.8-7.7) H 10/24/16 05:08 Band Neutrophils # 0.0 K/mm3 10/24/16 05:08 Lymphocytes # (Manual) 2.4 K/mm3 (1.2-5.4) 10/24/16 05:08 Abs React Lymphs (Man) 0.0 K/mm3 10/24/16 05:08 Monocytes # (Manual) 1.2 K/mm3 (0.0-0.8) H 10/24/16 05:08 Eosinophils # (Manual) 0.2 K/mm3 (0.0-0.4) 10/24/16 05:08 Basophils # (Manual) 0.0 K/mm3 (0.0-0.1) 10/24/16 05:08 Metamyelocytes # 0.0 K/mm3 10/24/16 05:08 Myelocytes # 0.2 K/mm3 10/24/16 05:08 Promyelocytes # 0.2 K/mm3 10/24/16 05:08 Blast Cells # 0.0 K/mm3 10/24/16 05:08 Pathologist Review 10/24/16 05:08 WBC Morphology Not Reportable 10/24/16 05:08 Hypersegmented Neuts Not Reportable 10/24/16 05:08 Hyposegmented Neuts Not Reportable 10/24/16 05:08 Hypogranular Neuts Not Reportable 10/24/16 05:08 Smudge Cells Not Reportable 10/24/16 05:08 Toxic Granulation Not Reportable 10/24/16 05:08 Toxic Vacuolation Not Reportable 10/24/16 05:08 Dohle Bodies Not Reportable 10/24/16 05:08 Pelger-Huet Anomaly Not Reportable 10/24/16 05:08 Mariana Rods Not Reportable 10/24/16 05:08 Platelet Estimate Appears normal 10/24/16 05:08 Clumped Platelets Not Reportable 10/24/16 05:08 Plt Clumps, EDTA Not Reportable 10/24/16 05:08 Large Platelets Not Reportable 10/24/16 05:08 Giant Platelets Not Reportable 10/24/16 05:08 Platelet Satelliting Not Reportable 10/24/16 05:08 Plt Morphology Comment Not Reportable 10/24/16 05:08 RBC Morphology Not Reportable 10/24/16 05:08 Dimorphic RBCs Not Reportable 10/24/16 05:08 Polychromasia Not Reportable 10/24/16 05:08 Hypochromasia Not Reportable 10/24/16 05:08 Poikilocytosis Not Reportable 10/24/16 05:08 Anisocytosis 1+ 10/24/16 05:08 Microcytosis Not Reportable 10/24/16 05:08 Macrocytosis Not Reportable 10/24/16 05:08 Spherocytes Not Reportable 10/24/16 05:08 Pappenheimer Bodies Not Reportable 10/24/16 05:08 Sickle Cells Not Reportable 10/24/16 05:08 Target Cells Not Reportable 10/24/16 05:08 Tear Drop Cells Not Reportable 10/24/16 05:08 Ovalocytes Not Reportable 10/24/16 05:08 Helmet Cells Not Reportable 10/24/16 05:08 [place] Bodies Not Reportable 10/24/16 05:08 [place] Rings Not Reportable 10/24/16 05:08 [place] Cells Not Reportable 10/24/16 05:08 Bite Cells Not Reportable 10/24/16 05:08 Crenated Cell Not Reportable 10/24/16 05:08 Elliptocytes Not Reportable 10/24/16 05:08 Acanthocytes (Spur) Not Reportable 10/24/16 05:08 Rouleaux Not Reportable 10/24/16 05:08 Hemoglobin C Crystals Not Reportable 10/24/16 05:08 Schistocytes Not Reportable 10/24/16 05:08 Malaria parasites Not Reportable 10/24/16 05:08 ESR > 140.0 mm/Hr (0-20) 10/23/16 16:55 [place] Bodies Not Reportable 10/24/16 05:08 Hem Pathologist Commnt Sent to pathology 10/24/16 05:08 POC ABG pH 7.330 (7.35-7.45) L 10/22/16 12:24 POC ABG pCO2 21.8 (35-45) L 10/22/16 12:24 POC ABG pO2 48 (80-105) L 10/22/16 12:24 POC ABG HCO3 11.5 10/22/16 12:24 POC ABG Total CO2 12 10/22/16 12:24 POC ABG O2 Sat 82 10/22/16 12:24 POC ABG Base Excess -14 10/22/16 12:24 FiO2 21 % 10/22/16 12:24 Sodium 138 mmol/L (137-145) 10/25/16 05:18 Potassium 4.1 mmol/L (3.6-5.0) 10/25/16 05:18 Chloride 102.4 mmol/L (98-107) 10/25/16 05:18 Carbon Dioxide 25 mmol/L (22-30) 10/25/16 05:18 Anion Gap 15 mmol/L 10/25/16 05:18 BUN 18 mg/dL (7-17) H 10/25/16 05:18 Creatinine 0.8 mg/dL (0.7-1.2) 10/25/16 05:18 Estimated GFR > 60 ml/min 10/25/16 05:18 BUN/Creatinine Ratio 22.50 % 10/25/16 05:18 Glucose 83 mg/dL (65-100) 10/25/16 05:18 Lactic Acid 2.6 mmol/L (0.7-2.0) H* 10/22/16 10:39 Calcium 7.3 mg/dL (8.4-10.2) L 10/25/16 05:18 Magnesium 1.5 mg/dL (1.7-2.3) L 10/26/16 06:40 Iron 19 ug/dL (37-170) L 10/22/16 16:37 TIBC 119 mcg/dL (250-450) L 10/22/16 16:37 Ferritin 664.4 ng/mL (13.0-400.0) H 10/22/16 16:37 Total Bilirubin 0.5 mg/dL (0.1-1.2) 10/21/16 04:59 Direct Bilirubin 0.4 mg/dL (0-0.2) H 10/19/16 20:51 Indirect Bilirubin 0.5 mg/dL 10/19/16 20:51 AST 21 units/L (5-40) 10/21/16 04:59 ALT 7 units/L (7-56) 10/21/16 04:59 Alkaline Phosphatase 85 units/L (35-129) 10/21/16 04:59 Ammonia 46.0 umol/L (25-60) 10/22/16 21:10 C-Reactive Protein 20.20 mg/dL (0.00-1.30) H 10/23/16 16:55 NT-Pro-B Natriuret Pep 965.1 pg/mL (0-900) H 10/19/16 20:51 Serum Total Protein 6.5 g/dL (6.1-8.1) 10/20/16 21:48 Total Protein 6.6 g/dL (6.3-8.2) D 10/21/16 04:59 Albumin 2.4 g/dL (3.9-5) L 10/21/16 04:59 Albumin/Globulin Ratio 0.6 % 10/21/16 04:59 Erncs-4-Yuqulommm 0.6 g/dL (0.2-0.3) H 10/20/16 21:48 Klhlr-8-Enyrticdq 1.1 g/dL (0.5-0.9) H 10/20/16 21:48 Beta Globulins 0.4 g/dL (0.2-0.5) 10/20/16 21:48 Gamma Globulins 1.6 g/dL (0.8-1.7) 10/20/16 21:48 Abnorm Protein Band 1 see below 10/20/16 21:48 PEP Interpretation see below H 10/20/16 21:48 Lipase 37 units/L (13-60) 10/19/16 20:51 Vitamin B12 941.5 pg/mL (211-911) H 10/22/16 16:37 RBC Folic Acid 848 ng/mL (>280) 10/22/16 16:37 Urine Color Yellow (Yellow) 10/20/16 01:18 Urine Turbidity Clear (Clear) 10/20/16 01:18 Urine pH 5.0 (5.0-7.0) 10/20/16 01:18 Ur Specific [place] 1.017 (1.003-1.030) 10/20/16 01:18 Urine Protein 30 mg/dl mg/dL (Negative) 10/20/16 01:18 Urine Glucose (UA) Neg mg/dL (Negative) 10/20/16 01:18 Urine Ketones Neg mg/dL (Negative) 10/20/16 01:18 Urine Blood Neg (Negative) 10/20/16 01:18 Urine Nitrite Neg (Negative) 10/20/16 01:18 Urine Bilirubin Neg (Negative) 10/20/16 01:18 Urine Urobilinogen < 2.0 mg/dL (<2.0) 10/20/16 01:18 Ur Leukocyte Esterase Neg (Negative) 10/20/16 01:18 Urine WBC (Auto) < 1.0 /HPF (0.0-6.0) 10/20/16 01:18 Urine RBC (Auto) 4.0 /HPF (0.0-6.0) 10/20/16 01:18 U Epithel Cells (Auto) 1.0 /HPF (0-13.0) 10/20/16 01:18 Amorphous Crystals 2+ 10/20/16 01:18 Hyaline Casts 3 /LPF 10/20/16 01:18 Granular Casts 5 /LPF 10/20/16 01:18 Urine Mucus Few /HPF 10/20/16 01:18 Urine Osmolality 462 Mosm/kg 10/21/16 07:50 Urine Creatinine 105.8 mg/dL (0.1-20.0) H 10/21/16 07:50 Protein/Creatinin Ratio 0.46 10/21/16 07:50 Urine Sodium 19 mEq/L 10/21/16 07:50 Urine Chloride 39.4 mEq/L (110-250) L 10/21/16 07:50 Urine Total Protein 48 mg/dL (5-11.8) H 10/21/16 07:50 YURI Screen Negative (Negative) 10/20/16 21:48 Proteinase 3 (PR3) Ab <1.0 AI (<1.0) 10/20/16 21:48 Myeloperoxidase Ab <1.0 AI (<1.0) 10/20/16 21:48 Complement C3 123 mg/dL (90-180) 10/20/16 21:48 Complement C4 37 mg/dL (16-47) 10/20/16 21:48 Hepatitis A IgM Ab Non-reactive (NonReactive) 10/20/16 21:48 Hep Bs Antigen Non-reactive (Negative) 10/20/16 21:48 Hep B Core IgM Ab Non-reactive (NonReactive) 10/20/16 21:48 Hepatitis C Antibody Reactive (NonReactive) 10/20/16 21:48 Hepatitis C Genotype 1a 10/20/16 21:48 HIV 1&2 Antibody Rapid Non react (Non React) 10/25/16 21:27 HIV P24 Antigen Non react (Non React) 10/25/16 21:27 Blood Type B POSITIVE 10/24/16 09:06 Antibody Screen Negative 10/24/16 09:06 Crossmatch See Detail 10/24/16 09:06
--- NOTE | 2016-10-26 20:44 | Progress Note ---
Subjective Date of service: 10/26/16 Principal diagnosis: Cirrhosis Interval history: Patient has no new complaints. PHYSICAL EXAM VS - Afebrile chest - good air entry cvs - s1s2 abd - bs + LABS - Reviewed. See lab section CT chest - showed multiple nodularities. CT abd - thicken portion of the colon hiv - negative ASSESSMENT 1. Pneumonia 2. hepatitis c 3. hypokalemia 4. acute kidney failure. 5. Leukocytosis - resolving RECOMMENDATION 1. awaits bronch. 2. continue current abx 4. GI evaluation 3. lucy Objective - Constitutional Vitals: Vital Signs Temp Pulse Resp BP Pulse Ox 98.3 F 90 18 150/94 95 10/26/16 17:00 10/26/16 17:00 10/26/16 17:00 10/26/16 17:00 10/26/16 19:48 Temperature -Last 24 Hours Temperature 98.3 F Temperature 97.6 F Temperature 98.1 F - Labs CBC & Chem 7: 10/26/16 06:40 10/25/16 05:18 Labs: Abnormal lab results 10/26/16 10/26/16 Range/Units 06:40 06:40 WBC 17.2 H (4.5-11.0) K/mm3 RBC 3.01 L (3.65-5.03) M/mm3 Hgb 8.7 L (10.1-14.3) gm/dl Hct 26.7 L (30.3-42.9) % [place] # 1.1 H (0.0-0.8) K/mm3 Seg Neutrophils % 76.9 H (40.0-70.0) % Seg Neutrophils # 13.2 H (1.8-7.7) K/mm3 Magnesium 1.5 L (1.7-2.3) mg/dL
[2016-10-27] MEDS: DUONEB 0.5 MG-3 MG/3 ML SOLN IH SCH ×3 (07:34→19:44)
--- NOTE | 2016-10-27 08:56 | Progress Note ---
Assessment and Plan Assessment and plan: Patient is a 56-year-old woman with a history of major depressive disorder, hepatitis C with cirrhosis and pancreatitis who presents with worsening constant fatigue x 2 weeks, body aches, decrease appetite nausea without vomiting and abdominal discomfort. She also complained of upper respiratory symptoms. In the ER she had have white count of 26.1, sodium 126 and creatinine 5.3. Acute renal failure, (ATN vs vasomotor nephropathy) -renal ultrasound showed medical renal disease -Nephrology following - renal function significantly improved with IV fluid - avoid nephrotoxins Acute hypoxic respiratory failure - suspected Pulmonary edema, CXR clear, VQ scan did not show any PE - Likely from IV fluid hydration and hypoalbuminemia - stopped iv fluid - cont supplimental O2 and nebulizer breathing treatment chest pain r/o ACS - will trend troponin, EKG - CT was negative for PE - 2d echo Acute toxic metabolic encephalopathy -Multifactorial - uemia/hyperammonemia/electrolytes abnormalities/? infection -Treat underlying conditions -Improved SIRS: -CT chest with patchy infiltrates bilat; HIV status checked to r/o PCP pneumonia (negative) -On admission started on Rocephin empirically and ID continued it -WBC trended down, but still elevated, inflam markers elevated -Pulmonary consulted and plans for bronchoscopy on Saturday Upper respiratory infection: -Treat symptomatically and continue Rocephin Anemia, Normocytic ; -Likely secondary to combination of anemia of chronic disease and iron efficiency; stool occult blood negative -B12 and folate within normal limits -Even though stool occult blood negative, she may benefit from outpatient GI evaluation with possible EGD/colonoscopy given her status and age -S/p 1 unit PRBC -Start iron supplement - cont to Monitor H&H Electrolyte abnormalities -Hyponatremia - resolved -Hypokalemia - resolved -Hypomagnesemia - continue to replete and recheck daily -Moderate to severe malnutrition; dietary consult Metabolic acidosis; - likely from renal failure, on NaHCO3 fluid Hyperammonemia: Treated with lactulose, cont to trend h/o Hepatitis C: GI following, abdominal US did not show any sign of cirrhosis Alcohol abuse: will place her on CIWA protocol DVT prophylaxis: will place on SCD, no heparin as H and H dropping History Interval history: Patient seen and examined. Medical records and medication list reviewed. No acute event overnight noted by the RN. She c/o pleuratic chest pain Discussed plan of care at bedside with patient Hospitalist Physical - Physical exam Narrative exam: GENERAL: -[place] female Malnourished appearing older than her stated age, lying on bed appeared to be in mild discomfort. HEENT: Normocephalic. Atraumatic. No conjunctival congestion or icterus. Patient has moist mucous membranes. NECK: Supple. Trachea midline. CHEST/LUNGS: Coarse breath sounds auscultated bilaterally, breathing nonlabored. No wheezes crackles or rhonchi. HEART/CARDIOVASCULAR: Regular in rate and rhythm. S1 and S2 positive. ABDOMEN: Abdomen is soft, nontender. Patient has normal bowel sounds. SKIN: There is no rash. Warm and dry. NEURO: No focal motor deficit. Follows command. MUSCULOSKELETAL: No joint effusion or tenderness. EXTRIMITY: No edema, no cyanosis or clubbing. PSYCH: Cooperative. - Constitutional Vitals: Temp Pulse Resp BP Pulse Ox 99.2 F 106 H 18 137/87 97 10/27/16 00:00 10/27/16 07:25 10/27/16 07:25 10/27/16 00:00 10/26/16 22:07 General appearance: Present: no acute distress Results - Labs CBC & Chem 7: 10/26/16 06:40 10/25/16 05:18 Labs: Laboratory Last Values WBC 17.2 K/mm3 (4.5-11.0) H 10/26/16 06:40 RBC 3.01 M/mm3 (3.65-5.03) L 10/26/16 06:40 Hgb 8.7 gm/dl (10.1-14.3) L 10/26/16 06:40 Hct 26.7 % (30.3-42.9) L 10/26/16 06:40 MCV 89 fl (79-97) 10/26/16 06:40 MCH 29 pg (28-32) 10/26/16 06:40 MCHC 33 % (30-34) 10/26/16 06:40 RDW 14.3 % (13.2-15.2) 10/26/16 06:40 Plt Count 375 K/mm3 (140-440) 10/26/16 06:40 Lymph % (Auto) 14.4 % (13.4-35.0) 10/26/16 06:40 [place] % (Auto) 6.7 % (0.0-7.3) 10/26/16 06:40 Eos % (Auto) 1.5 % (0.0-4.3) 10/26/16 06:40 Baso % (Auto) 0.5 % (0.0-1.8) 10/26/16 06:40 Lymph # 2.5 K/mm3 (1.2-5.4) 10/26/16 06:40 [place] # 1.1 K/mm3 (0.0-0.8) H 10/26/16 06:40 Eos # 0.2 K/mm3 (0.0-0.4) 10/26/16 06:40 Baso # 0.1 K/mm3 (0.0-0.1) 10/26/16 06:40 Add Manual Diff Complete 10/24/16 05:08 Total Counted 100 10/24/16 05:08 Seg Neutrophils % 76.9 % (40.0-70.0) H 10/26/16 06:40 Seg Neuts % (Manual) 79.0 % (40.0-70.0) H 10/24/16 05:08 Band Neutrophils % 0 % 10/24/16 05:08 Lymphocytes % (Manual) 12.0 % (13.4-35.0) L 10/24/16 05:08 Reactive Lymphs % (Man) 0 % 10/24/16 05:08 Monocytes % (Manual) 6.0 % (0.0-7.3) 10/24/16 05:08 Eosinophils % (Manual) 1.0 % (0.0-4.3) 10/24/16 05:08 Basophils % (Manual) 0 % (0.0-1.8) 10/24/16 05:08 Metamyelocytes % 0 % 10/24/16 05:08 Myelocytes % 1.0 % 10/24/16 05:08 Promyelocytes % 1.0 % 10/24/16 05:08 Blast Cells % 0 % 10/24/16 05:08 Nucleated RBC % Not Reportable 10/24/16 05:08 Seg Neutrophils # 13.2 K/mm3 (1.8-7.7) H 10/26/16 06:40 Seg Neutrophils # Man 16.0 K/mm3 (1.8-7.7) H 10/24/16 05:08 Band Neutrophils # 0.0 K/mm3 10/24/16 05:08 Lymphocytes # (Manual) 2.4 K/mm3 (1.2-5.4) 10/24/16 05:08 Abs React Lymphs (Man) 0.0 K/mm3 10/24/16 05:08 Monocytes # (Manual) 1.2 K/mm3 (0.0-0.8) H 10/24/16 05:08 Eosinophils # (Manual) 0.2 K/mm3 (0.0-0.4) 10/24/16 05:08 Basophils # (Manual) 0.0 K/mm3 (0.0-0.1) 10/24/16 05:08 Metamyelocytes # 0.0 K/mm3 10/24/16 05:08 Myelocytes # 0.2 K/mm3 10/24/16 05:08 Promyelocytes # 0.2 K/mm3 10/24/16 05:08 Blast Cells # 0.0 K/mm3 10/24/16 05:08 Pathologist Review 10/24/16 05:08 WBC Morphology Not Reportable 10/24/16 05:08 Hypersegmented Neuts Not Reportable 10/24/16 05:08 Hyposegmented Neuts Not Reportable 10/24/16 05:08 Hypogranular Neuts Not Reportable 10/24/16 05:08 Smudge Cells Not Reportable 10/24/16 05:08 Toxic Granulation Not Reportable 10/24/16 05:08 Toxic Vacuolation Not Reportable 10/24/16 05:08 Dohle Bodies Not Reportable 10/24/16 05:08 Pelger-Huet Anomaly Not Reportable 10/24/16 05:08 Mariana Rods Not Reportable 10/24/16 05:08 Platelet Estimate Appears normal 10/24/16 05:08 Clumped Platelets Not Reportable 10/24/16 05:08 Plt Clumps, EDTA Not Reportable 10/24/16 05:08 Large Platelets Not Reportable 10/24/16 05:08 Giant Platelets Not Reportable 10/24/16 05:08 Platelet Satelliting Not Reportable 10/24/16 05:08 Plt Morphology Comment Not Reportable 10/24/16 05:08 RBC Morphology Not Reportable 10/24/16 05:08 Dimorphic RBCs Not Reportable 10/24/16 05:08 Polychromasia Not Reportable 10/24/16 05:08 Hypochromasia Not Reportable 10/24/16 05:08 Poikilocytosis Not Reportable 10/24/16 05:08 Anisocytosis 1+ 10/24/16 05:08 Microcytosis Not Reportable 10/24/16 05:08 Macrocytosis Not Reportable 10/24/16 05:08 Spherocytes Not Reportable 10/24/16 05:08 Pappenheimer Bodies Not Reportable 10/24/16 05:08 Sickle Cells Not Reportable 10/24/16 05:08 Target Cells Not Reportable 10/24/16 05:08 Tear Drop Cells Not Reportable 10/24/16 05:08 Ovalocytes Not Reportable 10/24/16 05:08 Helmet Cells Not Reportable 10/24/16 05:08 [place] Bodies Not Reportable 10/24/16 05:08 [place] Rings Not Reportable 10/24/16 05:08 [place] Cells Not Reportable 10/24/16 05:08 Bite Cells Not Reportable 10/24/16 05:08 Crenated Cell Not Reportable 10/24/16 05:08 Elliptocytes Not Reportable 10/24/16 05:08 Acanthocytes (Spur) Not Reportable 10/24/16 05:08 Rouleaux Not Reportable 10/24/16 05:08 Hemoglobin C Crystals Not Reportable 10/24/16 05:08 Schistocytes Not Reportable 10/24/16 05:08 Malaria parasites Not Reportable 10/24/16 05:08 ESR > 140.0 mm/Hr (0-20) 10/23/16 16:55 [place] Bodies Not Reportable 10/24/16 05:08 Hem Pathologist Commnt Sent to pathology 10/24/16 05:08 POC ABG pH 7.330 (7.35-7.45) L 10/22/16 12:24 POC ABG pCO2 21.8 (35-45) L 10/22/16 12:24 POC ABG pO2 48 (80-105) L 10/22/16 12:24 POC ABG HCO3 11.5 10/22/16 12:24 POC ABG Total CO2 12 10/22/16 12:24 POC ABG O2 Sat 82 10/22/16 12:24 POC ABG Base Excess -14 10/22/16 12:24 FiO2 21 % 10/22/16 12:24 Sodium 138 mmol/L (137-145) 10/25/16 05:18 Potassium 4.1 mmol/L (3.6-5.0) 10/25/16 05:18 Chloride 102.4 mmol/L (98-107) 10/25/16 05:18 Carbon Dioxide 25 mmol/L (22-30) 10/25/16 05:18 Anion Gap 15 mmol/L 10/25/16 05:18 BUN 18 mg/dL (7-17) H 10/25/16 05:18 Creatinine 0.8 mg/dL (0.7-1.2) 10/25/16 05:18 Estimated GFR > 60 ml/min 10/25/16 05:18 BUN/Creatinine Ratio 22.50 % 10/25/16 05:18 Glucose 83 mg/dL (65-100) 10/25/16 05:18 Lactic Acid 2.6 mmol/L (0.7-2.0) H* 10/22/16 10:39 Calcium 7.3 mg/dL (8.4-10.2) L 10/25/16 05:18 Magnesium 1.5 mg/dL (1.7-2.3) L 10/26/16 06:40 Iron 19 ug/dL (37-170) L 10/22/16 16:37 TIBC 119 mcg/dL (250-450) L 10/22/16 16:37 Ferritin 664.4 ng/mL (13.0-400.0) H 10/22/16 16:37 Total Bilirubin 0.5 mg/dL (0.1-1.2) 10/21/16 04:59 Direct Bilirubin 0.4 mg/dL (0-0.2) H 10/19/16 20:51 Indirect Bilirubin 0.5 mg/dL 10/19/16 20:51 AST 21 units/L (5-40) 10/21/16 04:59 ALT 7 units/L (7-56) 10/21/16 04:59 Alkaline Phosphatase 85 units/L (35-129) 10/21/16 04:59 Ammonia 46.0 umol/L (25-60) 10/22/16 21:10 C-Reactive Protein 20.20 mg/dL (0.00-1.30) H 10/23/16 16:55 NT-Pro-B Natriuret Pep 965.1 pg/mL (0-900) H 10/19/16 20:51 Serum Total Protein 6.5 g/dL (6.1-8.1) 10/20/16 21:48 Total Protein 6.6 g/dL (6.3-8.2) D 10/21/16 04:59 Albumin 2.4 g/dL (3.9-5) L 10/21/16 04:59 Albumin/Globulin Ratio 0.6 % 10/21/16 04:59 Yjktj-9-Ksxidmaov 0.6 g/dL (0.2-0.3) H 10/20/16 21:48 Trrvb-9-Mlmigkihx 1.1 g/dL (0.5-0.9) H 10/20/16 21:48 Beta Globulins 0.4 g/dL (0.2-0.5) 10/20/16 21:48 Gamma Globulins 1.6 g/dL (0.8-1.7) 10/20/16 21:48 Abnorm Protein Band 1 see below 10/20/16 21:48 PEP Interpretation see below H 10/20/16 21:48 Lipase 37 units/L (13-60) 10/19/16 20:51 Vitamin B12 941.5 pg/mL (211-911) H 10/22/16 16:37 RBC Folic Acid 848 ng/mL (>280) 10/22/16 16:37 Urine Color Yellow (Yellow) 10/20/16 01:18 Urine Turbidity Clear (Clear) 10/20/16 01:18 Urine pH 5.0 (5.0-7.0) 10/20/16 01:18 Ur Specific [place] 1.017 (1.003-1.030) 10/20/16 01:18 Urine Protein 30 mg/dl mg/dL (Negative) 10/20/16 01:18 Urine Glucose (UA) Neg mg/dL (Negative) 10/20/16 01:18 Urine Ketones Neg mg/dL (Negative) 10/20/16 01:18 Urine Blood Neg (Negative) 10/20/16 01:18 Urine Nitrite Neg (Negative) 10/20/16 01:18 Urine Bilirubin Neg (Negative) 10/20/16 01:18 Urine Urobilinogen < 2.0 mg/dL (<2.0) 10/20/16 01:18 Ur Leukocyte Esterase Neg (Negative) 10/20/16 01:18 Urine WBC (Auto) < 1.0 /HPF (0.0-6.0) 10/20/16 01:18 Urine RBC (Auto) 4.0 /HPF (0.0-6.0) 10/20/16 01:18 U Epithel Cells (Auto) 1.0 /HPF (0-13.0) 10/20/16 01:18 Amorphous Crystals 2+ 10/20/16 01:18 Hyaline Casts 3 /LPF 10/20/16 01:18 Granular Casts 5 /LPF 10/20/16 01:18 Urine Mucus Few /HPF 10/20/16 01:18 Urine Osmolality 462 Mosm/kg 10/21/16 07:50 Urine Creatinine 105.8 mg/dL (0.1-20.0) H 10/21/16 07:50 Protein/Creatinin Ratio 0.46 10/21/16 07:50 Urine Sodium 19 mEq/L 10/21/16 07:50 Urine Chloride 39.4 mEq/L (110-250) L 10/21/16 07:50 Urine Total Protein 48 mg/dL (5-11.8) H 10/21/16 07:50 YURI Screen Negative (Negative) 10/20/16 21:48 Proteinase 3 (PR3) Ab <1.0 AI (<1.0) 10/20/16 21:48 Myeloperoxidase Ab <1.0 AI (<1.0) 10/20/16 21:48 Complement C3 123 mg/dL (90-180) 10/20/16 21:48 Complement C4 37 mg/dL (16-47) 10/20/16 21:48 Hepatitis A IgM Ab Non-reactive (NonReactive) 10/20/16 21:48 Hep Bs Antigen Non-reactive (Negative) 10/20/16 21:48 Hep B Core IgM Ab Non-reactive (NonReactive) 10/20/16 21:48 Hepatitis C Antibody Reactive (NonReactive) 10/20/16 21:48 Hepatitis C Genotype 1a 10/20/16 21:48 HIV 1&2 Antibody Rapid Non react (Non React) 10/25/16 21:27 HIV P24 Antigen Non react (Non React) 10/25/16 21:27 Blood Type B POSITIVE 10/24/16 09:06 Antibody Screen Negative 10/24/16 09:06 Crossmatch See Detail 10/24/16 09:06 - Imaging and Cardiology Chest x-ray: report reviewed CT scan - chest: report reviewed
[2016-10-27] MEDS: ROCEPHIN/NS 1 GM/50 ML 1 GM/50 ML BAG IV SCH (09:39)
[2016-10-27] MEDS: MORPHINE IV PRN ×2 (09:40→19:09)
[2016-10-27] MEDS: SODIUM BICARBONATE PO SCH ×3 (09:40→20:51)
[2016-10-27] MEDS: PROTONIX PO SCH (09:48)
[2016-10-27] MEDS: ZOLOFT PO SCH (09:53)
[2016-10-27] MEDS ORDERED: MAGNESIUM SULFATE IV ONE (13:03)
[2016-10-27] MEDS ORDERED: MAGNESIUM SULFATE 1 GM in NACL 0.9% 50 ML IV ONE (15:00)
[2016-10-27] MEDS: ZOFRAN IV PRN (19:23)
--- NOTE | 2016-10-27 19:29 | Progress Note ---
Subjective Date of service: 10/27/16 Principal diagnosis: Cirrhosis Interval history: Patient has no new complaints. PHYSICAL EXAM VS - Afebrile chest - good air entry cvs - s1s2 abd - bs + LABS - Reviewed. See lab section CT chest - showed multiple nodularities. CT abd - thicken portion of the colon hiv - negative ASSESSMENT 1. Pneumonia 2. hepatitis c 3. hypokalemia 4. acute kidney failure. 5. Leukocytosis RECOMMENDATION 1. awaits bronch. 2. continue current abx Objective - Constitutional Vitals: Vital Signs Temp Pulse Resp BP Pulse Ox 97.6 F 116 H 20 134/86 97 10/27/16 16:30 10/27/16 16:30 10/27/16 16:30 10/27/16 16:30 10/27/16 16:30 Temperature -Last 24 Hours Temperature 97.6 F Temperature 98.1 F Temperature 99.2 F Temperature 98.6 F - Labs CBC & Chem 7: 10/26/16 06:40 10/25/16 05:18
[2016-10-28 06:37] LABS: Basophils % (Auto) 0.6 % (0.0-1.8); Eosinophils % (Auto) 0.9 % (0.0-4.3); Hematocrit 25.9 % (30.3-42.9); Hemoglobin 8.4 gm/dl (10.1-14.3); Mean Corpuscular HGB Conc 33 % (30-34); Mean Corpuscular Hemoglobin 29 pg (28-32); Mean Corpuscular Volume 89 fl (79-97); Platelet Count 362 K/mm3 (140-440); Red Blood Count 2.91 M/mm3 (3.65-5.03); White Blood Count 15.2 K/mm3 (4.5-11.0)
[2016-10-28 06:55] LABS: Blood Urea Nitrogen 19 mg/dL (7-17); Carbon Dioxide 28 mmol/L (22-30); Glucose 94 mg/dL (65-100)
[2016-10-28 06:56] LABS: Anion Gap 13 mmol/L; Calcium 7.8 mg/dL (8.4-10.2); Chloride 102.4 mmol/L (98-107); Potassium 4.5 mmol/L (3.6-5.0); Sodium 139 mmol/L (137-145)
[2016-10-28] MEDS: MORPHINE IV PRN ×4 (07:14→22:07)
[2016-10-28] MEDS: DUONEB 0.5 MG-3 MG/3 ML SOLN IH SCH ×3 (08:43→21:23)
[2016-10-28] MEDS: SODIUM BICARBONATE PO SCH ×3 (09:14→22:07)
[2016-10-28] MEDS: ROCEPHIN/NS 1 GM/50 ML 1 GM/50 ML BAG IV SCH (09:15)
[2016-10-28] MEDS: PROTONIX PO SCH (09:15)
[2016-10-28] MEDS: ZOLOFT PO SCH (09:17)
--- NOTE | 2016-10-28 14:13 | Progress Note ---
Assessment and Plan 56 y/o female with abnormal CT of chest 1. Agree, patient would benefit from bronch. Biopsy would be difficult blindly as she is high risk for pneumo with cystic lung disease and lack of disease seen on the periphery. 2. Called on Saturday to attempt to place on schedule for Saturday, but saturday schedule is full. Earliest now would be Saturday. Will discuss with my partner who will perform procedure Subjective Date of service: 10/28/16 Principal diagnosis: Cirrhosis Interval history: No complaints. Clinical status is stable Objective Vital Signs - 12hr 10/28/16 10/28/16 10/28/16 03:00 08:40 08:43 Temperature 98.2 F Pulse Rate [ 109 H Anterior Bilateral Throughout] Pulse Rate [ 100 H Left Radial] Pulse Rate [ 104 H Right Dorsalis Pedis] Respiratory 20 18 Rate Respiratory 18 Rate [Anterior Bilateral Throughout] Blood Pressure 120/78 [Left Arm] O2 Sat by Pulse 93 98 Oximetry 10/28/16 10/28/16 10/28/16 08:46 08:53 14:00 Temperature Pulse Rate [ 101 H 100 H Anterior Bilateral Throughout] Pulse Rate [ Left Radial] Pulse Rate [ Right Dorsalis Pedis] Respiratory Rate Respiratory 20 20 Rate [Anterior Bilateral Throughout] Blood Pressure [Left Arm] O2 Sat by Pulse 97 100 Oximetry 10/28/16 14:09 Temperature Pulse Rate [ 102 H Anterior Bilateral Throughout] Pulse Rate [ Left Radial] Pulse Rate [ Right Dorsalis Pedis] Respiratory Rate Respiratory 22 Rate [Anterior Bilateral Throughout] Blood Pressure [Left Arm] O2 Sat by Pulse Oximetry Constitutional: no acute distress, alert, other (ill appearing female) Eyes: icteric ENT: oropharynx dry Neck: supple Effort: normal Ascultation: Bilateral: diminished breath sounds, rhonchi Percussion: Bilateral: not dull CBC and BMP: 10/28/16 06:03 10/28/16 06:03 ABG, PT/INR, D-dimer: ABG POC ABG pH 7.330 (7.35-7.45) L 10/22/16 12:24 POC ABG pCO2 21.8 (35-45) L 10/22/16 12:24 POC ABG pO2 48 (80-105) L 10/22/16 12:24 POC ABG HCO3 11.5 10/22/16 12:24 POC ABG Total CO2 12 10/22/16 12:24 POC ABG O2 Sat 82 10/22/16 12:24 Abnormal lab findings: Abnormal Labs 10/20/16 10/20/16 10/20/16 10:00 10:00 21:48 WBC 23.2 H RBC 3.19 L Hgb 9.0 L Hct 28.0 L Plt Count [place] # Seg Neutrophils % Seg Neuts % (Manual) 77.0 H Lymphocytes % (Manual) 8.0 L Monocytes % (Manual) 8.0 H Seg Neutrophils # Seg Neutrophils # Man 17.9 H Monocytes # (Manual) 1.9 H POC ABG pH POC ABG pCO2 POC ABG pO2 Sodium 133 L D Potassium 3.1 L Chloride Carbon Dioxide 17 L BUN 86 H Creatinine 4.2 H Glucose 105 H Lactic Acid Calcium Magnesium Iron TIBC Ferritin C-Reactive Protein Albumin 2.4 L Lbsle-8-Hucqahyoz 0.6 H Vqsjv-8-Nkcgqptfl 1.1 H PEP Interpretation see below H Vitamin B12 Urine Creatinine Urine Chloride Urine Total Protein Crossmatch 10/21/16 10/21/16 10/21/16 04:59 04:59 07:50 WBC 24.3 H RBC 2.94 L Hgb 8.6 L Hct 26.2 L Plt Count [place] # Seg Neutrophils % Seg Neuts % (Manual) Lymphocytes % (Manual) Monocytes % (Manual) Seg Neutrophils # Seg Neutrophils # Man Monocytes # (Manual) POC ABG pH POC ABG pCO2 POC ABG pO2 Sodium Potassium 3.4 L Chloride 110.2 H Carbon Dioxide 16 L BUN 65 H Creatinine 2.3 H Glucose Lactic Acid Calcium 8.0 L Magnesium Iron TIBC Ferritin C-Reactive Protein Albumin 2.4 L Sbdho-7-Qvqizfmrx Lzmju-4-Tgraevngx PEP Interpretation Vitamin B12 Urine Creatinine 105.8 H Urine Chloride 39.4 L Urine Total Protein 48 H Crossmatch 10/22/16 10/22/16 10/22/16 04:59 04:59 10:39 WBC 25.8 H RBC 2.64 L Hgb 7.4 L Hct 23.8 L Plt Count [place] # Seg Neutrophils % Seg Neuts % (Manual) 79.0 H Lymphocytes % (Manual) 6.0 L Monocytes % (Manual) 9.0 H Seg Neutrophils # Seg Neutrophils # Man 20.4 H Monocytes # (Manual) 2.3 H POC ABG pH POC ABG pCO2 POC ABG pO2 Sodium Potassium 2.9 L* Chloride 116.3 H Carbon Dioxide 12 L BUN 35 H Creatinine 1.3 H Glucose Lactic Acid 2.6 H* Calcium 7.3 L Magnesium Iron TIBC Ferritin C-Reactive Protein Albumin Gwall-9-Dpohnqlne Vkwws-2-Bsuiyvstt PEP Interpretation Vitamin B12 Urine Creatinine Urine Chloride Urine Total Protein Crossmatch 10/22/16 10/22/16 10/22/16 10:39 12:09 12:24 WBC RBC Hgb Hct Plt Count [place] # Seg Neutrophils % Seg Neuts % (Manual) Lymphocytes % (Manual) Monocytes % (Manual) Seg Neutrophils # Seg Neutrophils # Man Monocytes # (Manual) POC ABG pH 7.294 L 7.330 L POC ABG pCO2 24.1 L 21.8 L POC ABG pO2 36 L 48 L Sodium Potassium Chloride Carbon Dioxide BUN Creatinine Glucose Lactic Acid Calcium Magnesium 1.0 L Iron TIBC Ferritin C-Reactive Protein Albumin Klvzh-9-Ftonxnbeb Vbgsd-4-Gnauyztla PEP Interpretation Vitamin B12 Urine Creatinine Urine Chloride Urine Total Protein Crossmatch 10/22/16 10/22/16 10/22/16 16:37 16:37 16:37 WBC RBC Hgb Hct Plt Count [place] # Seg Neutrophils % Seg Neuts % (Manual) Lymphocytes % (Manual) Monocytes % (Manual) Seg Neutrophils # Seg Neutrophils # Man Monocytes # (Manual) POC ABG pH POC ABG pCO2 POC ABG pO2 Sodium Potassium Chloride Carbon Dioxide BUN Creatinine Glucose Lactic Acid Calcium Magnesium Iron 19 L TIBC 119 L Ferritin 664.4 H C-Reactive Protein Albumin Icyvf-0-Wchgftmcx Rgtxu-6-Pcpbxdtli PEP Interpretation Vitamin B12 941.5 H Urine Creatinine Urine Chloride Urine Total Protein Crossmatch 10/23/16 10/23/16 10/23/16 05:18 05:18 16:55 WBC 25.2 H RBC 2.95 L Hgb 8.4 L Hct 25.6 L Plt Count 457 H [place] # Seg Neutrophils % Seg Neuts % (Manual) 76.0 H Lymphocytes % (Manual) Monocytes % (Manual) Seg Neutrophils # Seg Neutrophils # Man 19.2 H Monocytes # (Manual) 1.5 H POC ABG pH POC ABG pCO2 POC ABG pO2 Sodium Potassium 2.9 L* Chloride Carbon Dioxide BUN 21 H Creatinine Glucose 122 H Lactic Acid Calcium 7.2 L Magnesium 1.0 L Iron TIBC Ferritin C-Reactive Protein 20.20 H Albumin Pstkt-9-Rilxmuinu Zjown-6-Sszdnydjq PEP Interpretation Vitamin B12 Urine Creatinine Urine Chloride Urine Total Protein Crossmatch 10/24/16 10/24/16 10/24/16 05:08 05:08 09:06 WBC 20.3 H RBC 2.39 L Hgb 6.8 L Hct 21.2 L Plt Count [place] # Seg Neutrophils % Seg Neuts % (Manual) 79.0 H Lymphocytes % (Manual) 12.0 L Monocytes % (Manual) Seg Neutrophils # Seg Neutrophils # Man 16.0 H Monocytes # (Manual) 1.2 H POC ABG pH POC ABG pCO2 POC ABG pO2 Sodium Potassium Chloride Carbon Dioxide BUN 21 H Creatinine Glucose Lactic Acid Calcium 6.8 L Magnesium 1.2 L Iron TIBC Ferritin C-Reactive Protein Albumin Nfsdr-4-Osqhmgnwv Zjptd-6-Dzlqcmzee PEP Interpretation Vitamin B12 Urine Creatinine Urine Chloride Urine Total Protein Crossmatch See Detail 10/25/16 10/25/16 10/26/16 05:18 05:18 06:40 WBC 16.1 H 17.2 H RBC 3.14 L 3.01 L Hgb 9.1 L 8.7 L Hct 27.6 L D 26.7 L Plt Count [place] # 1.1 H 1.1 H Seg Neutrophils % 76.6 H 76.9 H Seg Neuts % (Manual) Lymphocytes % (Manual) Monocytes % (Manual) Seg Neutrophils # 12.3 H 13.2 H Seg Neutrophils # Man Monocytes # (Manual) POC ABG pH POC ABG pCO2 POC ABG pO2 Sodium Potassium Chloride Carbon Dioxide BUN 18 H Creatinine Glucose Lactic Acid Calcium 7.3 L Magnesium 1.4 L Iron TIBC Ferritin C-Reactive Protein Albumin Utqef-5-Wsxgedmrp Gkxgt-7-Symrhnqqz PEP Interpretation Vitamin B12 Urine Creatinine Urine Chloride Urine Total Protein Crossmatch 10/26/16 10/28/16 10/28/16 06:40 06:03 06:03 WBC 15.2 H RBC 2.91 L Hgb 8.4 L Hct 25.9 L Plt Count [place] # 1.1 H Seg Neutrophils % 74.4 H Seg Neuts % (Manual) Lymphocytes % (Manual) Monocytes % (Manual) Seg Neutrophils # 11.3 H Seg Neutrophils # Man Monocytes # (Manual) POC ABG pH POC ABG pCO2 POC ABG pO2 Sodium Potassium Chloride Carbon Dioxide BUN 19 H Creatinine Glucose Lactic Acid Calcium 7.8 L Magnesium 1.5 L Iron TIBC Ferritin C-Reactive Protein Albumin Fqcze-6-Hhaiinqgl Qwtux-5-Zwwwftwix PEP Interpretation Vitamin B12 Urine Creatinine Urine Chloride Urine Total Protein Crossmatch
--- NOTE | 2016-10-28 16:14 | Progress Note ---
Assessment and Plan Patient is a 56-year-old woman with a history of major depressive disorder, hepatitis C and pancreatitis who presents with worsening constant fatigue x 2 weeks, body aches, decrease appetite nausea without vomiting and abdominal discomfort. She also complained of upper respiratory symptoms. In the ER she had have white count of 26.1, sodium 126 and creatinine 5.3. Acute renal failure, (ATN vs vasomotor nephropathy) -renal ultrasound showed medical renal disease -Nephrology following - renal function significantly improved with IV fluid - avoid nephrotoxins Acute hypoxic respiratory failure - suspected Pulmonary edema, CXR clear, VQ scan did not show any PE - Likely from IV fluid hydration and hypoalbuminemia - stopped iv fluid - cont supplimental O2 and nebulizer breathing treatment chest pain r/o ACS - Normal troponin, nonspecific EKG - CT was negative for PE - 2d echo pending Acute toxic metabolic encephalopathy -Multifactorial - uemia/hyperammonemia/electrolytes abnormalities/? infection -Treat underlying conditions -Improved Sepsis likley from b/l PNA: -CT chest with patchy infiltrates bilat; HIV status checked to r/o PCP pneumonia (negative) -On admission started on Rocephin empirically and ID continued it -WBC trended down, but still elevated, inflam markers elevated -Pulmonary consulted and plans for bronchoscopy tomorrow Upper respiratory infection: -Treat symptomatically and continue Rocephin Anemia, Normocytic ; -Likely secondary to combination of anemia of chronic disease and iron efficiency; stool occult blood negative -B12 and folate within normal limits -Even though stool occult blood negative, she may benefit from outpatient GI evaluation with possible EGD/colonoscopy given her status and age -S/p 1 unit PRBC -cont iron supplement - cont to Monitor H&H Electrolyte abnormalities -Hyponatremia - resolved -Hypokalemia - resolved -Hypomagnesemia - continue to replete and recheck daily -Moderate to severe malnutrition; dietary consult Metabolic acidosis; - likely from renal failure, on NaHCO3 fluid Hyperammonemia: Treated with lactulose, cont to trend h/o Hepatitis C: GI following, abdominal US did not show any sign of cirrhosis Alcohol abuse: placed on CIWA protocol, no sign of withdrawl, monitor clinially DVT prophylaxis: will place on SCD, no heparin as H and H dropping Subjective Date of service: 10/28/16 Principal diagnosis: Sepsis/PNA/alcohol abuse Interval history: Patient seen and examined. Medical records and medication list reviewed. No acute event overnight noted by the RN. She c/o pleuratic chest pain Discussed plan of care at bedside with patient Objective - Exam Narrative Exam: GENERAL: -[place] female Malnourished appearing older than her stated age, lying on bed appeared to be in mild discomfort. HEENT: Normocephalic. Atraumatic. No conjunctival congestion or icterus. Patient has moist mucous membranes. NECK: Supple. Trachea midline. CHEST/LUNGS: Coarse breath sounds auscultated bilaterally, breathing nonlabored. No wheezes crackles or rhonchi. HEART/CARDIOVASCULAR: Regular in rate and rhythm. S1 and S2 positive. ABDOMEN: Abdomen is soft, nontender. Patient has normal bowel sounds. SKIN: There is no rash. Warm and dry. NEURO: No focal motor deficit. Follows command. MUSCULOSKELETAL: No joint effusion or tenderness. EXTRIMITY: No edema, no cyanosis or clubbing. PSYCH: Cooperative. - Constitutional Vitals: Vital Signs - 12hr 10/28/16 10/28/16 10/28/16 08:40 08:43 08:46 Temperature 98.2 F Pulse Rate [ 109 H Anterior Bilateral Throughout] Pulse Rate [ 104 H Right Dorsalis Pedis] Respiratory 18 Rate Respiratory 18 Rate [Anterior Bilateral Throughout] Blood Pressure 120/78 [Left Arm] O2 Sat by Pulse 98 97 Oximetry 10/28/16 10/28/16 10/28/16 08:53 14:00 14:09 Temperature Pulse Rate [ 101 H 100 H 102 H Anterior Bilateral Throughout] Pulse Rate [ Right Dorsalis Pedis] Respiratory Rate Respiratory 20 20 22 Rate [Anterior Bilateral Throughout] Blood Pressure [Left Arm] O2 Sat by Pulse 100 Oximetry - Labs CBC & Chem 7: 10/28/16 06:03 10/28/16 06:03 Labs: Abnormal lab results 10/28/16 10/28/16 Range/Units 06:03 06:03 WBC 15.2 H (4.5-11.0) K/mm3 RBC 2.91 L (3.65-5.03) M/mm3 Hgb 8.4 L (10.1-14.3) gm/dl Hct 25.9 L (30.3-42.9) % [place] # 1.1 H (0.0-0.8) K/mm3 Seg Neutrophils % 74.4 H (40.0-70.0) % Seg Neutrophils # 11.3 H (1.8-7.7) K/mm3 BUN 19 H (7-17) mg/dL Calcium 7.8 L (8.4-10.2) mg/dL
--- NOTE | 2016-10-28 18:19 | Progress Note ---
Subjective Date of service: 10/28/16 Principal diagnosis: Cirrhosis Interval history: Patient has no new complaints. PHYSICAL EXAM VS - Afebrile chest - good air entry cvs - s1s2 abd - bs + LABS - Reviewed. See lab section CT chest - showed multiple nodularities. CT abd - thicken portion of the colon hiv - negative ASSESSMENT 1. Pneumonia 2. hepatitis c 3. hypokalemia 4. acute kidney failure. 5. Leukocytosis RECOMMENDATION 1. awaits bronch. 2. continue current abx 3. cbc in am Objective - Constitutional Vitals: Vital Signs Temp Pulse Resp BP Pulse Ox 98.2 F 96 H 20 120/78 100 10/28/16 08:40 10/28/16 16:08 10/28/16 16:08 10/28/16 08:40 10/28/16 14:00 Temperature -Last 24 Hours Temperature 98.2 F Temperature 98.4 F - Labs CBC & Chem 7: 10/28/16 06:03 10/28/16 06:03 Labs: Abnormal lab results 10/28/16 10/28/16 Range/Units 06:03 06:03 WBC 15.2 H (4.5-11.0) K/mm3 RBC 2.91 L (3.65-5.03) M/mm3 Hgb 8.4 L (10.1-14.3) gm/dl Hct 25.9 L (30.3-42.9) % [place] # 1.1 H (0.0-0.8) K/mm3 Seg Neutrophils % 74.4 H (40.0-70.0) % Seg Neutrophils # 11.3 H (1.8-7.7) K/mm3 BUN 19 H (7-17) mg/dL Calcium 7.8 L (8.4-10.2) mg/dL
[2016-10-28] MEDS: ZOFRAN IV PRN (19:30)
[2016-10-29] MEDS: MORPHINE IV PRN ×2 (04:13→09:31)
[2016-10-29 07:11] LABS: Eosinophils % (Auto) 0.9 % (0.0-4.3); Hematocrit 23.9 % (30.3-42.9); Hemoglobin 7.8 gm/dl (10.1-14.3); Mean Corpuscular HGB Conc 33 % (30-34); Mean Corpuscular Hemoglobin 29 pg (28-32); Mean Corpuscular Volume 90 fl (79-97); Platelet Count 348 K/mm3 (140-440); Red Blood Count 2.67 M/mm3 (3.65-5.03); Red Cell Distribution Width 14.3 % (13.2-15.2); White Blood Count 10.9 K/mm3 (4.5-11.0)
[2016-10-29] MEDS: SODIUM BICARBONATE PO SCH ×3 (08:00→20:20)
[2016-10-29] MEDS: ZOLOFT PO SCH (08:00)
[2016-10-29] MEDS: PROTONIX PO SCH (09:31)
[2016-10-29] MEDS: ROCEPHIN/NS 1 GM/50 ML 1 GM/50 ML BAG IV SCH (09:31)
[2016-10-29] MEDS: DUONEB 0.5 MG-3 MG/3 ML SOLN IH SCH ×3 (10:12→21:27)
--- NOTE | 2016-10-29 14:10 | Progress Note ---
Assessment and Plan Sepsis. Clinically improving. Most likely secondary to lower respiratory tract infection, pneumonia Interstitial/cystic lung disease changes. On my review of the CT scan, these are in the dependent areas and patchy throughout the lungs. Putting is consistent with early ILD/fibrosis in the context of apparent pneumonia/ aspiration. Of note, the [facility] and she was diagnosed of reflux disease, for which she had been taking medications. HIV and CVD inflammatory markers are negative so doubt PCP or rheumatoid lung at this point Hepatitis C Alcohol abuse. Risk factor for cardiac aspiration Recommendations Nothing by mouth after midnight for Broch tomorrow We'll try to schedule for bronchoscopy tomorrow if possible. If not then another option would be just to complete antibiotics and follow-up as an outpatient with HRCT SCL-70 Update ABGs Subjective Date of service: 10/29/16 Principal diagnosis: Sepsis/PNA/alcohol abuse Interval history: Some cough still noted. At times some yellow expectoration. No fever. Still with diffuse aches Objective Vital Signs - 12hr 10/29/16 10/29/16 10/29/16 07:00 10:12 10:17 Pulse Rate [ 77 Anterior Bilateral Throughout] Pulse Rate [ 77 Apical] Respiratory 18 Rate Respiratory 18 Rate [Anterior Bilateral Throughout] Blood Pressure 140/79 [Left Arm] O2 Sat by Pulse 100 Oximetry 10/29/16 10:22 Pulse Rate [ 78 Anterior Bilateral Throughout] Pulse Rate [ Apical] Respiratory Rate Respiratory 18 Rate [Anterior Bilateral Throughout] Blood Pressure [Left Arm] O2 Sat by Pulse Oximetry Constitutional: no acute distress, alert, other (ill appearing female) Eyes: icteric ENT: oropharynx dry Neck: supple Effort: normal Ascultation: Bilateral: diminished breath sounds, rales (scattered anterior and posterior, fine) Percussion: Bilateral: not dull Cardiovascular: regular rate and rhythm Gastrointestinal: normoactive bowel sounds, non-distended Integumentary: normal Extremities: no cyanosis, no edema Neurologic: normal mental status, non-focal exam Psychiatric: mood appropriate, affect normal CBC and BMP: 10/29/16 06:09 10/28/16 06:03 ABG, PT/INR, D-dimer: ABG POC ABG pH 7.330 (7.35-7.45) L 10/22/16 12:24 POC ABG pCO2 21.8 (35-45) L 10/22/16 12:24 POC ABG pO2 48 (80-105) L 10/22/16 12:24 POC ABG HCO3 11.5 10/22/16 12:24 POC ABG Total CO2 12 10/22/16 12:24 POC ABG O2 Sat 82 10/22/16 12:24 Abnormal lab findings: Abnormal Labs 10/20/16 10/20/16 10/20/16 10:00 10:00 21:48 WBC 23.2 H RBC 3.19 L Hgb 9.0 L Hct 28.0 L Plt Count [place] % (Auto) [place] # Seg Neutrophils % Seg Neuts % (Manual) 77.0 H Lymphocytes % (Manual) 8.0 L Monocytes % (Manual) 8.0 H Seg Neutrophils # Seg Neutrophils # Man 17.9 H Monocytes # (Manual) 1.9 H POC ABG pH POC ABG pCO2 POC ABG pO2 Sodium 133 L D Potassium 3.1 L Chloride Carbon Dioxide 17 L BUN 86 H Creatinine 4.2 H Glucose 105 H Lactic Acid Calcium Magnesium Iron TIBC Ferritin C-Reactive Protein Albumin 2.4 L [place]-4-Rlxzhoxeu 0.6 H Vabqe-5-Atrkwcpwu 1.1 H PEP Interpretation see below H Vitamin B12 Urine Creatinine Urine Chloride Urine Total Protein Crossmatch 10/21/16 10/21/16 10/21/16 04:59 04:59 07:50 WBC 24.3 H RBC 2.94 L Hgb 8.6 L Hct 26.2 L Plt Count [place] % (Auto) [place] # Seg Neutrophils % Seg Neuts % (Manual) Lymphocytes % (Manual) Monocytes % (Manual) Seg Neutrophils # Seg Neutrophils # Man Monocytes # (Manual) POC ABG pH POC ABG pCO2 POC ABG pO2 Sodium Potassium 3.4 L Chloride 110.2 H Carbon Dioxide 16 L BUN 65 H Creatinine 2.3 H Glucose Lactic Acid Calcium 8.0 L Magnesium Iron TIBC Ferritin C-Reactive Protein Albumin 2.4 L Pyhyg-8-Mgjiywtso Jphkw-2-Kymzcsaxk PEP Interpretation Vitamin B12 Urine Creatinine 105.8 H Urine Chloride 39.4 L Urine Total Protein 48 H Crossmatch 10/22/16 10/22/16 10/22/16 04:59 04:59 10:39 WBC 25.8 H RBC 2.64 L Hgb 7.4 L Hct 23.8 L Plt Count [place] % (Auto) [place] # Seg Neutrophils % Seg Neuts % (Manual) 79.0 H Lymphocytes % (Manual) 6.0 L Monocytes % (Manual) 9.0 H Seg Neutrophils # Seg Neutrophils # Man 20.4 H Monocytes # (Manual) 2.3 H POC ABG pH POC ABG pCO2 POC ABG pO2 Sodium Potassium 2.9 L* Chloride 116.3 H Carbon Dioxide 12 L BUN 35 H Creatinine 1.3 H Glucose Lactic Acid 2.6 H* Calcium 7.3 L Magnesium Iron TIBC Ferritin C-Reactive Protein Albumin Elzas-2-Upmtgwrmx Apgkq-2-Yajsldsgr PEP Interpretation Vitamin B12 Urine Creatinine Urine Chloride Urine Total Protein Crossmatch 10/22/16 10/22/16 10/22/16 10:39 12:09 12:24 WBC RBC Hgb Hct Plt Count [place] % (Auto) [place] # Seg Neutrophils % Seg Neuts % (Manual) Lymphocytes % (Manual) Monocytes % (Manual) Seg Neutrophils # Seg Neutrophils # Man Monocytes # (Manual) POC ABG pH 7.294 L 7.330 L POC ABG pCO2 24.1 L 21.8 L POC ABG pO2 36 L 48 L Sodium Potassium Chloride Carbon Dioxide BUN Creatinine Glucose Lactic Acid Calcium Magnesium 1.0 L Iron TIBC Ferritin C-Reactive Protein Albumin Erpss-7-Zstqcgfxg Mekxg-3-Yjvwcqoho PEP Interpretation Vitamin B12 Urine Creatinine Urine Chloride Urine Total Protein Crossmatch 10/22/16 10/22/16 10/22/16 16:37 16:37 16:37 WBC RBC Hgb Hct Plt Count [place] % (Auto) [place] # Seg Neutrophils % Seg Neuts % (Manual) Lymphocytes % (Manual) Monocytes % (Manual) Seg Neutrophils # Seg Neutrophils # Man Monocytes # (Manual) POC ABG pH POC ABG pCO2 POC ABG pO2 Sodium Potassium Chloride Carbon Dioxide BUN Creatinine Glucose Lactic Acid Calcium Magnesium Iron 19 L TIBC 119 L Ferritin 664.4 H C-Reactive Protein Albumin Nebis-6-Uudmusssf Ncgwa-6-Mbkapinod PEP Interpretation Vitamin B12 941.5 H Urine Creatinine Urine Chloride Urine Total Protein Crossmatch 10/23/16 10/23/16 10/23/16 05:18 05:18 16:55 WBC 25.2 H RBC 2.95 L Hgb 8.4 L Hct 25.6 L Plt Count 457 H [place] % (Auto) [place] # Seg Neutrophils % Seg Neuts % (Manual) 76.0 H Lymphocytes % (Manual) Monocytes % (Manual) Seg Neutrophils # Seg Neutrophils # Man 19.2 H Monocytes # (Manual) 1.5 H POC ABG pH POC ABG pCO2 POC ABG pO2 Sodium Potassium 2.9 L* Chloride Carbon Dioxide BUN 21 H Creatinine Glucose 122 H Lactic Acid Calcium 7.2 L Magnesium 1.0 L Iron TIBC Ferritin C-Reactive Protein 20.20 H Albumin Mehdj-5-Loleznudp Tgcbo-6-Kpagogutt PEP Interpretation Vitamin B12 Urine Creatinine Urine Chloride Urine Total Protein Crossmatch 10/24/16 10/24/16 10/24/16 05:08 05:08 09:06 WBC 20.3 H RBC 2.39 L Hgb 6.8 L Hct 21.2 L Plt Count [place] % (Auto) [place] # Seg Neutrophils % Seg Neuts % (Manual) 79.0 H Lymphocytes % (Manual) 12.0 L Monocytes % (Manual) Seg Neutrophils # Seg Neutrophils # Man 16.0 H Monocytes # (Manual) 1.2 H POC ABG pH POC ABG pCO2 POC ABG pO2 Sodium Potassium Chloride Carbon Dioxide BUN 21 H Creatinine Glucose Lactic Acid Calcium 6.8 L Magnesium 1.2 L Iron TIBC Ferritin C-Reactive Protein Albumin Sokpg-4-Vyomfamwi Tujfc-0-Lqawfggyq PEP Interpretation Vitamin B12 Urine Creatinine Urine Chloride Urine Total Protein Crossmatch See Detail 10/25/16 10/25/16 10/26/16 05:18 05:18 06:40 WBC 16.1 H 17.2 H RBC 3.14 L 3.01 L Hgb 9.1 L 8.7 L Hct 27.6 L D 26.7 L Plt Count [place] % (Auto) [place] # 1.1 H 1.1 H Seg Neutrophils % 76.6 H 76.9 H Seg Neuts % (Manual) Lymphocytes % (Manual) Monocytes % (Manual) Seg Neutrophils # 12.3 H 13.2 H Seg Neutrophils # Man Monocytes # (Manual) POC ABG pH POC ABG pCO2 POC ABG pO2 Sodium Potassium Chloride Carbon Dioxide BUN 18 H Creatinine Glucose Lactic Acid Calcium 7.3 L Magnesium 1.4 L Iron TIBC Ferritin C-Reactive Protein Albumin Azkqf-5-Kmlqqtlbf Okrmi-7-Nmdawnmbw PEP Interpretation Vitamin B12 Urine Creatinine Urine Chloride Urine Total Protein Crossmatch 10/26/16 10/28/16 10/28/16 06:40 06:03 06:03 WBC 15.2 H RBC 2.91 L Hgb 8.4 L Hct 25.9 L Plt Count [place] % (Auto) [place] # 1.1 H Seg Neutrophils % 74.4 H Seg Neuts % (Manual) Lymphocytes % (Manual) Monocytes % (Manual) Seg Neutrophils # 11.3 H Seg Neutrophils # Man Monocytes # (Manual) POC ABG pH POC ABG pCO2 POC ABG pO2 Sodium Potassium Chloride Carbon Dioxide BUN 19 H Creatinine Glucose Lactic Acid Calcium 7.8 L Magnesium 1.5 L Iron TIBC Ferritin C-Reactive Protein Albumin Qjlxa-6-Bjfrgpwge Aumqz-4-Zmbbsxull PEP Interpretation Vitamin B12 Urine Creatinine Urine Chloride Urine Total Protein Crossmatch 10/29/16 06:09 WBC RBC 2.67 L Hgb 7.8 L Hct 23.9 L Plt Count [place] % (Auto) 9.7 H [place] # 1.1 H Seg Neutrophils % Seg Neuts % (Manual) Lymphocytes % (Manual) Monocytes % (Manual) Seg Neutrophils # Seg Neutrophils # Man Monocytes # (Manual) POC ABG pH POC ABG pCO2 POC ABG pO2 Sodium Potassium Chloride Carbon Dioxide BUN Creatinine Glucose Lactic Acid Calcium Magnesium Iron TIBC Ferritin C-Reactive Protein Albumin Thfqy-4-Addffrufp [place]-7-Kfnpfjkok PEP Interpretation Vitamin B12 Urine Creatinine Urine Chloride Urine Total Protein Crossmatch CT scan - chest: report reviewed, image reviewed
--- NOTE | 2016-10-29 15:47 | Progress Note ---
Assessment and Plan Patient is a 56-year-old woman with a history of major depressive disorder, hepatitis C and pancreatitis who presents with worsening constant fatigue x 2 weeks, body aches, decrease appetite nausea without vomiting and abdominal discomfort. She also complained of upper respiratory symptoms. In the ER she had have white count of 26.1, sodium 126 and creatinine 5.3. Acute renal failure, (ATN vs vasomotor nephropathy) -renal ultrasound showed medical renal disease -Nephrology following - renal function significantly improved with IV fluid - avoid nephrotoxins Acute hypoxic respiratory failure - suspected Pulmonary edema, CXR clear, VQ scan did not show any PE - Likely from IV fluid hydration and hypoalbuminemia - stopped iv fluid - cont supplimental O2 and nebulizer breathing treatment chest pain r/o ACS - Normal troponin, nonspecific EKG - CT was negative for PE - 2d echo showed preserved EF Acute toxic metabolic encephalopathy -Multifactorial - uemia/hyperammonemia/electrolytes abnormalities/? infection -Treat underlying conditions -Improved Sepsis likley from b/l PNA: -CT chest with patchy infiltrates bilat; HIV status checked to r/o PCP pneumonia (negative) -On admission started on Rocephin empirically and ID continued it -WBC trended down, but still elevated, inflam markers elevated -Pulmonary following and plan for bronchoscopy tomorrow Upper respiratory infection: -Treat symptomatically and continue Rocephin Anemia, Normocytic ; -Likely secondary to combination of anemia of chronic disease and iron efficiency; stool occult blood negative -B12 and folate within normal limits -Even though stool occult blood negative, she may benefit from outpatient GI evaluation with possible EGD/colonoscopy given her status and age -S/p 1 unit PRBC -cont iron supplement - cont to Monitor H&H Electrolyte abnormalities -Hyponatremia - resolved -Hypokalemia - resolved -Hypomagnesemia - continue to replete and recheck daily -Moderate to severe malnutrition; dietary consult Metabolic acidosis; - likely from renal failure, on NaHCO3 fluid Hyperammonemia: Treated with lactulose, cont to trend h/o Hepatitis C: GI following, abdominal US did not show any sign of cirrhosis Alcohol abuse: placed on CIWA protocol, no sign of withdrawl, monitor clinially DVT prophylaxis: will place on SCD, no heparin as H and H dropping Subjective Principal diagnosis: Sepsis/PNA/alcohol abuse Interval history: Patient seen and examined. Medical records and medication list reviewed. No acute event overnight noted by the RN. She continue to c/o pleuratic chest pain bronchoscopy was not done today due to scheduling issue Discussed plan of care at bedside with patient Objective - Exam Narrative Exam: GENERAL: -[place] female Malnourished appearing older than her stated age, lying on bed appeared to be in mild discomfort. HEENT: Normocephalic. Atraumatic. No conjunctival congestion or icterus. Patient has moist mucous membranes. NECK: Supple. Trachea midline. CHEST/LUNGS: Coarse breath sounds auscultated bilaterally, breathing nonlabored. No wheezes crackles or rhonchi. HEART/CARDIOVASCULAR: Regular in rate and rhythm. S1 and S2 positive. ABDOMEN: Abdomen is soft, nontender. Patient has normal bowel sounds. SKIN: There is no rash. Warm and dry. NEURO: No focal motor deficit. Follows command. MUSCULOSKELETAL: No joint effusion or tenderness. EXTRIMITY: No edema, no cyanosis or clubbing. PSYCH: Cooperative. - Constitutional Vitals: Vital Signs - 12hr 10/29/16 10/29/16 10/29/16 07:00 10:12 10:17 Pulse Rate [ 77 Anterior Bilateral Throughout] Pulse Rate [ 77 Apical] Respiratory 18 Rate Respiratory 18 Rate [Anterior Bilateral Throughout] Blood Pressure 140/79 [Left Arm] O2 Sat by Pulse 100 Oximetry 10/29/16 10/29/16 10:22 14:44 Pulse Rate [ 78 88 Anterior Bilateral Throughout] Pulse Rate [ Apical] Respiratory Rate Respiratory 18 16 Rate [Anterior Bilateral Throughout] Blood Pressure [Left Arm] O2 Sat by Pulse Oximetry - Labs CBC & Chem 7: 10/29/16 06:09 10/28/16 06:03 Labs: Abnormal lab results 10/29/16 Range/Units 06:09 RBC 2.67 L (3.65-5.03) M/mm3 Hgb 7.8 L (10.1-14.3) gm/dl Hct 23.9 L (30.3-42.9) % [place] % (Auto) 9.7 H (0.0-7.3) % [place] # 1.1 H (0.0-0.8) K/mm3
[2016-10-29] MEDS: PERCOCET 5/325 PO PRN (17:01)
[2016-10-29 17:19] LABS: ISTAT Base Excess 3; ISTAT HCO3 27.4; ISTAT PCO2 38.6 (35-45); ISTAT PH 7.458 (7.35-7.45); ISTAT PO2 54 (80-105); ISTAT SO2 89; ISTAT TCO2 29
--- NOTE | 2016-10-29 19:37 | Progress Note ---
Subjective Date of service: 10/29/16 Principal diagnosis: Sepsis/PNA/alcohol abuse Interval history: Patient has no new complaints. PHYSICAL EXAM VS - Afebrile chest - good air entry cvs - s1s2 abd - bs + LABS - Reviewed. See lab section CT chest - showed multiple nodularities. CT abd - thicken portion of the colon hiv - negative ASSESSMENT 1. Pneumonia 2. hepatitis c 3. hypokalemia 4. acute kidney failure. 5. Leukocytosis RECOMMENDATION 1. awaits bronch in am 2. continue current abx 3. cbc in am Objective - Constitutional Vitals: Vital Signs Temp Pulse Resp BP Pulse Ox 98.2 F 96 H 18 104/66 97 10/29/16 16:10 10/29/16 16:10 10/29/16 16:10 10/29/16 16:10 10/29/16 16:10 Temperature -Last 24 Hours Temperature 98.2 F Temperature 98.6 F - Labs CBC & Chem 7: 10/29/16 06:09 10/28/16 06:03 Labs: Abnormal lab results 10/29/16 10/29/16 Range/Units 06:09 16:19 RBC 2.67 L (3.65-5.03) M/mm3 Hgb 7.8 L (10.1-14.3) gm/dl Hct 23.9 L (30.3-42.9) % [place] % (Auto) 9.7 H (0.0-7.3) % [place] # 1.1 H (0.0-0.8) K/mm3 POC ABG pH 7.458 H (7.35-7.45) POC ABG pO2 54 L (80-105)
[2016-10-30] MEDS ORDERED: NACL P/F VIAL (10 ML) ONE (00:24)
[2016-10-30] MEDS ORDERED: ROBINUL ONE (00:24)
[2016-10-30] MEDS ORDERED: NEO SYNEPHRINE ONE (00:24)
[2016-10-30] MEDS ORDERED: BREVIBLOC IV ONE ×2 (00:24→09:00)
[2016-10-30] MEDS: PERCOCET 5/325 PO PRN ×3 (03:16→20:15)
[2016-10-30] MEDS: DUONEB 0.5 MG-3 MG/3 ML SOLN IH SCH ×3 (08:29→20:22)
[2016-10-30] MEDS: SODIUM BICARBONATE PO SCH ×3 (08:30→22:11)
[2016-10-30] MEDS ORDERED: NEO SYNEPHRINE/NS Syringe(OR USE) IV ONE (09:00)
[2016-10-30] MEDS ORDERED: NACL 0.9% 1000 ML 1,000 ML ONE (09:07)
[2016-10-30] MEDS ORDERED: XYLOCAINE 1% 20 mL ONE (09:10)
[2016-10-30] MEDS ORDERED: LIDOCAINE VISCOUS 2% ONE (09:11)
[2016-10-30] MEDS ORDERED: ADRENALIN ONE (09:11)
[2016-10-30 09:12] LABS: Basophils % (Auto) 0.2 % (0.0-1.8); Hematocrit 25.7 % (30.3-42.9); Mean Corpuscular HGB Conc 33 % (30-34); Mean Corpuscular Hemoglobin 30 pg (28-32); Mean Corpuscular Volume 90 fl (79-97); Platelet Count 357 K/mm3 (140-440); Red Cell Distribution Width 14.1 % (13.2-15.2)
[2016-10-30] MEDS ORDERED: DIPRIVAN 10 MG/ML IV ONE ×2 (09:13)
[2016-10-30] MEDS ORDERED: VERSED ONE (09:13)
[2016-10-30] MEDS ORDERED: SUBLIMAZE ONE (09:13)
[2016-10-30] MEDS ORDERED: WATER FOR IRRIG STERILE IR ONE (09:15)
[2016-10-30 09:16] LABS: Hemoglobin 8.4 gm/dl (10.1-14.3); Red Blood Count 2.85 M/mm3 (3.65-5.03)
[2016-10-30] MEDS ORDERED: LIDOCAINE VISCOUS 2% MM ONE (09:30)
[2016-10-30] MEDS ORDERED: HURRICAINE ONE 20% TOPICAL SPRAY MM ×2 (09:32→09:59)
[2016-10-30] MEDS ORDERED: NACL 0.9% 1000 ML 1,000 ML IV SCH (10:00)
[2016-10-30] MEDS ORDERED: XYLOCAINE 1% 20 mL INFILTRATI ONE (10:05)
--- NOTE | 2016-10-30 10:50 | Anesthesia Consultation ---
Anesthesia Consult and Med Hx Date of service: 10/30/16 - Airway Anesthetic Teeth Evaluation: Poor (many missing) ROM Head & Neck: Adequate Mental/Hyoid Distance: Adequate Mallampati Class: Class I Intubation Access Assessment: Good - Pre-Operative Health Status ASA Pre-Surgery Classification: ASA3 Proposed Anesthetic Plan: MAC - Pulmonary Hx Smoking: Yes Hx Asthma: No Hx Respiratory Symptoms: Yes (SOB on exertion) COPD: No Hx Pneumonia: Yes - Cardiovascular System Hx Hypertension: No Hx Coronary Artery Disease: Yes Hx Peripheral Vascular Disease: Yes - Central Nervous System Hx Neuromuscular Disorder: No Hx Seizures: Yes CVA: No Hx Psychiatric Problems: Yes (depression) - Gastrointestinal Hx Gastroesophageal Reflux Disease: No - Endocrine Hx Renal Disease: Yes (Acute renal failure upon admission, resolved) Hx End Stage Renal Disease: No Hx Cirrhosis: Yes (secondary to HEP C) Hx Insulin Dependent Diabetes: No - Hematic Hx Anemia: Yes Hx Sickle Cell Disease: No - Other Systems Hx Alcohol Use: Yes (4-5 beers/day) Hx Substance Use: No Hx Cancer: No Hx Obesity: No
--- NOTE | 2016-10-30 10:50 | Anesthesia Day of Surgery ---
Anesthesia Day of Surgery - Day of Surgery Patient Examined: Yes Patient H&P Reviewed: Yes Patient is NPO: Yes
--- NOTE | 2016-10-30 10:56 | Procedure Note ---
Date of procedure: 10/30/16 Pre-op diagnosis: pneumonia, pulmonary fibrosis, GI reflux Post-op diagnosis: same Procedure: Fiberoptic bronchoscopy with fluoroscopy-guided transbronchial biopsy of the right upper lobe, bronchial alveolar lavage right upper lobe, bronchial washings for cytology right upper lobe Patient was admitted to the endoscopy area for procedure. After routine timeout verification of plan of care but patient was sedated by anesthesia. Once sedated the scope was introduced orally and the lower larynx and vocal cords were inspected. All structures were normal with vocal cords Shows normal mobility. After additional lidocaine at this level , the scope was then introduced into the trachea and main reanna. All airways were inspected. Main reanna was sharp midline without any lesions Right main show minimal secretions at the RC 1 level. All of the other airways were open without gross lesions. Left Main left upper lobe, lingular and left lower lobe were grossly normal without gross lesions. Samples were obtained from the right upper lobe Described above. Bleeding was minimal procedure was well-tolerated No pneumothorax noted on postprocedure fluoroscopy. Postop x-rays were ordered anyway Anesthesia: MAC Surgeon: NETTIE WILD Estimated blood loss: minimal IV fluids: 25 Urine output: 50 Pathology: list (transbronchial biopsy of the right upper lobe, bronchial alveolar lavage right upper lobe, bronchial washings for cytology right upper lobe) Specimen disposition: to lab Condition: stable Disposition: floor
--- NOTE | 2016-10-30 11:24 | XRay Report ---
AP chest x-ray. History: Post bronchoscopy with biopsy. Findings: There is no evidence of pneumothorax. As the previous study on October 21, bibasilar infiltrates and right upper lobe infiltrate have developed. The heart size is normal. Pulmonary vascularity is unremarkable. Impression: Right upper lobe and bilateral lower lobe infiltrates with no evidence of pneumothorax status post bronchoscopy.
--- NOTE | 2016-10-30 12:14 | Post Anesthesia Evaluation ---
- Post Anesthesia Evaluation Patient Participated: Yes Airway Patent: Yes Stable Respiratory Function: Yes Nausea/Vomiting: No Temp > 96.8F: Yes Pain Manageable: Yes Adequeate Hydration: Yes Anesthesia Complications: No Block Receding Appropriately: Not Applicable Patient on Ventilator: No
[2016-10-30] MEDS: ROCEPHIN/NS 1 GM/50 ML 1 GM/50 ML BAG IV SCH (13:17)
[2016-10-30] MEDS: PROTONIX PO SCH (13:18)
[2016-10-30] MEDS: ZOLOFT PO SCH (13:20)
--- NOTE | 2016-10-30 14:04 | Discharge Summary ---
Providers - Providers Date of Admission: 10/20/16 03:07 Date of discharge: 10/31/16 Attending physician: SCOTTIE BRADLEY 10/20/16 03:12 Consult to Physician [CONS] Routine Consulting Provider: TRINA HARMAN Reason For Exam: ?hepatorenal syndrome Place consult to:: Ruslan Harman MD Notified:: answering service Phone number called:: Was contact made?: Yes If yes, spoke with:: sharyn Horton called:: 08:46 10/22/16 20:59 Consult to Physician [CONS] Routine Consulting Provider: ELVIRA HOOD Reason For Exam: persistant leukocytosis Place consult to:: DYLAN/DR. HOOD Notified:: OFFICE Phone number called:: [phone] Was contact made?: Yes If yes, spoke with:: ANGELA Horton called:: 09:30 Comment:: JOSHUA NOTIFIED 10/26/16 09:03 Consult to Physician [CONS] Routine Consulting Provider: RENEE MARIA Reason For Exam: abnormal CT chest, persistent leukocytosis Place consult to:: Dr. Maria Notified:: office Phone number called:: [phone] Was contact made?: Yes If yes, spoke with:: john Horton called:: 10:12 Primary care physician: TRUCK WASHER Hospitalization Condition: Stable Hospital course: Patient is a 56-year-old woman with a history of major depressive disorder, hepatitis C and pancreatitis who presents with worsening constant fatigue x 2 weeks, body aches, decrease appetite nausea without vomiting and abdominal discomfort. She also complained of upper respiratory symptoms. In the ER she had white count of 26.1, sodium 126 and creatinine of 5.3. Discharge Diagnosis and management: Acute renal failure, (ATN vs vasomotor nephropathy) - Renal ultrasound showed medical renal disease - Nephrology was consulted - renal function significantly improved with IV fluid - nephrotoxins avoided Acute hypoxic respiratory failure - likley from underlying PNA and COPD exacerbation, - CXR was clear, VQ scan did not show any PE - CT chest showed patchy infiltrates bilaterally - continuted with supplimental O2 and nebulizer breathing treatment - Appears to develop chronic respiratory insufficiency with hypoxia - O2 sats drops to less than 88% on ambulation - d/c with home O2 chest pain rulled out ACS - Normal troponin, nonspecific EKG - CT was negative for PE - 2d echo showed preserved EF Acute toxic metabolic encephalopathy -Multifactorial - uemia/hyperammonemia/electrolytes abnormalities/? infection -Treated underlying conditions -Improved Sepsis adolphley from b/l PNA: -CT chest with patchy infiltrates bilat; HIV status checked to r/o PCP pneumonia (negative) -On admission started on Rocephin empirically and ID continued it -WBC trended down, s/p bronchoscope on 10/30/16 -No abx on discharge, will f/u with pulmonary as outpatient Upper respiratory infection: -Treated symptomatically with Rocephin Anemia, Normocytic ; -Likely secondary to combination of anemia of chronic disease and iron efficiency; stool occult blood negative -B12 and folate within normal limits -S/p 1 unit PRBC -cont iron supplement -Even though stool occult blood negative, she may benefit from outpatient GI evaluation with possible EGD/colonoscopy given her status and age Electrolyte abnormalities -Hyponatremia - resolved -Hypokalemia - resolved -Hypomagnesemia - repleted -Moderate to severe malnutrition; dietary consult Metabolic acidosis; - likely from renal failure, s/p NaHCO3 fluid Hyperammonemia: Treated with lactulose, cont to trend h/o Hepatitis C: GI was consulted, abdominal US did not show any sign of cirrhosis Alcohol abuse: placed on CIWA protocol, no sign of withdrawal noted, monitored clinically Major depression: No suicidal thought, outpt f/u with psych Disposition: DISCHARGED TO HOME OR SELFCARE Time spent for discharge: 32 minutes Core Measure Documentation - Palliative Care Palliative Care/ Comfort Measures: Not Applicable - Core Measures Any of the following diagnoses?: none Exam - Physical Exam Narrative exam: GENERAL: -[place] female Malnourished appearing older than her stated age, lying on bed appeared to be in mild discomfort. HEENT: Normocephalic. Atraumatic. No conjunctival congestion or icterus. Patient has moist mucous membranes. NECK: Supple. Trachea midline. CHEST/LUNGS: Coarse breath sounds auscultated bilaterally, breathing nonlabored. No wheezes crackles or rhonchi. HEART/CARDIOVASCULAR: Regular in rate and rhythm. S1 and S2 positive. ABDOMEN: Abdomen is soft, nontender. Patient has normal bowel sounds. SKIN: There is no rash. Warm and dry. NEURO: No focal motor deficit. Follows command. MUSCULOSKELETAL: No joint effusion or tenderness. EXTRIMITY: No edema, no cyanosis or clubbing. PSYCH: Cooperative. - Constitutional Vitals: Temp Pulse Resp BP Pulse Ox 97.8 F 88 18 119/78 100 10/30/16 12:31 10/30/16 12:31 10/30/16 12:31 10/30/16 12:31 10/30/16 11:00 Plan Activity: fall precautions Weight Bearing Status: Non-Weight Bearing Diet: low fat Durable Medical Equipment Needed Upon Discharge: Oxygen (2L), Nebulizer Follow up with: PRIMARY CARE,MD [Primary Care Provider] - 3-5 Days Prescriptions: Pantoprazole [Protonix TAB] 40 mg PO DAILY #30 tablet Ipratropium/Albuterol Sulfate [Duoneb 0.5 mg-3 mg/3 ml Soln] 1 ampul IH TIDRT 30 Days Pending Studies Need 2d echo in 3 months, PFT and 6 minutes walk study in 6 weeks
--- NOTE | 2016-10-30 20:13 | Progress Note ---
Subjective Date of service: 10/30/16 Principal diagnosis: Sepsis/PNA/alcohol abuse Interval history: Patient has no new complaints. PHYSICAL EXAM VS - Afebrile chest - good air entry cvs - s1s2 abd - bs + LABS - Reviewed. See lab section CT chest - showed multiple nodularities. CT abd - thicken portion of the colon hiv - negative ASSESSMENT 1. Pneumonia 2. hepatitis c 3. hypokalemia 4. acute kidney failure. 5. Leukocytosis RECOMMENDATION 1. awaits culture report. 2. d/c planning on oral levaquin and bactrim for 10days if bronchial cultures are negative. 3. f/u cytology report Objective - Constitutional Vitals: Vital Signs Temp Pulse Resp BP Pulse Ox 98 F 90 20 110/62 100 10/30/16 15:00 10/30/16 15:25 10/30/16 15:25 10/30/16 15:00 10/30/16 11:00 Temperature -Last 24 Hours Temperature 98 F Temperature 97.8 F Temperature 97.5 F Temperature 97.8 F Temperature 97.8 F Temperature 97.5 F Temperature 97.9 F Temperature 98.2 F - Labs CBC & Chem 7: 10/30/16 08:42 10/28/16 06:03 Labs: Abnormal lab results 10/30/16 Range/Units 08:42 RBC 2.85 L (3.65-5.03) M/mm3 Hgb 8.4 L (10.1-14.3) gm/dl Hct 25.7 L (30.3-42.9) % [place] # 0.9 H (0.0-0.8) K/mm3
[2016-10-31] MEDS: PERCOCET 5/325 PO PRN (03:41)
[2016-10-31] MEDS: DUONEB 0.5 MG-3 MG/3 ML SOLN IH SCH ×2 (07:35→13:32)
[2016-10-31 07:53] VITALS: BP 95/64
[2016-10-31] MEDS: SODIUM BICARBONATE PO SCH (08:18)
--- NOTE | 2016-10-31 09:17 | Progress Note ---
Assessment and Plan Acute renal failure, (ATN vs vasomotor nephropathy) -renal ultrasound showed medical renal disease -Nephrology following - renal function significantly improved with IV fluid - nephrotoxins avoided Acute hypoxic respiratory failure - likley from underlying PNA and COPD exacerbation, - CXR clear, VQ scan did not show any PE - CT chest with patchy infiltrates bilaterally - continute with supplimental O2 and nebulizer breathing treatment - Appears to develop chronic respiratory insufficiency with hypoxia - O2 sats drops to less than 88% on ambulation - need to be d/c with home O2 chest pain rulled out ACS - Normal troponin, nonspecific EKG - CT was negative for PE - 2d echo showed preserved EF Acute toxic metabolic encephalopathy -Multifactorial - uemia/hyperammonemia/electrolytes abnormalities/? infection -Treated underlying conditions -Improved Sepsis likley from b/l PNA: -CT chest with patchy infiltrates bilat; HIV status checked to r/o PCP pneumonia (negative) -On admission started on Rocephin empirically and ID continued it -WBC trended down, s/p bronchoscopy today -No abx on discharge, will f/u with pulmonary outpt Upper respiratory infection: -Treated symptomatically with Rocephin Anemia, Normocytic ; -Likely secondary to combination of anemia of chronic disease and iron efficiency; stool occult blood negative -B12 and folate within normal limits -S/p 1 unit PRBC -cont iron supplement -Even though stool occult blood negative, she may benefit from outpatient GI evaluation with possible EGD/colonoscopy given her status and age Electrolyte abnormalities -Hyponatremia - resolved -Hypokalemia - resolved -Hypomagnesemia - repleted -Moderate to severe malnutrition; dietary consulted Metabolic acidosis; - likely from renal failure, s/p NaHCO3 fluid, resolved Hyperammonemia: Treated with lactulose, improved h/o Hepatitis C: GI was consulted, abdominal US did not show any sign of cirrhosis Alcohol abuse: placed on CIWA protocol, no sign of withdrawl, monitor clinically Major depression: No suicidal thought, outpt f/u with psych Subjective Principal diagnosis: Sepsis/PNA/alcohol abuse Interval history: Patient seen and examined. Medical records and medication list reviewed. No acute event overnight noted by the RN. s/p bronchoscopy today, result pending Discussed plan of care at bedside with patient Her o2 sat dropping with room air, will need home o2 Objective - Exam Narrative Exam: GENERAL: -[place]ov[place] female Malnourished appearing older than her stated age, lying on bed appeared to be in mild discomfort. HEENT: Normocephalic. Atraumatic. No conjunctival congestion or icterus. Patient has moist mucous membranes. NECK: Supple. Trachea midline. CHEST/LUNGS: Coarse breath sounds auscultated bilaterally, breathing nonlabored. No wheezes crackles or rhonchi. HEART/CARDIOVASCULAR: Regular in rate and rhythm. S1 and S2 positive. ABDOMEN: Abdomen is soft, nontender. Patient has normal bowel sounds. SKIN: There is no rash. Warm and dry. NEURO: No focal motor deficit. Follows command. MUSCULOSKELETAL: No joint effusion or tenderness. EXTRIMITY: No edema, no cyanosis or clubbing. PSYCH: Cooperative. - Constitutional Vitals: Vital Signs - 12hr 10/30/16 10/31/16 22:00 07:20 Temperature 98.6 F 98.1 F Pulse Rate [ 100 H Apical] Pulse Rate [ 82 Radial] Respiratory 22 18 Rate Blood Pressure 104/61 95/64 [Left Arm] O2 Sat by Pulse 96 98 Oximetry - Labs CBC & Chem 7: 10/30/16 08:42 10/28/16 06:03 Labs: Abnormal lab results 10/30/16 Range/Units 08:42 RBC 2.85 L (3.65-5.03) M/mm3 Hgb 8.4 L (10.1-14.3) gm/dl
[2016-10-31] MEDS: PROTONIX PO SCH (09:59)
[2016-10-31] MEDS: ZOLOFT PO SCH (10:00)
--- NOTE | 2016-10-31 10:23 | Progress Note ---
Assessment and Plan Sepsis. Controlled. Secondary to lower respiratory tract infection, pneumonia Interstitial/cystic lung disease changes. Bronchoscopy biopsy is not revealing for any interstitial lung disease pattern. Wash is consistent with inflammatory process, pneumonia Hepatitis C Alcohol abuse. Risk factor for cardiac aspiration Recommendations Check SCL-70 results. This can be done as an outpatient Probably OK to discharge. Can follow at the pulmonary office later in 2-3 weeks for additional culture results Echo was non conclusive for PHF. Will need to update with PFT,walk test in 6 wks and echo in 3 months Update flu , influenza vaccination if not done Discussed with pt. Will sign off Subjective Date of service: 10/31/16 Principal diagnosis: Sepsis/PNA/alcohol abuse Interval history: Some dyspnea walking this morning. She desaturated to the upper 70"s per RN on r /a.Pending portable oxygen to be DH Objective Vital Signs - 12hr 10/31/16 10/31/16 10/31/16 07:20 07:35 07:45 Temperature 98.1 F Pulse Rate [ 84 80 Anterior Bilateral Throughout] Pulse Rate [ 82 Radial] Respiratory 18 Rate Respiratory 18 18 Rate [Anterior Bilateral Throughout] Blood Pressure 95/64 [Left Arm] O2 Sat by Pulse 98 Oximetry 10/31/16 09:43 Temperature Pulse Rate [ Anterior Bilateral Throughout] Pulse Rate [ Radial] Respiratory Rate Respiratory Rate [Anterior Bilateral Throughout] Blood Pressure [Left Arm] O2 Sat by Pulse 100 Oximetry Constitutional: no acute distress, alert, other (ill appearing female) Eyes: icteric ENT: oropharynx dry Neck: supple Effort: normal Ascultation: Bilateral: diminished breath sounds, rales (scattered anterior and posterior, fine), rhonchi Percussion: Bilateral: not dull Cardiovascular: regular rate and rhythm Gastrointestinal: normoactive bowel sounds, non-distended Integumentary: normal Extremities: no cyanosis, no edema Neurologic: normal mental status, non-focal exam Psychiatric: mood appropriate, affect normal CBC and BMP: 10/30/16 08:42 10/28/16 06:03 ABG, PT/INR, D-dimer: ABG POC ABG pH 7.458 (7.35-7.45) H 10/29/16 16:19 POC ABG pCO2 38.6 (35-45) 10/29/16 16:19 POC ABG pO2 54 (80-105) L 10/29/16 16:19 POC ABG HCO3 27.4 10/29/16 16:19 POC ABG Total CO2 29 10/29/16 16:19 POC ABG O2 Sat 89 10/29/16 16:19 Abnormal lab findings: Abnormal Labs 10/20/16 10/20/16 10/20/16 10:00 10:00 21:48 WBC 23.2 H RBC 3.19 L Hgb 9.0 L Hct 28.0 L Plt Count [place] % (Auto) [place] # Seg Neutrophils % Seg Neuts % (Manual) 77.0 H Lymphocytes % (Manual) 8.0 L Monocytes % (Manual) 8.0 H Seg Neutrophils # Seg Neutrophils # Man 17.9 H Monocytes # (Manual) 1.9 H POC ABG pH POC ABG pCO2 POC ABG pO2 Sodium 133 L D Potassium 3.1 L Chloride Carbon Dioxide 17 L BUN 86 H Creatinine 4.2 H Glucose 105 H Lactic Acid Calcium Magnesium Iron TIBC Ferritin C-Reactive Protein Albumin 2.4 L Uzjqu-8-Cqmzswocu 0.6 H Xaqfv-8-Ujigobjgw 1.1 H PEP Interpretation see below H Vitamin B12 Urine Creatinine Urine Chloride Urine Total Protein Crossmatch 10/21/16 10/21/16 10/21/16 04:59 04:59 07:50 WBC 24.3 H RBC 2.94 L Hgb 8.6 L Hct 26.2 L Plt Count [place] % (Auto) [place] # Seg Neutrophils % Seg Neuts % (Manual) Lymphocytes % (Manual) Monocytes % (Manual) Seg Neutrophils # Seg Neutrophils # Man Monocytes # (Manual) POC ABG pH POC ABG pCO2 POC ABG pO2 Sodium Potassium 3.4 L Chloride 110.2 H Carbon Dioxide 16 L BUN 65 H Creatinine 2.3 H Glucose Lactic Acid Calcium 8.0 L Magnesium Iron TIBC Ferritin C-Reactive Protein Albumin 2.4 L Ejmps-8-Ezwqhyftg Vthmt-3-Kszxppnfs PEP Interpretation Vitamin B12 Urine Creatinine 105.8 H Urine Chloride 39.4 L Urine Total Protein 48 H Crossmatch 10/22/16 10/22/16 10/22/16 04:59 04:59 10:39 WBC 25.8 H RBC 2.64 L Hgb 7.4 L Hct 23.8 L Plt Count [place] % (Auto) [place] # Seg Neutrophils % Seg Neuts % (Manual) 79.0 H Lymphocytes % (Manual) 6.0 L Monocytes % (Manual) 9.0 H Seg Neutrophils # Seg Neutrophils # Man 20.4 H Monocytes # (Manual) 2.3 H POC ABG pH POC ABG pCO2 POC ABG pO2 Sodium Potassium 2.9 L* Chloride 116.3 H Carbon Dioxide 12 L BUN 35 H Creatinine 1.3 H Glucose Lactic Acid 2.6 H* Calcium 7.3 L Magnesium Iron TIBC Ferritin C-Reactive Protein Albumin Xtznt-2-Jgtylffxk Dzvdn-5-Gwxmhbcko PEP Interpretation Vitamin B12 Urine Creatinine Urine Chloride Urine Total Protein Crossmatch 10/22/16 10/22/16 10/22/16 10:39 12:09 12:24 WBC RBC Hgb Hct Plt Count [place] % (Auto) [place] # Seg Neutrophils % Seg Neuts % (Manual) Lymphocytes % (Manual) Monocytes % (Manual) Seg Neutrophils # Seg Neutrophils # Man Monocytes # (Manual) POC ABG pH 7.294 L 7.330 L POC ABG pCO2 24.1 L 21.8 L POC ABG pO2 36 L 48 L Sodium Potassium Chloride Carbon Dioxide BUN Creatinine Glucose Lactic Acid Calcium Magnesium 1.0 L Iron TIBC Ferritin C-Reactive Protein Albumin Symrz-2-Jjufmkdkc Jrmpl-2-Svladlhrn PEP Interpretation Vitamin B12 Urine Creatinine Urine Chloride Urine Total Protein Crossmatch 10/22/16 10/22/16 10/22/16 16:37 16:37 16:37 WBC RBC Hgb Hct Plt Count [place] % (Auto) [place] # Seg Neutrophils % Seg Neuts % (Manual) Lymphocytes % (Manual) Monocytes % (Manual) Seg Neutrophils # Seg Neutrophils # Man Monocytes # (Manual) POC ABG pH POC ABG pCO2 POC ABG pO2 Sodium Potassium Chloride Carbon Dioxide BUN Creatinine Glucose Lactic Acid Calcium Magnesium Iron 19 L TIBC 119 L Ferritin 664.4 H C-Reactive Protein Albumin Qltsu-6-Licgdrtrk Jawhd-1-Anfbaxgvs PEP Interpretation Vitamin B12 941.5 H Urine Creatinine Urine Chloride Urine Total Protein Crossmatch 10/23/16 10/23/16 10/23/16 05:18 05:18 16:55 WBC 25.2 H RBC 2.95 L Hgb 8.4 L Hct 25.6 L Plt Count 457 H [place] % (Auto) [place] # Seg Neutrophils % Seg Neuts % (Manual) 76.0 H Lymphocytes % (Manual) Monocytes % (Manual) Seg Neutrophils # Seg Neutrophils # Man 19.2 H Monocytes # (Manual) 1.5 H POC ABG pH POC ABG pCO2 POC ABG pO2 Sodium Potassium 2.9 L* Chloride Carbon Dioxide BUN 21 H Creatinine Glucose 122 H Lactic Acid Calcium 7.2 L Magnesium 1.0 L Iron TIBC Ferritin C-Reactive Protein 20.20 H Albumin Gcetu-2-Ugqzfufay Ktyml-0-Vpujorkvn PEP Interpretation Vitamin B12 Urine Creatinine Urine Chloride Urine Total Protein Crossmatch 10/24/16 10/24/16 10/24/16 05:08 05:08 09:06 WBC 20.3 H RBC 2.39 L Hgb 6.8 L Hct 21.2 L Plt Count [place] % (Auto) [place] # Seg Neutrophils % Seg Neuts % (Manual) 79.0 H Lymphocytes % (Manual) 12.0 L Monocytes % (Manual) Seg Neutrophils # Seg Neutrophils # Man 16.0 H Monocytes # (Manual) 1.2 H POC ABG pH POC ABG pCO2 POC ABG pO2 Sodium Potassium Chloride Carbon Dioxide BUN 21 H Creatinine Glucose Lactic Acid Calcium 6.8 L Magnesium 1.2 L Iron TIBC Ferritin C-Reactive Protein Albumin Xcvng-6-Vuvccskes Bcqqy-0-Nnagukkzo PEP Interpretation Vitamin B12 Urine Creatinine Urine Chloride Urine Total Protein Crossmatch See Detail 10/25/16 10/25/16 10/26/16 05:18 05:18 06:40 WBC 16.1 H 17.2 H RBC 3.14 L 3.01 L Hgb 9.1 L 8.7 L Hct 27.6 L D 26.7 L Plt Count [place] % (Auto) [place] # 1.1 H 1.1 H Seg Neutrophils % 76.6 H 76.9 H Seg Neuts % (Manual) Lymphocytes % (Manual) Monocytes % (Manual) Seg Neutrophils # 12.3 H 13.2 H Seg Neutrophils # Man Monocytes # (Manual) POC ABG pH POC ABG pCO2 POC ABG pO2 Sodium Potassium Chloride Carbon Dioxide BUN 18 H Creatinine Glucose Lactic Acid Calcium 7.3 L Magnesium 1.4 L Iron TIBC Ferritin C-Reactive Protein Albumin Ghtad-4-Vhlxdgnyx Unall-7-Kbrfnqxnu PEP Interpretation Vitamin B12 Urine Creatinine Urine Chloride Urine Total Protein Crossmatch 10/26/16 10/28/16 10/28/16 06:40 06:03 06:03 WBC 15.2 H RBC 2.91 L Hgb 8.4 L Hct 25.9 L Plt Count [place] % (Auto) [place] # 1.1 H Seg Neutrophils % 74.4 H Seg Neuts % (Manual) Lymphocytes % (Manual) Monocytes % (Manual) Seg Neutrophils # 11.3 H Seg Neutrophils # Man Monocytes # (Manual) POC ABG pH POC ABG pCO2 POC ABG pO2 Sodium Potassium Chloride Carbon Dioxide BUN 19 H Creatinine Glucose Lactic Acid Calcium 7.8 L Magnesium 1.5 L Iron TIBC Ferritin C-Reactive Protein Albumin Extho-0-Nriqtiprw Elpsy-7-Uqkrxrrwd PEP Interpretation Vitamin B12 Urine Creatinine Urine Chloride Urine Total Protein Crossmatch 10/29/16 10/29/16 10/30/16 06:09 16:19 08:42 WBC RBC 2.67 L 2.85 L Hgb 7.8 L 8.4 L Hct 23.9 L 25.7 L Plt Count [place] % (Auto) 9.7 H [place] # 1.1 H 0.9 H Seg Neutrophils % Seg Neuts % (Manual) Lymphocytes % (Manual) Monocytes % (Manual) Seg Neutrophils # Seg Neutrophils # Man Monocytes # (Manual) POC ABG pH 7.458 H POC ABG pCO2 POC ABG pO2 54 L Sodium Potassium Chloride Carbon Dioxide BUN Creatinine Glucose Lactic Acid Calcium Magnesium Iron TIBC Ferritin C-Reactive Protein Albumin Ngdzh-1-Ejvfvjkgz Lyxzy-7-Isvtkqjro PEP Interpretation Vitamin B12 Urine Creatinine Urine Chloride Urine Total Protein Crossmatch
== END 2016-10-31 14:45 | disposition home or self-care (01) | DRG 853 ==
LOC: ED 20:00 → 3A 10-20 03:07
PROVIDERS: ADMIT Internal Medicine; ATTEND Internal Medicine
PROC: 30233N1 Transfusion of Nonautologous Red Blood Cells into Peripheral Vein, Percutaneous Approach (ICD-10-PCS; 2016-10-20)
PROC: 4A033R1 Measurement of Arterial Saturation, Peripheral, Percutaneous Approach (ICD-10-PCS; 2016-10-20)
PROC: 0BBC8ZX Excision of Right Upper Lung Lobe, Via Natural or Artificial Opening Endoscopic, Diagnostic (ICD-10-PCS; principal; 2016-10-30)
PROC: 0B9C8ZX Drainage of Right Upper Lung Lobe, Via Natural or Artificial Opening Endoscopic, Diagnostic (ICD-10-PCS; 2016-10-30)
DX: A41.9 Sepsis, unspecified organism (principal); K76.7 Hepatorenal syndrome; N17.0 Acute kidney failure with tubular necrosis; J96.01 Acute respiratory failure with hypoxia; G92 Toxic encephalopathy; J18.9 Pneumonia, unspecified organism; E87.1 Hypo-osmolality and hyponatremia; E87.6 Hypokalemia; I11.0 Hypertensive heart disease with heart failure; I50.9 Heart failure, unspecified; F32.9 Major depressive disorder, single episode, unspecified; K74.60 Unspecified cirrhosis of liver; E72.20 Disorder of urea cycle metabolism, unspecified; F10.10 Alcohol abuse, uncomplicated; E46 Unspecified protein-calorie malnutrition; I25.10 Atherosclerotic heart disease of native coronary artery without angina pectoris; I73.9 Peripheral vascular disease, unspecified; D63.8 Anemia in other chronic diseases classified elsewhere; Z86.19 Personal history of other infectious and parasitic diseases; Z90.710 Acquired absence of both cervix and uterus; Z68.22 Body mass index [BMI] 22.0-22.9, adult
CPT/HCPCS: 36415; 36600; 71010; 71250; 74176; 76700; 76770; 78582; 80048; 80053; 80074; 81001; 82010; 82140; 82164; 82270; 82436; 82570; 82607; 82728; 82747; 82803; 82962; 83550; 83690; 83735; 83880; 83935; 84156; 84165; 84166; 84300; 84484; 85007; 85025; 85027; 85652; 86021; 86038; 86140; 86160; 86850; 86900; 86901; 86920; 87040; 87102; 87116; 87220; 87400; 87517; 87806; 87902; 88112; 88305; 93005; 93010; 93306; 94640; 94760; 96361; 96374; 96375; 96376; A9540; A9558; C9113; J0171; J0696; J1170; J1644; J1940; J2060; J2250; J2270; J2370; J2405; J2704; J3010; J3475; J3480; J7030; J7040; J7070; P9016